=== PATIENT | female | born 1980 | race Caucasian/White ===

== ENCOUNTER 2021-08-03 02:49 | Outpatient (CLI) | payer OTHER, SELFPAY ==
--- NOTE | 2021-08-03 03:17 | PC.NURSE ---
[id number].[facility] called,informed pt came in stating she has had a migraine since Monday. Pt has taken fioricet and states the migraine dulls for about 2 hours then comes back just as bad. Pt states her pain is 2 when sitting and 7 when up moving. Orders received for IVF's, benadryl, and reglan.
[2021-08-03 03:35] VITALS: BP 109/56; PULSE 70
[2021-08-03] MEDS: diphenhydrAMINE HCl INJ 50 MG/ML VIAL 25 MG IV PUSH (03:39)
[2021-08-03] MEDS: METOCLOPRAMIDE HCL INJ 10 MG/2 ML VIAL IV PUSH (03:40)
[2021-08-03] MEDS: LACTATED RINGERS 1,000 ML 999 ML IV CONT (03:44)
--- NOTE | 2021-08-03 03:50 | OBADM ---
This patient, Kathie Danielson, admitted to the OB room OB Post 116 for observation. Patient/family oriented to hospital policies and general routines including ID bracelet, bed and alarms, visiting hours, pain management, procedures, bathroom and other care routines, personal items, smoking policy, room service/diet, and visiting hours. Patient/Family are encouraged to report perceived risks to care and to ask questions if they do not understand what they are told or what they should do.
--- NOTE | 2021-08-03 05:08 | PC.NURSE ---
Tigre CNM called,informed pt is stating she is feeling much better and would like to go home and sleep in her own bed. Discharge orders received.
== END 2021-08-03 05:23 ==
LOC: ANHOBOP 02:55 → ANHOBPP 08-09 06:24
PROVIDERS: PCP Nurse Practitioner Family; Visit Provider Obstetrics & Gynecology
DX: R51.9 Headache, unspecified (principal); O13.9 Gestational [pregnancy-induced] hypertension without significant proteinuria, unspecified trimester; Z3A.00 Weeks of gestation of pregnancy not specified
CPT/HCPCS: 99199; J1200; J2765; J7120

== ENCOUNTER 2021-09-29 12:32 | Observation (INO) | payer OTHER, SELFPAY ==
[2021-09-29] VITALS (9 sets, daily range): BP systolic 87–120; BP diastolic 40–67; PULSE 69–84; RESP 16; TEMP 36.2–36.6; BMI 36.8
--- NOTE | 2021-09-29 13:04 | OBADM ---
This patient, Kathie Danielson, admitted to the OB room 113 for observation. Patient/family oriented to hospital policies and general routines including ID bracelet, bed and alarms, visiting hours, pain management, procedures, bathroom and other care routines, personal items, smoking policy, room service/diet, and visiting hours. Patient/Family are encouraged to report perceived risks to care and to ask questions if they do not understand what they are told or what they should do.
[2021-09-29 14:08] LABS: Appearance Urine Clear (Clear); Bilirubin Urine Negative (Negative); Blood Urine Negative (Negative); Color Urine Yellow (Yellow); Glucose Urine UA Negative (Negative); Ketones Urine Negative (Negative); Leukocyte Esterase Ur 1+ LEU/UL (Negative); Nitrate Urine Negative (Negative); Protein Urine Negative (Negative); Urobilinogen Urine 0.2 mg/dL (<2.0); pH Urine 6.5 (5.0-9.0)
[2021-09-29 14:13] LABS: Bacteria Urine Trace /hpf; Mucus Urine Rare /lpf; RBC Urine 0-2 /hpf (0-2); Squamous Epithelial Cell Urine Few /hpf (Few); WBC Urine 0-3 /hpf
[2021-09-29 14:14] LABS: Add Urine Microscopic? YES
[2021-09-29] MEDS: NIFEdipine 30 MG TAB.ER.24 PO (14:50)
--- NOTE | 2021-10-01 07:27 | PM.OBTRLD ---
OB - Triage/Final Diagnosis Visit Information Date of evaluation: 09/29/21 Reason for evaluation: threatened labor Comments/Additional reasons for admission: I have assessed the risk for this patient, Kathie Danielson, and determined that she would benefit from observation care. Evaluation Laboratory results: Laboratory Tests 09/29/21 13:50 Urine Color Yellow Urine Appearance Clear Urine pH 6.5 Ur Specific [place] 1.010 Urine Protein Negative Urine Glucose (UA) Negative Urine Ketones Negative Ur Blood (Man) Negative Urine Nitrate Negative Urine Bilirubin Negative Urine Urobilinogen 0.2 Leukocyte Esterase Rfl 1+ H Urine RBC 0-2 Urine WBC 0-3 Ur Squamous Epith Cells Few Urine Bacteria Trace Urine Mucus Rare
== END 2021-09-29 16:45 | disposition home or self-care (01) ==
PROVIDERS: Advanced Practice Midwife; Admitting Provider Obstetrics & Gynecology; PCP Nurse Practitioner Family; Visit Provider Obstetrics & Gynecology
DX: O47.03 False labor before 37 completed weeks of gestation, third trimester (principal); Z3A.29 29 weeks gestation of pregnancy
CPT/HCPCS: 81001; A9270; G0378; G0379

== ENCOUNTER 2021-10-27 13:52 | Observation (INO) | payer OTHER, SELFPAY ==
[2021-10-27 14:12] VITALS: TEMP 36.3
[2021-10-27 14:17] VITALS: BP 116/61; PULSE 79
[2021-10-27 14:29] VITALS: BMI 36.5
[2021-10-27 15:30] LABS: Appearance Urine Clear (Clear); Bilirubin Urine Negative (Negative); Blood Urine Negative (Negative); Color Urine Yellow (Yellow); Glucose Urine UA Negative (Negative); Ketones Urine Negative (Negative); Leukocyte Esterase Ur 1+ LEU/UL (Negative); Nitrate Urine Negative (Negative); Protein Urine Negative (Negative); Specific Grav Ur 1.015 (1.001-1.035); Urobilinogen Urine 0.2 mg/dL (<2.0); pH Urine 6.5 (5.0-9.0)
[2021-10-27 15:45] LABS: Bacteria Urine Trace /hpf; Squamous Epithelial Cell Urine Few /hpf (Few)
[2021-10-27 15:49] LABS: Add Urine Microscopic? YES
--- NOTE | 2021-10-31 18:34 | P.PNOB_ITS ---
OB - Triage/Final Diagnosis Visit Information Date of evaluation: 10/27/21 Reason for evaluation: threatened labor Comments/Additional reasons for admission: I have assessed the risk for this patient, Kathie Danielson, and determined that she would benefit from observation care. Evaluation Laboratory results: Laboratory Tests 10/27/21 14:17 Urine Color Yellow Urine Appearance Clear Urine pH 6.5 Ur Specific [place] 1.015 Urine Protein Negative Urine Glucose (UA) Negative Urine Ketones Negative Ur Blood (Man) Negative Urine Nitrate Negative Urine Bilirubin Negative Urine Urobilinogen 0.2 Leukocyte Esterase Rfl 1+ H Urine WBC 4-6 H Ur Squamous Epith Cells Few Urine Bacteria Trace
== END 2021-10-27 15:45 | disposition home or self-care (01) ==
PROVIDERS: Advanced Practice Midwife; Admitting Provider Obstetrics & Gynecology; PCP Nurse Practitioner Family; Visit Provider Obstetrics & Gynecology
DX: O47.9 False labor, unspecified (principal); Z3A.00 Weeks of gestation of pregnancy not specified
CPT/HCPCS: 81001; G0378; G0379

== ENCOUNTER 2021-11-12 21:56 | Observation (INO) | payer OTHER, SELFPAY ==
[2021-11-12 22:30] VITALS: BMI 36.5
--- NOTE | 2021-11-13 00:40 | OBADM ---
This patient, Kathie Danielson, admitted to the OB room Labor/Delivery/Recovery 106 for observation. Patient/family oriented to hospital policies and general routines including ID bracelet, bed and alarms, visiting hours, pain management, procedures, bathroom and other care routines, personal items, smoking policy, room service/diet, and visiting hours. Patient/Family are encouraged to report perceived risks to care and to ask questions if they do not understand what they are told or what they should do.
--- NOTE | 2021-12-07 10:21 | PM.OBTRLD ---
OB - Triage/Final Diagnosis Visit Information Comments/Additional reasons for admission: I have assessed the risk for this patient, Kathie Danielson, and determined that she would benefit from observation care. Final Diagnosis (1) False labor: Code(s): O47.9 - False labor, unspecified Status: Acute
== END 2021-11-13 02:30 | disposition home or self-care (01) ==
PROVIDERS: Admitting Provider Obstetrics & Gynecology; PCP Nurse Practitioner Family; Visit Provider Obstetrics & Gynecology
DX: O47.9 False labor, unspecified (principal); Z3A.00 Weeks of gestation of pregnancy not specified
CPT/HCPCS: G0378; G0379

== ENCOUNTER 2021-11-15 16:44 | Observation (INO) | payer OTHER, SELFPAY ==
--- NOTE | 2021-11-15 16:44 | OBADM ---
This patient, Kathie Danielson, admitted to the OB room Labor/Delivery/Recovery 105 for observation. Patient/family oriented to hospital policies and general routines including ID bracelet, bed and alarms, visiting hours, pain management, procedures, bathroom and other care routines, personal items, smoking policy, room service/diet, and visiting hours. Patient/Family are encouraged to report perceived risks to care and to ask questions if they do not understand what they are told or what they should do.
[2021-11-15 17:49] VITALS: BMI 36.5
[2021-11-15 18:03] LABS: Appearance Urine Clear (Clear); Bilirubin Urine Negative (Negative); Color Urine Yellow (Yellow); Glucose Urine UA Negative (Negative); Ketones Urine Negative (Negative); Leukocyte Esterase Ur Negative LEU/UL (Negative); Nitrate Urine Negative (Negative); Protein Urine Negative (Negative); Urobilinogen Urine 0.2 mg/dL (<2.0)
[2021-11-15 18:11] LABS: Add Urine Microscopic? YES; Blood Urine Trace (Negative)
[2021-11-15] MEDS: ZOLPIDEM TARTRATE (*CRX) 5 MG TABLET PO (20:11)
--- NOTE | 2021-11-17 18:04 | P.PNOB_ITS ---
OB - Triage/Final Diagnosis Visit Information Date of evaluation: 11/15/21 Reason for evaluation: threatened labor Comments/Additional reasons for admission: I have assessed the risk for this patient, Kathie Danielson, and determined that she would benefit from observation care. Evaluation Laboratory results: Laboratory Tests 11/15/21 17:52 Urine Color Yellow Urine Appearance Clear Urine pH 6.0 Ur Specific [place] 1.010 Urine Protein Negative Urine Glucose (UA) Negative Urine Ketones Negative Ur Blood (Man) Trace Urine Nitrate Negative Urine Bilirubin Negative Urine Urobilinogen 0.2 Leukocyte Esterase Rfl Negative
--- NOTE | 2021-11-19 07:23 | P.PNOB_ITS ---
OB - Triage/Final Diagnosis Visit Information Date of evaluation: 11/15/21 Reason for evaluation: threatened labor Comments/Additional reasons for admission: I have assessed the risk for this patient, Kathie Danielson, and determined that she would benefit from observation care. Evaluation Laboratory results: Laboratory Tests 11/15/21 17:52 Urine Color Yellow Urine Appearance Clear Urine pH 6.0 Ur Specific [place] 1.010 Urine Protein Negative Urine Glucose (UA) Negative Urine Ketones Negative Ur Blood (Man) Trace Urine Nitrate Negative Urine Bilirubin Negative Urine Urobilinogen 0.2 Leukocyte Esterase Rfl Negative
== END 2021-11-15 20:20 | disposition home or self-care (01) ==
PROVIDERS: Advanced Practice Midwife; Admitting Provider Obstetrics & Gynecology; PCP Nurse Practitioner Family; Visit Provider Obstetrics & Gynecology
DX: O47.9 False labor, unspecified (principal); Z3A.00 Weeks of gestation of pregnancy not specified
CPT/HCPCS: 81001; A9270; G0378; G0379

== ENCOUNTER 2021-11-18 17:03 | Outpatient (CLI) | payer OTHER, SELFPAY ==
[2021-11-18 17:56] VITALS: PULSE 97
== END 2021-11-18 18:10 | disposition home or self-care (01) ==
PROVIDERS: PCP Nurse Practitioner Family; Visit Provider Advanced Practice Midwife
DX: O42.90 Premature rupture of membranes, unspecified as to length of time between rupture and onset of labor, unspecified weeks of gestation (principal); Z3A.00 Weeks of gestation of pregnancy not specified
CPT/HCPCS: 59025; 84112

== ENCOUNTER 2021-11-20 15:08 | Observation (INO) | payer OTHER, SELFPAY ==
[2021-11-20] VITALS (25 sets, daily range): BP systolic 100–128; BP diastolic 60–87; PULSE 64–91; TEMP 36.8; O2SAT 95–100
--- NOTE | ~2021-11-20 | XR_ITS ---
EXAMINATION: XR chest 1V portable Exam Date/Time: 11/20/2021 16:25 CDT HISTORY: shortness of breath/ CHEST TIGHTNESS, DOUBLE SHEILDED Comparison: 06/28/2016. RESULT: Lines, tubes, and devices: None. Lungs and pleura: Clear. Cardiomediastinal silhouette: Stable cardiomediastinal silhouette. Other: No acute osseous or upper abdominal finding. IMPRESSION: No acute cardiopulmonary process. Reviewed, dictated and finalized at location K.
--- NOTE | 2021-11-20 15:08 | OBADM ---
This patient, Kathie Danielson, admitted to the OB room OB Post 115 for observation. Patient/family oriented to hospital policies and general routines including ID bracelet, bed and alarms, visiting hours, pain management, procedures, bathroom and other care routines, personal items, smoking policy, room service/diet, and visiting hours. Patient/Family are encouraged to report perceived risks to care and to ask questions if they do not understand what they are told or what they should do.
--- NOTE | 2021-11-20 15:15 | PC.NURSE ---
pt presents with chest tightness, numbness in both hands and a migraine that started around 1100 this morning. Pt reports taking a nap with no relief after.
--- NOTE | 2021-11-20 15:30 | PC.NURSE ---
Ok Jurado notifed of this pt and pt complaints. Orders received for pt to have EKG, CBC, CMP, UA and report them back.
--- NOTE | 2021-11-20 15:35 | ECG_ITS ---
Measurements Intervals [place] Rate: 70 P: 40 WY: 160 QRS: 70 QRSD: 102 T: 38 QT: 379 QTc: 411 Interpretive Statements SINUS RHYTHM NORMAL ECG NO PREVIOUS ECG AVAILABLE FOR COMPARISON Electronically Signed On 11-21-2021 11:01:07 CDT by Kwasi Castillo M.D.
[2021-11-20 15:52] LABS: Basophils Percent Auto 0.4 % (0.2-1.2); Eosinophils Absolute Auto 0.1 K/mm3 (0-0.3); Eosinophils Percent Auto 0.8 % (0-4.4); Hematocrit 29.5 % (37.0-47.0); Hemoglobin 9.3 g/dL (12.0-15.0); Lymphocytes Absolute Auto 1.72 K/mm3 (0.9-3.2); Lymphocytes Percent Auto 17.5 % (18.3-44.2); Mean Corpuscular HGB Conc 31.5 g/dl (32-36); Mean Corpuscular Hemoglobin 26.4 pg (26-34); Mean Corpuscular Volume 83.8 fl (80-100); Mean Platelet Volume 10.7 fl (7.4-10.4); Monocytes Absolute Auto 0.7 K/mm3 (0.1-0.6); Neutrophils Absolute Auto 7.1 K/mm3 (1.3-6.7); Neutrophils Percent Auto 72.3 % (45.5-73.1); Platelet Count Result 167 k/mm3 (150-375); Red Blood Count 3.52 M/mm3 (4.2-5.4); Red Cell Distribution Width 14.4 % (11.5-14.5); White Blood Count 9.9 K/mm3 (4.5-10.0)
[2021-11-20 16:02] LABS: Alanine Aminotransferase 9 U/L (6-35); Albumin Level 3.5 g/dL (3.5-5.1); Alkaline Phosphatase 100 U/L (38-126); Anion Gap 4 mmol/L (8-16); Aspartate Amino Transferase 12 U/L (14-36); Bilirubin,Total 0.3 mg/dL (0.2-1.3); Blood Urea Nitrogen 6 mg/dL (7-17); Calcium 8.5 mg/dL (8.4-10.2); Carbon Dioxide 19 mmol/L (22-30); Chloride 108 mmol/L (98-107); Estimated Glomerular Filt Rate > 60; Glucose 97 mg/dL (65-110); Potassium 3.6 mmol/L (3.4-5.0); Sodium 131 mmol/L (137-145)
[2021-11-20 16:03] LABS: Appearance Urine Clear (Clear); Bilirubin Urine Negative (Negative); Blood Urine Negative (Negative); Color Urine Yellow (Yellow); Glucose Urine UA Negative (Negative); Ketones Urine Negative (Negative); Leukocyte Esterase Ur Trace LEU/UL (NEGATIVE); Nitrate Urine Negative (Negative); Protein Urine Negative (Negative); Specific Grav Ur 1.025 (1.001-1.035); Urobilinogen Urine 0.2 mg/dL (<2.0)
[2021-11-20 16:13] LABS: Mucus Urine Rare /lpf; RBC Urine 0-2 /hpf (0-2); Squamous Epithelial Cell Urine Many /hpf (Few); WBC Urine 0-3 /hpf (0-3)
--- NOTE | 2021-11-20 16:16 | PC.NURSE ---
Ok Jurado updated with labs and ekg results. Orders received for pt to have a chest xray and neb tx.
[2021-11-20 16:24] LABS: Add Urine Microscopic? YES
[2021-11-20] MEDS: ALBUTEROL SULFATE NEB 2.5 MG/3 ML INH 1.25 MG INHALATION (16:25)
--- NOTE | 2021-11-20 16:50 | PC.NURSE ---
ANNALISA Jurado updated on pt. Pt reports feeling better and wanting to go home. Discharge order received from ANNALISA.
--- NOTE | 2021-11-24 07:31 | P.PNOB_ITS ---
OB - Triage/Final Diagnosis Visit Information Date of evaluation: 11/20/21 Reason for evaluation: other (SOB) Comments/Additional reasons for admission: I have assessed the risk for this patient, Kathie Danielson, and determined that she would benefit from observation care. Evaluation Laboratory results: Laboratory Tests 11/20/21 11/20/21 11/20/21 15:42 15:42 15:43 WBC 9.9 RBC 3.52 L Hgb 9.3 L Hct 29.5 L MCV 83.8 MCH 26.4 MCHC 31.5 L RDW 14.4 Plt Count 167 MPV 10.7 H Immature Gran % (Auto) 2.0 H Neut % (Auto) 72.3 Lymph % (Auto) 17.5 L [place] % (Auto) 7.0 Eos % (Auto) 0.8 Baso % (Auto) 0.4 Lymph # (Auto) 1.72 [place] # (Auto) 0.7 H Eos # (Auto) 0.1 Baso # (Auto) 0.0 Abs Immat Gran (auto) 0.20 H Absolute Neuts (auto) 7.1 H Absolute Nucleated RBC 0.0 Nucleated RBC % 0.0 Sodium 131 L Potassium 3.6 Chloride 108 H Carbon Dioxide 19 L Anion Gap 4 L BUN 6 L Creatinine 0.50 L Estim Creat Clear Calc Not Reportable Estimated GFR > 60 Glucose 97 Calcium 8.5 Total Bilirubin 0.3 AST 12 L ALT 9 Alkaline Phosphatase 100 Total Protein 7.0 Albumin 3.5 Urine Color Yellow Urine Appearance Clear Urine pH 6.0 Ur Specific [place] 1.025 Urine Protein Negative Urine Glucose (UA) Negative Urine Ketones Negative Ur Blood (Man) Negative Urine Nitrate Negative Urine Bilirubin Negative Urine Urobilinogen 0.2 Ur Leukocyte Esterase Trace H Urine RBC 0-2 Urine WBC 0-3 Ur Squamous Epith Cells Many H Urine Mucus Rare
== END 2021-11-20 17:00 | disposition home or self-care (01) ==
PROVIDERS: Advanced Practice Midwife; Admitting Provider Obstetrics & Gynecology; PCP Nurse Practitioner Family; Visit Provider Obstetrics & Gynecology
DX: O26.893 Other specified pregnancy related conditions, third trimester (principal); R06.02 Shortness of breath; Z3A.37 37 weeks gestation of pregnancy
CPT/HCPCS: 36415; 71045; 80053; 81001; 85025; 93005; G0378; G0379

== ENCOUNTER 2021-12-06 06:55 | Inpatient (IN) | payer OTHER, SELFPAY ==
[2021-12-06] VITALS (87 sets, daily range): BP systolic 77–154; BP diastolic 41–91; PULSE 58–108; RESP 16; TEMP 36.2–36.7; O2SAT 92–100; BMI 36.5
--- OUTSIDE RECORDS SUMMARY | 2021-12-06 07:02 | XMS_ITS | Encounter Summary ---
:1980 Author Reason for Visit OB visit OB [id number] EDC 12/10/2021 lmp 03/13/2021 Assessment and Plan Assessment Note Patient is _34__weeks . Discuss ed plan. Discussion Note: None recorded.Patient educational handouts: No information available. Plan of Care Reminders Provider Appointments None recorded. ? ? Lab None recorded. ? ? Referral None recorded. ? ? Procedures None recorded. ? ? Surgeries None recorded. ? ? Imaging None recorded. ? ? Medications Name Start Date ? ? tjdbwaepdg-luakutfxevqsp-uzrnswgv 50 mg-325 mg-40 mg t ablet ? TAKE ONE TABLET EVERY FOUR TO SIX HOURS NEEDED. MA X 6 TABLETS IN 24 HOURS nifedipine ER 30 mg tablet,extended release 24 hr ? TAKE 1 TABLET BY MOUTH EVERY DAY ondansetron HCl 4 mg tablet ? TAKE 1 TABLET BY MOUTH EVERY 4 TO 6 HOURS NEEDED F OR NAUSEA ? zolpidem 5 mg tablet ? TAKE 1 TABLET BY MOUTH EVERY DAY AT BEDTIME Medications Administered None recorded. Vitals Height Weight BMI Blood Pressure 5 ft 8 in 236.99 lbs 36 kg/m2 110/68 mm[Hg] Results Lab Results None recorded. Allergies Code Code System Name Reaction Severity Onset 6922 RxNorm Metronidazole Rash ? ? Problems Name Status Onset Date Source ? Active 06/14/2021 ? Maternal Obesity Complicating , Childbirth and the Acti ve ? ? 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 ? History of Loop Electrosurgical Excision Procedure Active ? ? History of Gestational
--- OUTSIDE RECORDS SUMMARY | 2021-12-06 07:02 | XMS_ITS | Encounter Summary ---
:1980 Author Reason for Visit OB visit OB [id number] EDC 12/10/2021 LMP 03/13/2021 Assessment and Plan Assessment Note Patient is _30__weeks . Discuss ed plan. 1. Routine care 2. Threatened premature labor - not del ivered ? Procardia XL 30 mg tablet,extended re lease Discussion Note: None recorded.Patient educational handouts: No information available. Plan of Care Reminders Provider Appointments None recorded. ? ? Lab None recorded. ? ? Referral None recorded. ? ? Procedures None recorded. ? ? Surgeries None recorded. ? ? Imaging None recorded. ? ? Medications Name Start Date ? ? lmzftsnapn-qxdqasnfsgbjh-elhgiagv 50 mg-325 mg-40 mg t ablet ? [...] BMI Blood Pressure 5 ft 8 in 242 lbs 36.8 kg/m2 114/74 mm[Hg] Results Lab Results None recorded. Allergies Code Code System Name Reaction Severity Onset 6922 RxNorm Metronidazole Rash ? ? Problems Name Status Onset Date Source ? Active 06/14/2021 ? Maternal Obesity Complicating , Childbirth and the Acti ve ? ? Puerperium, Antepart
--- OUTSIDE RECORDS SUMMARY | 2021-12-06 07:02 | XMS_ITS | Encounter Summary ---
:1980 Author Reason for Visit None recorded. Assessment and Plan 1. Advanced maternal age ? US, obstetric, follow-up Discussion Note: None recorded.Patient educational handouts: No information available. Plan of Care Reminders Provider Appointments None recorded. ? ? Lab None recorded. ? ? Referral None recorded. ? ? Procedures None recorded. ? ? Surgeries None recorded. ? ? Imaging US, Obstetric, Follow-up 11/10/2021 Christiane mccarthy Medications Name Start Date ? ? ujhaxfprok-ybejlfvkfbqaf-eqzbydlv 50 mg-325 mg-40 mg t ablet ? [...] AT BEDTIME Medications Administered None recorded. Vitals None recorded. Results Lab Results None recorded. Allergies Code Code System Name Reaction Severity Onset 6922 RxNorm Metronidazole Rash ? ? Problems Name Status Onset Date Source ? Active 06/14/2021 ? Maternal Obesity Complicating , Childbirth and the Acti ve ? ? 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 ? History of Loop Electrosurgical Excision Procedure Active ? ? History of Gestational Hypertension Active ? ? Procedures Date Name Performed by ? 06/12/2016 Colposcopy Info
--- OUTSIDE RECORDS SUMMARY | 2021-12-06 07:02 | XMS_ITS | Encounter Summary ---
:1980 Author Reason for Visit OB visit Assessment and Plan 1. Routine care Discussion Note: None recorded.Patient educational handouts: No information available. Plan of Care Reminders Provider Appointments None recorded. ? ? Lab None recorded. ? ? Referral None recorded. ? ? Procedures None recorded. ? ? Surgeries None recorded. ? ? Imaging None recorded. ? ? Medications Name Start Date ? ? kzffnhbfau-hsvhdkfpnlkbn-ysgxkxme 50 mg-325 mg-40 mg t ablet ? [...] BMI Blood Pressure 5 ft 8 in 240 lbs 36.5 kg/m2 130/77 mm[Hg] Results Lab Results None recorded. Allergies [...]
--- OUTSIDE RECORDS SUMMARY | 2021-12-06 07:02 | XMS_ITS ---
:1980 Author Care Team Providers Name Role Phone Rain Jurado Primary Care Provider Unavailable Allergies Code Code System Name Reaction Severity Status Onset 6921 RxNorm Metronidazole Rash ? Active ? Medications Name Status Start Date Stop Date ? ? albuterol sulfate HFA 90 mcg/actuation aerosol inhaler Completed ? 07/13/2021 INHALE 2 PUFFS BY MOUTH EVERY 6 HOURS NEEDED FOR SHORTNESS O F BREATH Alprazolam Intensol 1 mg/mL oral concentrate Completed ? 04/12/2018 take 0.25 milliliter by oral route 3 ti mes every day mixed with water, juice, soda, soda-like beverage, applesauce or pudding amoxicillin 875 mg tablet Completed ? 2020 TAKE 1 TABLET BY MOUTH EVERY 12 HOURS UNTIL ALL TAKEN azithromycin 250 mg tablet Completed ? 07/13 mrchsedjsf-zmkgibjaxvwpa-mzaekehz 50 mg-325 Active ? Not available mg-40 mg tablet Cleocin 100 mg vaginal suppository Completed 09/13/2018 09/14/2018 insert 1 suppository by vaginal route every night for 3 days at bedtime clindamycin 2 % vaginal cream Completed 09/14/2018 insert 1 applicatorful by vaginal route every day for 7 days at bedtime clindamycin HCl 300 mg capsule Completed ? 1 07/10/2020 TAKE 1 CAPSULE BY MOUTH EVERY 6 HOURS TILL GONE. Clindesse 2 % vaginal cream,extended release Completed 12/201604/12/2018 insert 1 applicatorful by vaginal route once Cyclessa (28) 0.1 mg/0.125 mg/0.15 mg-25 mcg tablet Completed 07/14/2014 07/17/2017 take 1 tablet by oral route every day for 28 days Depo-Provera 150 mg/mL intramuscular syringe Completed 07/201407/17/2017 inject 1 milliliter by intramuscular route every 3 months Iveth 0.35 mg tablet Completed 11/15/2018 05/10/2021 take 1 tablet by oral rout
--- OUTSIDE RECORDS SUMMARY | 2021-12-06 07:02 | XMS_ITS | Encounter Summary ---
:1980 Author Reason for Visit OB visit OB [id number] EDC 12/10/2021 LMP 03/13/2021 Assessment and Plan Assessment Note Patient is _36__weeks . Discuss ed plan. 1. Routine care Discussion Note: None recorded.Patient educational handouts: No information available. Plan of Care Reminders Provider Appointments None recorded. ? ? Lab None recorded. ? ? Referral None recorded. ? ? Procedures None recorded. ? ? Surgeries None recorded. ? ? Imaging None recorded. ? ? Medications Name Start Date ? ? pwfoanpjdq-cbmrbjgarojen-jwlkosym 50 mg-325 mg-40 mg t ablet ? [...] BMI Blood Pressure 5 ft 8 in 239 lbs 36.3 kg/m2 112/70 mm[Hg] Results Lab Results None recorded. Allergies Code Code System Name Reaction Severity Onset 6922 RxNorm Metronidazole Rash ? ? Problems Name Status Onset Date Source ? Active 06/14/2021 ? Maternal Obesity Complicating , Childbirth and the Acti ve ? ? 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 ? History of Loop Electrosurgical Excision Procedure
--- OUTSIDE RECORDS SUMMARY | 2021-12-06 07:02 | XMS_ITS | Encounter Summary ---
:1980 Author Reason for Visit OB visit OB [id number] EDC 12/10/2021 LMP 03/13/2021 Assessment and Plan Assessment Note Patient is __35_weeks . Discuss ed plan. 1. Routine care Discussion Note: None recorded.Patient educational handouts: No information available. Plan of Care Reminders Provider Appointments None recorded. ? ? Lab None recorded. ? ? Referral None recorded. ? ? Procedures None recorded. ? ? Surgeries None recorded. ? ? Imaging None recorded. ? ? Medications Name Start Date ? ? cugspdujeq-hnyvgkvkuomnh-rfseyjql 50 mg-325 mg-40 mg t ablet ? [...] BEDTIME Medications Administered None recorded. Vitals Height BMI 5 ft 8 in 36.8 kg/m2 Results Lab Results None recorded. Allergies Code Code System Name Reaction Severity Onset 5678 RxNorm Metronidazole Rash ? ? Problems Name Status Onset Date Source ? Active 06/14/2021 ? Maternal Obesity Complicating , Childbirth and the Acti ve ? ? 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 ? History of Loop Electrosurgical Excision Procedure Active ? ?
--- OUTSIDE RECORDS SUMMARY | 2021-12-06 07:02 | XMS_ITS | Encounter Summary ---
:1980 Author Reason for Visit OB visit OB [id number] EDC 12/10/2021 LMP 03/13/2021 Assessment and Plan Assessment Note Patient is __37_weeks . Discuss ed plan. 1. Routine care Discussion Note: None recorded.Patient educational handouts: No information available. Plan of Care Reminders Provider Appointments None recorded. ? ? Lab None recorded. ? ? Referral None recorded. ? ? Procedures None recorded. ? ? Surgeries None recorded. ? ? Imaging None recorded. ? ? Medications Name Start Date ? ? ybtwecshax-pkqovewmnnhml-dtnxiuqd 50 mg-325 mg-40 mg t ablet ? [...] ft 8 in 239 lbs 36.3 kg/m2 126/72 mm[Hg] Results Lab Results None recorded. Allergies Code Code System Name Reaction Severity Onset 6922 RxNorm Metronidazole Rash ? ? Problems Name Status Onset Date Source ? Active 06/14/2021 ? Maternal Obesity Complicating , Childbirth and the Acti ve ? ? 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 ? History of Loop Electrosurgical Excision Procedure
--- OUTSIDE RECORDS SUMMARY | 2021-12-06 07:02 | XMS_ITS | Encounter Summary ---
:1980 Author Reason for Visit OB visit OB [id number] EDC 12/10/2021 LMP 03/13/2021 Assessment and Plan Assessment Note Patient is _32__weeks . Discuss ed plan. 1. Routine care Discussion Note: None recorded.Patient educational handouts: No information available. Plan of Care Reminders Provider Appointments None recorded. ? ? Lab None recorded. ? ? Referral None recorded. ? ? Procedures None recorded. ? ? Surgeries None recorded. ? ? Imaging None recorded. ? ? Medications Name Start Date ? ? dxrzkofcli-sktbkqussofkt-mtnjnbfo 50 mg-325 mg-40 mg t ablet ? [...] ft 8 in 240 lbs 36.5 kg/m2 116/71 mm[Hg] Results Lab Results None recorded. Allergies Code Code System Name Reaction Severity Onset 6922 RxNorm Metronidazole Rash ? ? Problems Name Status Onset Date Source ? Active 06/14/2021 ? Maternal Obesity Complicating , Childbirth and the Acti ve ? ? 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 ? History of Loop Electrosurgical Excision Procedure
--- OUTSIDE RECORDS SUMMARY | 2021-12-06 07:03 | XMS_ITS ---
:1980 Author Care Team Providers Name Role Phone YOVANI BEDOLLA MD OTHER [phone] DURGA RODRÍGUEZ NP Primary Care Provider Unavailable Allergies Code Code System Name Reaction Severity Status Onset 20271119 RxNorm Metrogel ? ? Active ? Notes: Some allergies listed in Docume nts: #[id number], #[id number], #[id number] could not be added to this patient's chart. Please review these documents and add these allergies to the patient's chart manuall y as needed. Medications Name Status Start Date Stop Date ? ? alprazolam 0.25 mg tablet Active ? Not av ailable TK 1 T PO QD PRN amoxicillin 500 mg capsule Completed ? 11/21 TK 1 C PO Q 12 H FOR 10 DAYS amoxicillin 500 mg tablet Completed ? 2016 Take 1 tablet every 12 hours by oral route for 10 days. amoxicillin 875 mg tablet Active ? Not av ailable TK 1 T PO Q 12 H azithromycin 500 mg tablet Completed ? 06/30 TK 2 TS PO 1 TIME sulfamethoxazole 800 mg-trimethoprim 160 mg tablet Active ? Not available benzonatate 200 mg capsule Completed ? 11/21 TK ONE C PO TID Caziant (28) 0.1 mg/0.125 mg/0.15 mg-25 mcg tablet Unknown ? Not available clindamycin 2 % vaginal cream Active ? No t available IVB FOR 7 DAYS cyclobenzaprine 10 mg tablet Completed ? 10/2016 hydrocodone 5 mg-acetaminophen 325 mg tablet Active ? Not available TK 1 T PO Q 4 H PRF PAIN Lidocaine Viscous 2 % mucosal solution Completed ? 12/04/2013 Take 5 mL every 4-6 hours by oral route as needed for 15 days. methocarbamol 750 mg tablet Completed ? 10/2016
--- OUTSIDE RECORDS SUMMARY | 2021-12-06 07:03 | XMS_ITS | Encounter Summary ---
:1980 Author Reason for Visit OB visit OB [id number] EDC 12/10/2021 LMP 03/13/2021 Assessment and Plan Assessment Note Patient is _28__weeks . Discuss ed plan. 1. Routine care Discussion Note: None recorded.Patient educational handouts: No information available. Plan of Care Reminders Provider Appointments None recorded. ? ? Lab None recorded. ? ? Referral None recorded. ? ? Procedures None recorded. ? ? Surgeries None recorded. ? ? Imaging None recorded. ? ? Medications Name Start Date ? ? vtljndoghx-zuqdksuoczfcv-eldgdafe 50 mg-325 mg-40 mg t ablet ? [...] ft 8 in 242 lbs 36.8 kg/m2 127/77 mm[Hg] Results Lab Results None recorded. Allergies Code Code System Name Reaction Severity Onset 6922 RxNorm Metronidazole Rash ? ? Problems Name Status Onset Date Source ? Active 06/14/2021 ? Maternal Obesity Complicating , Childbirth and the Acti ve ? ? 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 ? History of Loop Electrosurgical Excision Procedur
--- OUTSIDE RECORDS SUMMARY | 2021-12-06 07:03 | XMS_ITS | Encounter Summary ---
:1980 Author Reason for Visit None recorded. Assessment and Plan 1. Maternal obesity complicating pregna ncy, childbirth and the puerperium, antepartum ? US, obstetric, follow-up Discussion Note: None recorded.Patient educational handouts: No information available. Plan of Care Reminders Provider Appointments None recorded. ? ? Lab None recorded. ? ? Referral None recorded. ? ? Procedures None recorded. ? ? Surgeries None recorded. ? ? Imaging US, Obstetric, Follow-up 09/22/2021 Christiane mccarthy Medications Name Start Date ? ? prkjkhsrwy-jkbtfkgnunnag-qowtnwgt 50 mg-325 mg-40 mg t ablet ? [...] Code Code System Name Reaction Severity Onset 9225 RxNorm Metronidazole Rash ? ? Problems Name Status Onset Date Source ? Active 06/14/2021 ? Maternal Obesity Complicating , Childbirth and the Acti ve ? ? 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 ? History of Loop Electrosurgical Excision Procedure Active ? ? History of Gestational Hypertension Active ? ? Procedures Date Name
--- NOTE | 2021-12-06 07:28 | LDADM ---
This patient, Kathie Danielson, was admitted to Labor/Delivery/Recovery 104 on 12/06/21 at 06:55. Plans for labor, pain management and were discussed with patient. Patient/family oriented to hospital policies and general routines including ID bracelet, bed and alarms, visiting hours, pain management, procedures, bathroom and other care routines, personal items, smoking policy, room service/diet and guest tray routines, security routines, and visiting hours. Patient/Family are encouraged to report perceived risks to care and to ask questions if they do not understand what they are told or what they should do. See [facility] for further documentation.
[2021-12-06 07:43] LABS: Basophils Absolute Auto 0.1 K/mm3 (0.0-0.1); Basophils Percent Auto 0.7 % (0.2-1.2); Eosinophils Absolute Auto 0.1 K/mm3 (0-0.3); Eosinophils Percent Auto 0.5 % (0-4.4); Hematocrit 32.7 % (37.0-47.0); Hemoglobin 10.5 g/dL (12.0-15.0); Immature Granulocyte Absolute 0.14 K/mm3 (0.00-0.031); Immature Granulocyte Percent A 1.4 % (0-0.5); Lymphocytes Absolute Auto 1.81 K/mm3 (0.9-3.2); Lymphocytes Percent Auto 18.2 % (18.3-44.2); Mean Corpuscular HGB Conc 32.1 g/dl (32-36); Mean Corpuscular Hemoglobin 26.1 pg (26-34); Mean Corpuscular Volume 81.3 fl (80-100); Mean Platelet Volume 11.1 fl (7.4-10.4); Monocytes Absolute Auto 0.6 K/mm3 (0.1-0.6); Monocytes Percent Auto 5.8 % (2.6-8.5); Neutrophils Absolute Auto 7.3 K/mm3 (1.3-6.7); Neutrophils Percent Auto 73.4 % (45.5-73.1); Platelet Count Result 183 k/mm3 (150-375); Red Blood Count 4.02 M/mm3 (4.2-5.4); Red Cell Distribution Width 15.2 % (11.5-14.5)
[2021-12-06] MEDS: LACTATED RINGERS 1,000 ML 125 ML IV CONT ×2 (07:47→10:46)
[2021-12-06] MEDS: OXYTOCIN 30 UNITS/NS 500 ML 30 UNITS/500 ML BAG IV CONT (07:47)
--- NOTE | 2021-12-06 08:57 | WPDANESEPP ---
Anes - Eval Pre Procedure Procedure: labor pain management Date/Time: 12/06/21 08:57 Surgeon: Chata Preop Diagnosis: Pain during labor Pre Op Diagnosis: Induction of Labor Patient Data Age: 41 Gender: F Height: 68 Weight: 240lbs Last Vital Signs Pulse 80 12/06/21 08:50 BP 125/66 12/06/21 08:50 O2 Del Method Room Air 12/06/21 07:27 Allergies Allergy/AdvReac Type Severity Reaction Status Date / Time metronidazole Allergy Mild RASH Verified 12/06/21 07:34 Home Medications Medication Instructions Recorded Confirmed Type albuterol sulfate 90 mcg/actuation 2 puff inhalation Q4H PRN 09/29/21 12/06/21 History aerosol inhaler Shortness Of Breath famotidine 20 mg tablet (Pepcid) 20 mg PO BID PRN Indigestion 09/29/21 12/06/21 History ferrous sulfate 142 mg (45 mg 142 mg PO BID 09/29/21 12/06/21 History iron) tablet,extended release (Slow Fe) ondansetron HCl 4 mg tablet 4 mg PO Q6H PRN Nausea 09/29/21 12/06/21 History vit no.95-ferrous 1 tablet PO DAILY 09/29/21 12/06/21 History fumarate 28 mg-folic acid 800 mcg tablet () aspirin 81 mg tablet,delayed 81 mg PO DAILY 11/10/21 12/06/21 History release (Ran Low Dose Aspirin) zolpidem 5 mg tablet 1 tablet PO PRN PRN Sleep 12/06/21 12/06/21 History Laboratory Tests 12/06/21 12/06/21 12/06/21 07:24 07:24 07:25 WBC 10.0 K/mm3 K/mm3 (4.5-10.0) RBC 4.02 M/mm3 L M/mm3 (4.2-5.4) Hgb 10.5 g/dL L g/dL (12.0-15.0) Hct 32.7 % L % (37.0-47.0) MCV 81.3 fl fl (80-100) MCH 26.1 pg pg (26-34) MCHC 32.1 g/dl g/dl (32-36) RDW 15.2 % H % (11.5-14.5) Plt Count 183 k/mm3 k/mm3 (150-375) MPV 11.1 fl H fl (7.4-10.4) Immature Gran % (Auto) 1.4 % H % (0-0.5) Neut % (Auto) 73.4 % H % (45.5-73.1) Lymph % (Auto) 18.2 % L % (18.3-44.2) [place] % (Auto) 5.8 % % (2.6-8.5) Eos % (Auto) 0.5 % % (0-4.4) Baso % (Auto) 0.7 % % (0.2-1.2) Lymph # (Auto) 1.81 K/mm3 K/mm3 (0.9-3.2) [place] # (Auto) 0.6 K/mm3 K/mm3 (0.1-0.6) Eos # (Auto) 0.1 K/mm3 K/mm3 (0-0.3) Baso # (Auto) 0.1 K/mm3 K/mm3 (0.0-0.1) Abs Immat Gran (auto) 0.14 K/mm3 H K/mm3 (0.00-0.031) Absolute Neuts (auto) 7.3 K/mm3 H K/mm3 (1.3-6.7) Absolute Nucleated RBC 0.0 K/mm3 K/mm3 (0.0-0.012) Nucleated RBC % 0.0 % % (0.0-0.2) RPR Pending Blood Type AB Positive Antibody Screen Pending EC11/20/21 SR Patient hx anesthesia problems: none Family hx anesthesia problems: none Prior surgeries: leep Results Review: All pre-operative results and documents have been reviewed as part of the pre-operative evaluation. [facility] Surgical History Surgical History H/O LEEP Family History Family History Father Hypertension Unknown Thyroid disease Social History Social History Smoking status: Never smoker Substance use: never Spiritual care concerns: No Exam Day of Procedure 12/06/21 08:57
--- NOTE | 2021-12-06 14:15 | PM.OBPRVD ---
OB - Delivery Note Procedure Delivery date: 12/06/21 Procedure: vaginal delivery Induction method: AROM and Per Pitocin Protocol Delivery monitor: External FHT and External Uterine Route of delivery: Episiotomy description: None Laceration Description: Perineal - 1st Degree Delivery repair: vicryl Specimen: Yes Quantitative Blood Loss (ml): 225 Anesthesia type: Epidural Disposition: Floor [place] Baby Date of : 12/06/21 Time of : 13:51 Weeks of gestation at delivery: 39 Infant gender: Female Weight (pounds): 8 Weight (ounces): 11 presentation: vertex position: Left Occiput Anterior Placenta delivery description: Spontaneous and Abnormal Configuration (small area starting to detach will send for pathology) Cord Vessel Description: 3 Vessels, Nuchal Cord and Delayed Cord Clamping score one minute: 8 score five minutes: 9 Narrative: mother and baby skin to skin in stable condition
[2021-12-06] MEDS: OXYTOCIN 30 UNITS/NS 500 ML 30 UNITS/500 ML BAG 125 UNITS IV CONT (14:20)
[2021-12-06] MEDS: BENZOCAINE 20% AER SPR (*SP) 56 GM CAN 1 SPRAY TOPICAL (15:38)
[2021-12-06] MEDS: WITCH HAZEL 40 PADS 1 PAD TOPICAL (15:38)
[2021-12-06 16:29] LABS: Rapid Plasma Reagin Non-Reactive (NonReactive)
--- NOTE | 2021-12-06 18:44 | OBPPTRN ---
1600 Patient transferred to post room #283 via W/C. Support person present. Ilia Bae RN Oriented to unit, room, information board, rooming in, admission packet and security measures. Patient verbalizes understanding.
[2021-12-06] MEDS: IBUPROFEN 600 MG TABLET PO (19:28)
[2021-12-07 00:05] VITALS: BP 117/63; PULSE 79; RESP 16; TEMP 36.6; O2SAT 99
[2021-12-07] MEDS: IBUPROFEN 600 MG TABLET PO ×4 (04:11→22:31)
[2021-12-07 04:15] VITALS: BP 110/63; PULSE 76; RESP 16; TEMP 36.1; O2SAT 97
[2021-12-07 04:34] LABS: Hematocrit 28.6 % (37.0-47.0); Hemoglobin 9.2 g/dL (12.0-15.0)
--- NOTE | 2021-12-07 07:08 | P.PNOB_ITS ---
OB - PN: Subj Subjective Date/time seen: 12/07/21 07:08 Patient comments: no complaints and pain well controlled baby status: doing well and nursing well [place] feeding status: exclusively breast feeding OB - PN: Obj Data Labs CBC & Chem 7: 12/07/21 04:17 Labs: Laboratory Results - last 24 hr 12/06/21 12/06/21 12/06/21 07:24 07:24 07:25 WBC 10.0 RBC 4.02 L Hgb 10.5 L Hct 32.7 L MCV 81.3 MCH 26.1 MCHC 32.1 RDW 15.2 H Plt Count 183 MPV 11.1 H Immature Gran % (Auto) 1.4 H Neut % (Auto) 73.4 H Lymph % (Auto) 18.2 L [place] % (Auto) 5.8 Eos % (Auto) 0.5 Baso % (Auto) 0.7 Lymph # (Auto) 1.81 [place] # (Auto) 0.6 Eos # (Auto) 0.1 Baso # (Auto) 0.1 Abs Immat Gran (auto) 0.14 H Absolute Neuts (auto) 7.3 H Absolute Nucleated RBC 0.0 Nucleated RBC % 0.0 RPR Non-reactive Blood Type AB Positive Antibody Screen Negative 12/07/21 04:17 WBC RBC Hgb 9.2 L Hct 28.6 L MCV MCH MCHC RDW Plt Count MPV Immature Gran % (Auto) Neut % (Auto) Lymph % (Auto) [place] % (Auto) Eos % (Auto) Baso % (Auto) Lymph # (Auto) [place] # (Auto) Eos # (Auto) Baso # (Auto) Abs Immat Gran (auto) Absolute Neuts (auto) Absolute Nucleated RBC Nucleated RBC % RPR Blood Type Antibody Screen OB - PN A/P Plan day: 1 Plan: routine care Time Spent With Patient Time: Total time spent is greater than 50% in coordination of care (as documented) at patient's floor/unit and/or counseling patient: Time with patient: less than 15 minutes Exam Narrative: NAD abdomen soft, nontender, fundus firm below the umbilicus Extremities nontender, 1+ edema
[2021-12-07 07:30] VITALS: BP 104/63; PULSE 75; RESP 18; TEMP 37; O2SAT 97
[2021-12-07] MEDS: POLYSACCHARIDE IRON COMPLEX 150 MG CAPSULE PO ×2 (08:19→16:37)
[2021-12-07] MEDS: MULTIVIT/MIN/PREN/FOL AC/IRON TABLET 1 TAB PO (08:19)
[2021-12-07] MEDS: DOCUSATE SODIUM 100 MG CAPSULE PO (08:20)
--- NOTE | 2021-12-07 11:35 | PC.NURSE ---
[id number] Introductions were made, then consulted with patient to assess needs related to . Mother led the conversation with her experience feeding her so far. Mother voiced understanding of responsive feedings, stimulating with skin to skin, hand expressed colostrum, talking to infant to encourage if it has been 2 -3 hours since the start of the last , to call if infant does not latch or there is discomfort with . Mother voiced calling for a latch assessment. 09 - Mother had called out for a latch assessment. RN entered room and mother was already burping , then did burp. Mother verbalizes she is able to independently latch with appropriate positioning/alignment. She denies any nipple discomfort and is responsively . Infant is currently meeting outcomes for weight, output, jaundice and feeding frequencies of 8-12 times in 24 hours. Mother declines any additional assistance/education at this time. Mother is encouraged to call for assistance if her infant doesn?t latch or there is discomfort with latching. Mother voiced understanding of information shared and mom and baby guide reviewed for additional resource information . Reported to the primary RN.
[2021-12-07 12:30] VITALS: BP 107/48; PULSE 74; RESP 16; TEMP 37.6; O2SAT 97
--- NOTE | 2021-12-07 13:19 | PC.NURSE ---
[id number] Consulted with patient to assess needs related to . Mother led conversation with her experience with feeding baby so far. Mother works well with her with encouragement. Reviewed working with , breast, nipples and how to protect the nipples with an optimal deep latch, good positioning, and good hand washing. Encouraged understanding the benefits of skin to skin, responding to feeding cues, frequencies of feeding 8-12 times in 24 hours (approximately 2-3 hours), duration of feedings, milk production, intake/output feeding sheet and signs of adequate intake encouraging swallowing at the breast. Reviewed positioning and alignment, supporting breast, off-centered (asymmetrical latch) and leading with the chin with big open wide gape. latched optimally to the right breast in football position after a few attempts. Mother encouraged to latch infant deeper waiting for the big, open, wide gape. Education given to mother of how to visualize suck/swallow ratios and drinking at the breast. Infant was able to maintain latch without discomfort to mother. Nipple care reviewed with optimal latch and good positioning. Resources used to facilitate learning were used from the mom and baby guide. Mother voiced understanding of the education shared, calling for assistance if the infant does not latch or if there is discomfort with .
[2021-12-07 20:00] VITALS: BP 115/58; PULSE 75; RESP 18; TEMP 36.3; O2SAT 99
[2021-12-08] MEDS: IBUPROFEN 600 MG TABLET PO (06:33)
--- NOTE | 2021-12-08 07:19 | PM.OBPNVD ---
OB - PN: Subj Subjective Date/time seen: 12/08/21 07:19 day 2 s/p vaginal delivery doing well OB - PN: Obj Data Labs CBC & Chem 7: 12/07/21 04:17 OB - PN A/P Plan day: 2 Plan: routine care and discharge home Time Spent With Patient Time: Total time spent is greater than 50% in coordination of care (as documented) at patient's floor/unit and/or counseling patient: Review of Systems Review of Systems: All systems reviewed & are unremarkable except as noted in HPI and below Exam Const: General: cooperative, healthy appearing, comfortable and no acute distress
--- NOTE | 2021-12-08 07:21 | PM.OBDSVD ---
DS: Admitting Diagnosis Discharge Date 12/08/2021 Admitting Diagnosis IOL OB - DS: Summary OB Procedures : None OB Procedures Intrapartum: Spontaneous Vag Delivery OB Procedures: : None Time Spent with Patient Time attestation: Total time spent providing and/or coordinating discharge services: DS: Data Data Completed and Pending Pending studies at discharge: Pending at discharge 12/07/21 14:00 Surgical [PTH] Routine Discharge Plan Discharge Attending physician on discharge: Alex Brizuela Discharging Clinician: Rain Jurado Patient Disposition: Home, Self-Care Activity: pelvic rest Diet: regular Patient Instructions: Antibiotic Form Stand Alone Forms: General Discharge Information Follow-up/Referrals: Rain Jurado, CNM [Certified Nurse Ambulance Paramedic] - 4 Weeks Discharge Medications: Continued famotidine [Pepcid] 20 mg Tablet 20 mg PO BID PRN (Reason: Indigestion) albuterol sulfate 90 mcg/actuation HFA aerosol inhaler 2 puff INHALATION Q4H PRN (Reason: Shortness Of Breath) Slow Fe 142 mg (45 mg iron) Tablet Extended Release 142 mg PO BID PNV cmb#95-ferrous fumarate-FA [] 28 mg iron- 800 mcg Tablet 1 tablet PO DAILY aspirin [Ran Low Dose Aspirin] 81 mg Tablet,Delayed Release (Dr/Ec) 81 mg PO DAILY Discontinued ondansetron HCl 4 mg Tablet 4 mg PO Q6H PRN (Reason: Nausea) zolpidem 5 mg tablet 1 tablet PO PRN PRN (Reason: Sleep) Date of admission: 12/06/21 06:55 Primary Care Provider: LuisLori Admitting Provider: Alex Brizuela Attending physician on admission: Alex Brizuela Condition: Stable
[2021-12-08 08:40] VITALS: BP 130/68; PULSE 86; RESP 16; TEMP 36.4; O2SAT 100
[2021-12-08] MEDS: POLYSACCHARIDE IRON COMPLEX 150 MG CAPSULE PO (08:45)
[2021-12-08] MEDS: MULTIVIT/MIN/PREN/FOL AC/IRON TABLET 1 TAB PO (08:45)
[2021-12-08] MEDS: DOCUSATE SODIUM 100 MG CAPSULE PO (08:45)
[2021-12-08] MEDS: TETANUS,DIPHTHERIA,AC PERTUSSIS ADULT (0.5 ML) BOOSTRIX IM (10:55)
[2021-12-09 07:54] VITALS: BP 118/69; PULSE 71; RESP 20; TEMP 36.8; O2SAT 99
== END 2021-12-08 11:29 | disposition home or self-care (01) | DRG 560 ==
LOC: ANHLDR 07:00 → ANHOB2 16:09
PROVIDERS: Admitting Provider Obstetrics & Gynecology; PCP Nurse Practitioner Family; Referring Provider Advanced Practice Midwife; Visit Provider Obstetrics & Gynecology
DX: O69.81X0 Labor and delivery complicated by cord around neck, without compression, not applicable or unspecified (principal); O70.0 First degree perineal laceration during delivery; Z3A.39 39 weeks gestation of pregnancy; Z37.0 Single live birth
CPT/HCPCS: 36415; 85014; 85018; 85025; 86592; 86850; 86900; 86901; 88307; 90715; A9270; J2590; J2795; J7120

== ENCOUNTER 2022-01-06 02:27 | Observation (INO) | payer OTHER, SELFPAY ==
[2022-01-06] VITALS (7 sets, daily range): BP systolic 113–135; BP diastolic 65–85; PULSE 66–101; RESP 16–19; TEMP 35.9–36.4; O2SAT 97–99
--- NOTE | ~2022-01-06 | US_ITS ---
EXAMINATION: US right upper quadrant DATE: 01/06/2022 07:56 INDICATION: Right upper quadrant pain TECHNIQUE: Multiple grayscale and Doppler ultrasound images of the abdomen were obtained. COMPARISON: CT from today FINDINGS: The head and body of the pancreas are normal. The pancreatic tail is obscured by bowel gas. The liver is normal with normal echogenicity and echotexture. No surface nodularity. Normal hepatope steven flow in the main portal vein. Stones are present in the nondistended gallbladder. There is no gal lbladder wall thickening or pericholecystic fluid. The normal common bile duct measures 6 mm. There w as no sonographic Mock sign. IMPRESSION: 1. Cholelithiasis without evidence of cholecystitis. Reviewed, dictated and finalized at location B.
--- NOTE | ~2022-01-06 | CT_ITS ---
EXAMINATION: CT abdomen pelvis w con INDICATION: Epigastric abdominal pain TECHNIQUE: Computed tomographic images of the abdomen and pelvis were obtained after the administrati on of 100 cc of Omnipaque 300 intravenous contrast. The dose-length product (DLP) was 1081.60 mGy-cm. Automated exposure control and iterative reconstruction technique were employed. COMPARISON: 01/19/2009 FINDINGS: The lung bases are clear. The heart size is normal. The gallbladder is contracted. There is mild apparent wall thickening of the gallbladder which could be due to incomplete distention. The li nav, spleen, pancreas, and adrenal glands are normal. The kidneys are unremarkable. No pathologically enlarged abdominal or pelvic lymph nodes are identified. There is no free intraperitoneal gas or johnathan dence of bowel obstruction. There is chronic mild distention of the appendix which measures up to 8 m m. Appendicoliths are noted in the appendix. No periappendiceal inflammatory change is identified. Th ere is a fat-containing umbilical hernia. IMPRESSION: 1. Contracted gallbladder with gallbladder wall thickening which could reflect early cholecystitis or be due to incomplete distention. 2. Chronic mild dilatation of the appendix without periappendiceal inflammatory change. Reviewed, dictated and finalized at location B.
[2022-01-06] MEDS: ONDANSETRON INJ 4 MG/2 ML VIAL IV PUSH (02:56)
[2022-01-06] MEDS: FAMOTIDINE 20 MG/2 ML VIAL IV PUSH (02:56)
[2022-01-06 03:06] LABS: Basophils Absolute Auto 0.1 K/mm3 (0.0-0.1); Basophils Percent Auto 0.9 % (0.2-1.2); Eosinophils Absolute Auto 0.2 K/mm3 (0-0.3); Eosinophils Percent Auto 2.4 % (0-4.4); Hematocrit 38.4 % (37.0-47.0); Hemoglobin 12.3 g/dL (12.0-15.0); Immature Granulocyte Absolute 0.03 K/mm3 (0.00-0.031); Immature Granulocyte Percent A 0.4 % (0-0.5); Lymphocytes Absolute Auto 2.28 K/mm3 (0.9-3.2); Mean Corpuscular Hemoglobin 25.9 pg (26-34); Mean Platelet Volume 10.9 fl (7.4-10.4); Monocytes Absolute Auto 0.5 K/mm3 (0.1-0.6); Monocytes Percent Auto 6.2 % (2.6-8.5); Neutrophils Absolute Auto 4.6 K/mm3 (1.3-6.7); Neutrophils Percent Auto 60.1 % (45.5-73.1); Platelet Count Result 252 k/mm3 (150-375); Red Blood Count 4.74 M/mm3 (4.2-5.4); Red Cell Distribution Width 15.4 % (11.5-14.5); White Blood Count 7.6 K/mm3 (4.5-10.0)
[2022-01-06 03:18] LABS: Alanine Aminotransferase 47 U/L (6-35); Albumin Level 4.7 g/dL (3.5-5.1); Alkaline Phosphatase 158 U/L (38-126); Anion Gap 13 mmol/L (8-16); Aspartate Amino Transferase 100 U/L (14-36); Bilirubin,Total 0.8 mg/dL (0.2-1.3); Blood Urea Nitrogen 12 mg/dL (7-17); Calcium 9.1 mg/dL (8.4-10.2); Carbon Dioxide 22 mmol/L (22-30); Chloride 104 mmol/L (98-107); Estimated CRCL calculation 83 ml/min; Estimated Glomerular Filt Rate > 60; Glucose 102 mg/dL (65-110); Sodium 139 mmol/L (137-145)
--- NOTE | 2022-01-06 03:31 | ED.ABDPAIN ---
HPI - Abdominal Pain General Chief Complaint: Abdominal Pain Stated Complaint: abd pain Time Seen by Provider: 01/06/22 02:43 History of Present Illness HPI narrative: 41-year-old female presenting with epigastric pain that has been intermittent since , similar to when she had gastritis, and she has been taking Pepcid once or twice a day, however she is no longer on Pepcid, and states that she is having intermittent episodes especially after she eats hamburgers, pain is dull and sharp and stabbing, accompanied with nausea and vomiting, worse when she lays flat, no fevers or chills Related Data Home Medications Medication Instructions Recorded Confirmed albuterol sulfate 90 mcg/actuation 2 puff inhalation Q4H PRN 09/29/21 12/06/21 aerosol inhaler Shortness Of Breath famotidine 20 mg tablet (Pepcid) 20 mg PO BID PRN Indigestion 09/29/21 12/06/21 ferrous sulfate 142 mg (45 mg 142 mg PO BID 09/29/21 12/06/21 iron) tablet,extended release (Slow Fe) vit no.95-ferrous 1 tablet PO DAILY 09/29/21 12/06/21 fumarate 28 mg-folic acid 800 mcg tablet () aspirin 81 mg tablet,delayed 81 mg PO DAILY 11/10/21 12/06/21 release (Ran Low Dose Aspirin) Allergies Allergy/AdvReac Type Severity Reaction Status Date / Time metronidazole Allergy Mild RASH Verified 12/06/21 07:34 Review of Systems Review of Systems: CONST: No fever. HEENT: No sore throat C/V: No chest pain RESP: No cough GI: Reports abdominal pain, nausea, vomiting : No dysuria. M/S: No joint pain. SKIN: No rash. NEURO: [No headache or focal numbness or weakness] PSYCH: [No depression] [facility] Past Medical History Medical History (Updated 01/06/22 @ 06:57 by June Pastrana MD) Gastritis Surgical History Surgical History H/O LEEP Family History Family History Father Hypertension Unknown Thyroid disease Social History Social History Smoking status: Never smoker Substance use: never Spiritual care concerns: No Exam Narrative: EXAMINATION OF ORGAN SYSTEMS/BODY AREAS: Constitutional: Vital signs per nursing GENERAL:Appears uncomfortable in bed, better after being sat up HEAD: Normal with no signs of head trauma. EYES: EOMI, conjunctiva normal ENT: Hearing grossly intact LUNGS: Nonlabored breathing. HEART: [Regular rate and rhythm] ABD: [Soft], [tender to palpation] epigastric, no RUQ Pain EXT: Normal range of motion SKIN: [No rashes or lesions.] NEURO: [Alert and oriented x 3. No gross focal sensory or strength deficits.] PSYCH: Normal affect Course Vital Signs Vital signs: Vital Signs Pulse Rate 101 H 01/06/22 02:27 Respiratory Rate 18 01/06/22 02:27 Blood Pressure 122/76 01/06/22 02:27 Pulse Oximetry 99 01/06/22 02:27 Oxygen Delivery Room Air 01/06/22 02:27 Pulse Rate 91 01/06/22 07:10 Respiratory Rate 19 01/06/22 07:10 Blood Pressure 129/82 01/06/22 07:10 Pulse Oximetry 97 01/06/22 07:10 Oxygen Delivery Room Air 01/06/22 02:34 MDM - Abdominal Pain MDM Narrative Medical decision making narrative: Electronic medical record was reviewed. Patient presented to the ED with complaint of [abdominal pain and vomiting]. Vitals [were within acceptable limits]. Physical exam revealed [tenderness to palpation in epigastric abdomen]. Based on the patient's history and physical exam, my differential includes but is not limited to [gastritis, gastroenteritis, cholecystitis, pancreatitis]. [IV access was established by nursing staff. Patient was given zofran, famotidine]. CBC, BMP, lipase, LFTs, bilirubin and alk phos were obtained. Labs were pertinent for extremely elevated lipase. [Decision was made to obtain a CT-abdomen to evaluate for acute abdominal process. CT-abdomen shows possible contracted gallbladder with recom
[2022-01-06 03:40] LABS: Appearance Urine Clear (Clear); Bilirubin Urine Negative (Negative); Color Urine Yellow (Yellow); Glucose Urine UA Negative (Negative); Ketones Urine Negative (Negative); Leukocyte Esterase Ur 1+ LEU/UL (Negative); Nitrate Urine Negative (Negative); Protein Urine Negative (Negative); Urobilinogen Urine 0.2 mg/dL (<2.0); pH Urine 5.5 (5.0-9.0)
[2022-01-06 04:03] LABS: Mucus Urine Rare /lpf; RBC Urine 0-2 /hpf (0-2); Squamous Epithelial Cell Urine Many /hpf (Few)
[2022-01-06 04:05] LABS: Add Urine Microscopic? YES; Blood Urine Trace (Negative)
[2022-01-06 04:30] LABS: Lipase 29658 U/L (23-300)
[2022-01-06] MEDS: LACTATED RINGERS 1,000 ML 999 ML IV CONT (06:37)
[2022-01-06 08:16] LABS: SARS-CoV-2 RNA PCR Negative
--- NOTE | 2022-01-06 09:05 | ADMGEN ---
This patient, Kathie Danielson, was admitted to [facility] Surg Room 303-01. Patient/family oriented to hospital policies and general routines including ID bracelet, bed and alarms, visiting hours, pain management, procedures, bathroom and other care routines, personal items, smoking policy, room service/diet, and visiting hours. Information on how to activate the Rapid Response Team has been discussed. Patient/Family are encouraged to report perceived risks to care and to ask questions if they do not understand what they are told or what they should do.
[2022-01-06] MEDS: LACTATED RINGERS 1,000 ML 125 ML IV CONT ×2 (10:13→18:13)
--- NOTE | 2022-01-06 10:53 | PM.CNGS ---
Assessment and Plan Assessment and plan (1) Acute pancreatitis: Code(s): K85.90 - Acute pancreatitis without necrosis or infection, unspecified Status: Acute Assessment and Plan: Patient presented with epigastric abdominal pain and findings of a contracted gallbladder with wall thickening on CT. Lipase found to be 29,000 suggestive of acute pancreatitis. US showed cholelithiasis but no other findings to suggest cholecystitis. The patient's abdominal pain has completely resolved, which you would not expect with her lipase being this elevated with pancreatitis. Will get a repeat lipase this morning to rule out lab error. If her lipase remains elevated, then we would recommend to continue to treat her acute pancreatitis with IV fluids, bowel rest, and analgesics. This appears most likely to be biliary pancreatitis given the gallstones on US. No history of alcohol abuse or any medications that could cause medication-induced pancreatitis. Will add triglycerides to morning labs to also rule out hypertriglyceridemia as a cause, although very unlikely. I discussed with the patient that we would recommend a laparoscopic cholecystectomy, possible open, under general anesthesia by Dr. Camarena if further workup still suggests biliary pancreatitis. Description of the procedure, risks, benefits, expected outcomes, and expected recovery were discussed with the patient in detail. All questions were answered. We would wait to plan surgery until her lipase comes down closer to normal and her pancreatitis improves. Thank you for allowing us to see the patient in consultation and we will continue to follow along with you. (2) Cholelithiasis: Code(s): K80.20 - Calculus of gallbladder without cholecystitis without obstruction Status: Acute Assessment and Plan: US showed cholelithiasis with no cholecystitis. See plan above. (3) Elevated LFTs: Code(s): R79.89 - Other specified abnormal findings of blood chemistry Status: Acute (4) Obesity (BMI 30-39.9): Code(s): E66.9 - Obesity, unspecified Status: Acute (5) Mother currently breast-feeding: Code(s): Z39.1 - Encounter for care and examination of lactating mother Status: Acute Assessment and Plan: Planning to continue to pump while hospitalized. She will speak with anesthesia regarding recommendations of pumping and dumping with medications given during surgery. (6) Umbilical hernia without obstruction and without gangrene: Code(s): K42.9 - Umbilical hernia without obstruction or gangrene Status: Acute Assessment and Plan: Incidentally noted on CT, which suggests this is a fat containing umbilical hernia. This is nontender on exam and she is asymptomatic. This is not contributing to her acute symptoms. Discussed the findings with the patient and what to look for in the future for symptoms or incarceration. Recommended to discuss options for surgical repair with Dr. Camarena in the future. Plan I have discussed the patient's case and plan of care with Dr. Camarena. History of Present Illness Consult details Consult date: 01/06/22 Reason for consult: gallstones ( Cholelithiasis, acute pancreatitis) Requesting physician: Jesus Driscoll MD Narrative: This is a 41-year-old female who is 4 weeks from a vaginal delivery, who presented to the ER early this morning with complaints of epigastric abdominal pain. She reports having about 3 episodes of similar type pain during her that resolved at home prior to seeking medical attention. She would reportedly force herself to vomit and felt the pain improved. About 2 weeks ago, she had a hamburger and developed epigastric abdominal pain a few hours after eating. Again she forced herself to vomit and her pain resolved. Then, 6 days ago she had eaten [employer] and developed the same epigastric abdominal pain a few hours after eating. She
--- NOTE | 2022-01-06 12:45 | PM.IMHP ---
H&P: HPI History of Present Illness Date/Time: 01/06/22 12:45 Chief Complaint: Abdominal pain. Narrative: This is a pleasant 41-year-old female who presented to the emergency department in the band director hours via private vehicle from home for evaluation abdominal pain. She was wakened from sleep at about 01:00 with a cramping pain in the epigastric region for which she took Tylenol almost immediately as she has had several similar episodes over the last couple of weeks and she wanted to get on top of the pain. Unfortunately the Tylenol did not help and instead her pain became more intense to the point where she had constant sharp and stabbing pain which did not radiate. She also had nausea and multiple episodes of vomiting which led her to come in for evaluation. She was given acetaminophen and famotidine on arrival to the ER and within a couple of hours her pain resolved and has not returned. Her workup included a CT of the abdomen and pelvis which showed a contracted gallbladder with gallbladder wall thickening but no visible stones, elevated LFTs, and a lipase of nearly 29,000. This morning a right upper quadrant ultrasound revealed cholelithiasis but no evidence of cholecystitis and her repeat lipase this morning was down to nearly 5000. As mentioned she had several similar symptoms over the past couple of weeks which seemed to be related to food intake. She gave to her 4th child about a month ago and she reports having several episodes of similar pain while as well. At the time my evaluation she is resting comfortably in again she has not had any recurrent pain. She denies fever, chills, sweats, chest pain, shortness of breath, hematemesis, and diarrhea. She has no history of pancreatitis. She has not noticed any dark urine, light-colored stools, or yellowing of the skin. No rash or pruritus. Review of Systems Review of Systems: Twelve systems were reviewed and are negative except for as per HPI. [facility] Past Medical History Medical History (Updated 01/06/22 @ 20:51 by Yina Oakley PA-C) Anemia Anxiety Asthma Gastritis induced hypertension Surgical History Surgical History (Updated 01/06/22 @ 13:27 by Yian Oakley PA-C) History of loop electrical excision procedure (LEEP) (2006) Family History Family History Father Hypertension Unknown Thyroid disease Grandparent Gallbladder disease Mother Gallbladder disease Social History Social History (Updated 01/06/22 @ 20:52 by Yina Oakley PA-C) Social History: Surrogate medical decision maker: James Chacko, spouse. Code status: Full code. Smoking packs per day: 1 Smoking cigarettes per day: 20.0 Years smoked: 30 Smoking pack-years: 30.00 Smoking status: Former smoker Additional smoking assessment comments: Quit in 2018. Alcohol intake: former Substance use: never Living arrangements: with family Additional living arrangements comments: Lives with her and 4 children. 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 Spiritual care concerns: No (Pentecostal) Meds Home Medications and Allergies Home Medications Medication Instructions Recorded Confirmed Type albuterol sulfate 90 mcg/actuation 2 puff inhalation Q4H PRN 09/29/21 01/06/22 History aerosol inhaler Shortness Of Breath famotidine 20 mg tablet (Pepcid) 20 mg PO BID PRN Indigestion 09/29/21 01/06/22 History ferrous sulfate 142 mg (45 mg 142 mg PO BID 09/29/21 01/06/22 History iron) tablet,extended release (Slow Fe) vit no.95-ferrous 1 tablet PO DAILY 09/29/21 01/06/22 History fumarate 28 mg-folic acid 800 mcg tablet () Allergies Allergy/AdvReac Type Severity Reaction Status Date / Time metronidazole Allergy Mild RASH Verified 01/06/22 09:45 Vital Signs Vital Signs - 24 hr /
[2022-01-06 13:41] LABS: Lipase 5199 U/L (23-300)
--- NOTE | 2022-01-06 16:45 | WPDGICN ---
Assessment and Plan Assessment and plan (1) Acute gallstone pancreatitis: Code(s): K85.10 - Biliary acute pancreatitis without necrosis or infection Status: Acute Assessment and Plan: denies alcohol or previous episode of pancreatitis other than discomfort during timing of lap francia per surgery (2) Transaminitis: Code(s): R74.01 - Elevation of levels of liver transaminase levels Status: Acute Assessment and Plan: from pancreatitis normal bilirubin and also normal bile duct size will need lap francia, unlikely she has stone in bile duct as she is asymptomatic now monitor (3) Mother currently breast-feeding: Code(s): Z39.1 - Encounter for care and examination of lactating mother Status: Acute (4) Nausea & vomiting: Code(s): R11.2 - Nausea with vomiting, unspecified Status: Acute Assessment and Plan: resolved (5) Cholelithiasis: Code(s): K80.20 - Calculus of gallbladder without cholecystitis without obstruction Status: Acute GI Consult Note Consult date/time: 01/06/22 16:45 Reason for consult: GS pancreatitis HPI: Kathie Danielson is a 41 year old female who is 4 weeks from a normal vaginal delivery. She came here with worsening pain in epigastric area.?She had similar discomfort during but did not require medical intervention, during previous episode also had emesis after eating fatty meals. Pain subsided after she came to ER, also was nauseous and now feeling better. Labs showed a lipase of 29,000 and elevated LFTs with normal total bilirubin.? White blood cell count normal.? CT scan of the abdomen and pelvis reviewed and showed a contracted gallbladder with gallbladder wall thickening, a fat containing umbilical hernia, Ultrasound showed GS. Review of Systems Constitutional: Constitutional: Denies headache(s) and Denies weakness Eyes: Eyes: Denies blurry vision ENT: Reports Normal hearing present, Denies headache(s) and Denies neck pain Cardiovascular: Cardiovascular: Denies chest pain and Denies dyspnea Respiratory: Respiratory: Denies dyspnea Gastrointestinal: Gastrointestinal: Reports no additional gastrointestinal complaints Genitourinary: Genitourinary: Denies dysuria Musculoskeletal: Musculoskeletal: Denies neck pain Integumentary/Breasts: Skin/Breast: Denies dry skin Neurologic: Reports Normal hearing present, Denies headache(s) and Denies weakness Psychiatric: Psychiatric: Denies anxiety Endocrine: Endocrine: Denies change in body appearance Hematologic/Lymphatic: Hematologic/Lymphatic: Denies easy bleeding Allergic/Immunologic: Allergic/Immunologic: Denies urticaria PMFSH Past Medical History Medical History (Updated 01/06/22 @ 16:49 by Jesus Driscoll MD) Acute gallstone pancreatitis Anemia Anxiety Asthma Gastritis induced hypertension Surgical History Surgical History (Updated 01/06/22 @ 13:27 by Yina Oakley PA-C) History of loop electrical excision procedure (LEEP) (2006) Family History Family History Father Hypertension Unknown Thyroid disease Grandparent Gallbladder disease Mother Gallbladder disease Social History Social History (Updated 01/06/22 @ 13:31 by Yina Oakley PA-C) Social History: Surrogate medical decision maker: James Chacko, spouse. Code status: Full code. Smoking packs per day: 1 Smoking cigarettes per day: 20.0 Years smoked: 34 Smoking pack-years: 34.00 Smoking status: Former smoker Additional smoking assessment comments: Quit 2018 Alcohol intake: former Substance use: never Living arrangements: with family Additional living arrangements comments: Lives with her and has 4 children. 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 Spiritual care concerns: No (Nando
[2022-01-07] VITALS (14 sets, daily range): BP systolic 105–120; BP diastolic 54–75; PULSE 60–78; RESP 12–18; TEMP 36.2–36.6; O2SAT 96–99
[2022-01-07] MEDS: LACTATED RINGERS 1,000 ML 125 ML IV CONT (02:38)
[2022-01-07 05:55] LABS: Hematocrit 36.2 % (37.0-47.0); Hemoglobin 11.1 g/dL (12.0-15.0); Mean Corpuscular HGB Conc 30.7 g/dl (32-36); Mean Corpuscular Hemoglobin 25.5 pg (26-34); Mean Platelet Volume 10.7 fl (7.4-10.4); Platelet Count Result 203 k/mm3 (150-375); Red Blood Count 4.36 M/mm3 (4.2-5.4); Red Cell Distribution Width 15.5 % (11.5-14.5); White Blood Count 4.6 K/mm3 (4.5-10.0)
[2022-01-07 06:07] LABS: Alanine Aminotransferase 37 U/L (6-35); Albumin Level 3.8 g/dL (3.5-5.1); Alkaline Phosphatase 126 U/L (38-126); Anion Gap 6 mmol/L (8-16); Aspartate Amino Transferase 30 U/L (14-36); Bilirubin,Total 0.7 mg/dL (0.2-1.3); Blood Urea Nitrogen 8 mg/dL (7-17); Calcium 8.6 mg/dL (8.4-10.2); Carbon Dioxide 28 mmol/L (22-30); Chloride 105 mmol/L (98-107); Estimated CRCL calculation 85 ml/min; Estimated Glomerular Filt Rate > 60; Glucose 94 mg/dL (65-110); Lipase 243 U/L (23-300); Magnesium 2.1 mg/dL (1.6-2.3); Sodium 139 mmol/L (137-145); Triglycerides 52 mg/dL (<150)
--- NOTE | 2022-01-07 07:40 | PM.IMPN ---
Subjective Date/time seen: 01/07/22 07:40 Objective Data Vital Signs Vital Signs: Vital Signs - 24 hr 01/06/22 09:29 01/06/22 08:27 01/06/22 14:00 Temperature 97.5 F L 97.0 F L Pulse Rate 66 66 70 Respiratory Rate 18 18 16 Blood Pressure 113/65 119/67 Pulse Oximetry 99 99 98 Oxygen Delivery Room Air 01/06/22 21:50 01/07/22 05:43 Temperature 96.7 F L 97.1 F L Pulse Rate 70 65 Respiratory Rate 18 17 Blood Pressure 135/74 105/60 Pulse Oximetry 98 96 Oxygen Delivery Intake/Output Intake/Output: Intake & Output 01/04/22 01/05/22 01/06/22 01/07/22 23:59 23:59 23:59 23:59 Intake Total 4097 1000 Balance 4097 1000 Meds/Results Medications: Active Medications Generic Name Dose Route Start Last Admin Trade Name Freq PRN Reason Stop Dose Admin Albuterol 2 puff 01/06/22 20:36 Albuterol Sulfate (*Sp) Aerosol 1 Puff INHALATION Q4H PRN Shortness Of Breath Lactated Ringer's 1,000 mls @ 125 mls/hr 01/06/22 07:55 01/07/22 02:38 Lr - Lactated Ringers Iv IV CONT 125 mls/hr .Q8H MOLINA Administration Ondansetron HCl 4 mg 01/06/22 07:53 Ondansetron Inj 4 Mg/2 Ml Vial IV PUSH Q4H PRN Nausea Radiology Results: ITS Impressions Upper Quadrant Ultrasound 01/06/22 08:17 IMPRESSION: 1. Cholelithiasis without evidence of cholecystitis. Abdomen/Pelvis CT 01/06/22 08:20 IMPRESSION: 1. Contracted gallbladder with gallbladder wall thickening which could reflect early cholecystitis or be due to incomplete distention. 2. Chronic mild dilatation of the appendix without periappendiceal inflammatory change. Labs Labs: Laboratory Results - last 24 hr 01/06/22 01/06/22 01/07/22 02:51 11:17 05:09 WBC 4.6 RBC 4.36 Hgb 11.1 L Hct 36.2 L MCV 83.0 MCH 25.5 L MCHC 30.7 L RDW 15.5 H Plt Count 203 MPV 10.7 H Sodium Potassium Chloride Carbon Dioxide Anion Gap BUN Creatinine Estim Creat Clear Calc Estimated GFR Glucose Calcium Magnesium Total Bilirubin AST ALT Alkaline Phosphatase Total Protein Albumin Triglycerides Lipase 5199 H SARS-CoV-2 RNA (RT-PCR) Negative 01/07/22 05:09 WBC RBC Hgb Hct MCV MCH MCHC RDW Plt Count MPV Sodium 139 Potassium 4.0 Chloride 105 Carbon Dioxide 28 Anion Gap 6 L BUN 8 Creatinine 1.00 Estim Creat Clear Calc 85 Estimated GFR > 60 Glucose 94 Calcium 8.6 Magnesium 2.1 Total Bilirubin 0.7 AST 30 ALT 37 H Alkaline Phosphatase 126 Total Protein 7.0 Albumin 3.8 Triglycerides 52 Lipase 243 SARS-CoV-2 RNA (RT-PCR) Quality VTE Prophylaxis VTE prophylaxis: mechanical ordered
--- NOTE | 2022-01-07 10:28 | WPDHPUPDATE1 ---
History and Physical Update Update Date/Time: 01/07/22 10:28 History and Physical has been reviewed, including an updated exam of the patient. There are NO changes in the patient's condition. Risks, benefits, and alternatives have been discussed and questions answered. Patient agrees to proceed with procedure.
--- NOTE | 2022-01-07 10:30 | PC.NURSE ---
To OR per bed. SBAR on chart.
[2022-01-07] MEDS: ACETAMINOPHEN 500 MG TABLET 1000 MG PO (11:02)
[2022-01-07] MEDS: KETOROLAC 15 MG/ML VIAL (*BKC) IV PUSH (11:06)
[2022-01-07] MEDS: LACTATED RINGERS 1,000 ML 30 ML IV CONT ×2 (11:12→14:31)
--- NOTE | 2022-01-07 11:21 | WPDANESEPPF ---
Anes - Initial Pre Proc Eval Procedure: Operation Date: 01/07/22 12:00 Proposed Procedures p Laparoscopic Cholecystectomy; Possible Intraoperative Cholangiogram; Possible Open; Possible Primary Umbilical Hernia Repair - Shaun Camarena MD Date/Time: 01/07/22 11:21 Surgeon: Mateo Cruz MD Pre Op Diagnosis: Pancreatitis Patient Data Age: 41 Gender: F Height: 1.73 m Weight: 106.5 kg Last Vital Signs Temp 36.6 C 01/07/22 10:50 Pulse 65 01/07/22 10:50 Resp 16 01/07/22 10:50 BP 120/66 01/07/22 10:50 Pulse Ox 99 01/07/22 10:50 O2 Del Method Room Air 01/07/22 10:50 Allergies Allergy/AdvReac Type Severity Reaction Status Date / Time metronidazole Allergy Mild RASH Verified 01/06/22 09:45 Home Medications Medication Instructions Recorded Confirmed Type albuterol sulfate 90 mcg/actuation 2 puff inhalation Q4H PRN 09/29/21 01/06/22 History aerosol inhaler Shortness Of Breath famotidine 20 mg tablet (Pepcid) 20 mg PO BID PRN Indigestion 09/29/21 01/06/22 History ferrous sulfate 142 mg (45 mg 142 mg PO BID 09/29/21 01/06/22 History iron) tablet,extended release (Slow Fe) vit no.95-ferrous 1 tablet PO DAILY 09/29/21 01/06/22 History fumarate 28 mg-folic acid 800 mcg tablet () Laboratory Tests 01/06/22 01/07/22 01/07/22 11:17 05:09 05:09 WBC 4.6 K/mm3 K/mm3 (4.5-10.0) RBC 4.36 M/mm3 M/mm3 (4.2-5.4) Hgb 11.1 g/dL L g/dL (12.0-15.0) Hct 36.2 % L % (37.0-47.0) MCV 83.0 fl fl (80-100) MCH 25.5 pg L pg (26-34) MCHC 30.7 g/dl L g/dl (32-36) RDW 15.5 % H % (11.5-14.5) Plt Count 203 k/mm3 k/mm3 (150-375) MPV 10.7 fl H fl (7.4-10.4) Sodium 139 mmol/L mmol/L (137-145) Potassium 4.0 mmol/L mmol/L (3.4-5.0) Chloride 105 mmol/L mmol/L (98-107) Carbon Dioxide 28 mmol/L mmol/L (22-30) Anion Gap 6 mmol/L L mmol/L (8-16) BUN 8 mg/dL mg/dL (7-17) Creatinine 1.00 mg/dL mg/dL (0.7-1.0) Estim Creat Clear Calc 85 ml/min ml/min Estimated GFR > 60 (59 - ) Glucose 94 mg/dL mg/dL (65-110) Calcium 8.6 mg/dL mg/dL (8.4-10.2) Magnesium 2.1 mg/dL mg/dL (1.6-2.3) Total Bilirubin 0.7 mg/dL mg/dL (0.2-1.3) AST 30 U/L U/L (14-36) ALT 37 U/L H U/L (6-35) Alkaline Phosphatase 126 U/L U/L (38-126) Total Protein 7.0 g/dL g/dL (6.3-8.2) Albumin 3.8 g/dL g/dL (3.5-5.1) Triglycerides 52 mg/dL mg/dL (<150) Lipase 5199 U/L H U/L 243 U/L U/L (23-300) (23-300) Patient hx anesthesia problems: none Family hx anesthesia problems: none Results Review: All pre-operative results and documents have been reviewed as part of the pre-operative evaluation. [facility] Past Medical History Medical History Anemia Anxiety Asthma Gastritis induced hypertension Surgical History Surgical History History of loop electrical excision procedure (LEEP) (2006) Family History Family History Father Hypertension Unknown Thyroid disease Grandparent Gallbladder disease Mother Gallbladder disease Social History Social History Social History: Surrogate medical decision maker: James Chacko, spouse. Code status: Full code. Smoking packs per day: 1 Smoking cigarettes per day: 20.0 Years smoked: 30 Smoking pack-years: 30.00 Smoking status: Former smoker Additional smoking assessment comments: Quit in 2018. Alcohol intake: former Substance use: never Living arrangements: with family Additional living
[2022-01-07] MEDS: ceFAZolin 2 GM/D5W 50 ML 2 GM/50 ML BAG IVPB (12:08)
[2022-01-07] MEDS: BUPIVACAINE/EPINEPHRINE 0.25% 50 ML VIAL 30 ML INFILTRATE (12:46)
--- NOTE | 2022-01-07 14:45 | W.PM.PROC2 ---
Procedure Note - Detailed Date of Procedure 01/07/22 Pre-op Diagnosis 1. Chronic cholecystitis with cholelithiasis 2. Recent Pancreatitis Post-op Diagnosis Same Procedure Performed 1. Laparoscopic Cholecystectomy 2. suture repair of small umbilical hernia Surgeon Shaun Camarena MD Personnel Consultant PATRICIA Harley.OR food and beverage assistant Anesthesia General Indications Patient presented to the hospital with pancreatitis. She was discovered to have gallstones on ultrasound and she did not have other reasons for pancreatitis. The cause this was discovered and her lipase dropped quickly laparoscopic cholecystectomy with intraoperative cholangiogram was offered. Patient wished to proceed and risks and benefits discussed see previous surgery consult. Findings Patient appeared to have a chronically inflamed gallbladder with some fibrosis in the area of the triangle of Calot. There was also small stones in the cystic duct right where we cut the duct. However, I was able to milk the stones back toward the gallbladder after dissecting the triangle of Calot. Therefore, I believe she is unlikely to pass more stones. Her liver function tests were normal this morning as was her lipase. Will only retest if she stays overnight or if she has recurrent symptoms of stone passage. Description of Procedure Patient was seen preoperatively in her hospital room and risks, benefits and alternatives confirmed. Patient was taken to the operating room and general anesthesia was induced. A time out was then preformed with the surgery team confirming patient and site of surgery. The abdomen was prepped and draped in the usual sterile fashion. Incision was made just below the umbilicus with an 15 blade knife. I placed 2 stay sutures of O- Vicryl on either side of the mid-line fascia Just below or at the edges of her 1 cm hernia defect at the umbilicus. We did lift the skin of the umbilicus toward the head some as we did the dissection. I was then able to slide in the Wylie cannula through the fascial defect into the peritoneum. The 20 cc balloon was insufflated pulled up against the underside of the abdominal wall and the all of slit down. This was secured and then the 2 stay sutures secured to the olive. CO2 gas was connected to the Wylie cannula. First under low flow and then under high flow the abdomen was insufflated with carbon dioxide never exceeding a pressure of 14. Three 5 mm trocars were then introduced under direct vision. The following trocars were introduced under direct vision: a 5 mm in the epigastrium and two 5 mm trocars along the right costal margin laterally in the subcostal area. There were significant omental adhesions to the underside of the gallbladder. These were taken down with blunt and sharp dissection using some Bovie cautery for hemostasis. We were able to dissect this completely away from the neck of the gallbladder. I then carefully used the L-shaped cautery and the [place] dissector to dissect out the triangle of Calot. I then was able to dissect out both the cystic duct and cystic artery and identify a window of safety. The gall bladder was grasped and the cystic duct and artery were dissected free and clipped with an 5 mm endo-clip silk spreader. The cystic duct and artery were clipped with use of 2 clips on the patient's side 1 on the gallbladder side utilizing a 5 mm endoclip-silk spreader. The cystic duct was then transected. The cystic artery was also transected at this point. The gall bladder was removed using electrocautery and then removed from the abdomen using a large 10 mm grasper via the umbilical incision. Gallbladder was fairly small and pliable and came right up through the fascial defect. Upon removal in turning the gallbladder upside down we carefully palpated it and very small tiny stones were able to be palpated within the gallbladder itself. The trocars were removed visualizing hemostasis and the remaining gas evacuated. The large trocar
[2022-01-07] MEDS: ONDANSETRON INJ 4 MG/2 ML VIAL IV PUSH (15:01)
--- NOTE | 2022-01-07 17:54 | PM.DS ---
DS: Admitting Diagnosis Discharge Date 01/07/22 Admitting Diagnosis Pancreatitis DS: Discharge Diagnosis Discharge Diagnosis (1) Acute gallstone pancreatitis: Code(s): K85.10 - Biliary acute pancreatitis without necrosis or infection Status: Acute Assessment and Plan: Right upper quadrant ultrasound showed cholelithiasis with no evidence of cholecystitis or bile duct dilatation. Initial lipase 48009-->5199-->243 this morning. Patient likely had gallstone pancreatitis and passed the stone. This morning patient denied having any symptoms and said she felt great. Patient underwent laparoscopic cholecystectomy today. (2) Transaminitis: Code(s): R74.01 - Elevation of levels of liver transaminase levels Status: Acute Assessment and Plan: Due to gallstone pancreatitis. Patient passed the stone. Liver enzymes have largely normalized. Patient will need to follow up outpatient with PCP. (3) Cholelithiasis: Code(s): K80.20 - Calculus of gallbladder without cholecystitis without obstruction Status: Acute Assessment and Plan: Had laparoscopic cholecystectomy today. (4) Umbilical hernia without obstruction and without gangrene: Code(s): K42.9 - Umbilical hernia without obstruction or gangrene Status: Acute Assessment and Plan: Asymptomatic. No signs of strangulation or incarceration. (5) Mother currently breast-feeding: Code(s): Z39.1 - Encounter for care and examination of lactating mother Status: Acute Assessment and Plan: Patient is 4 weeks . (6) Acute pancreatitis: Code(s): K85.90 - Acute pancreatitis without necrosis or infection, unspecified Status: Acute Assessment and Plan: This has resolved. DS: Summary Hospital Course Reason for hospitalization: pancreatitis Hospital Course: 41F with a past medical history of anemia, anxiety, asthma and induced hypertension who is 4 weeks who presented to the emergency department for abdominal pain and was found to have pancreatitis. [place] [address]. CT abdomen pelvis showed a contacted gallbladder with gallbladder wall thickening. Symptoms were resolved by the time she was seen by the hospitalist in the emergency department. Lipase trended down quickly and was normalized by the next morning. Patient was taken to the operating room for a laparoscopic cholecystectomy that morning. Patient was discharged to home. Patient was anxious to go home as she was her new infant. Time Spent with Patient Time attestation: Total time spent providing and/or coordinating discharge services: Exam Narrative: GENERAL: NAD, cooperative HEENT: Normocephalic, atraumatic, anicteric NECK: Supple CV: Normal S1, S2, RRR, No MRG RESP: CTAB, Normal work of breathing. Abdomen: Soft, non-tender, non-distended, +BS EXTREMITIES: Warm and well perfused, no clubbing, cyanosis, or edema. SKIN: warm, dry and intact. NEURO: CN 2-12 grossly intact. DS: Data Data Completed and Pending Pending studies at discharge: Pending at discharge 01/07/22 12:47 Surgical [PTH] Routine Surgical [PTH] Routine Labs on day of discharge: Labs from last 24 hours 01/07/22 01/07/22 05:09 05:09 WBC 4.6 RBC 4.36 Hgb 11.1 L Hct 36.2 L MCV 83.0 MCH 25.5 L MCHC 30.7 L RDW 15.5 H Plt Count 203 MPV 10.7 H Sodium 139 Potassium 4.0 Chloride 105 Carbon Dioxide 28 Anion Gap 6 L BUN 8 Creatinine 1.00 Estim Creat Clear Calc 85 Estimated GFR > 60 Glucose 94 Calcium 8.6 Magnesium 2.1 Total Bilirubin 0.7 AST 30 ALT 37 H Alkaline Phosphatase 126 Total Protein 7.0 Albumin 3.8 Triglycerides 52 Lipase 243 Laboratory Tests 01/06/22 01/06/22 01/06/22 02:40 02:40 02:51 WBC 7.6 RBC 4.74 Hgb 12.3 D Hct 38.4 MCV 81.0 MCH 25.9 L MCHC 32.0
--- NOTE | 2022-01-08 10:58 | WPDANESPN ---
Anes - Prog Note Post-Op Date/Time: 01/08/22 10:58 Cardiovascular status: normal Respiratory status: normal Airway patency: baseline Mental status: baseline Post-Op hydration status: normal Vital Signs: Last Vital Signs Temp 36.4 C L 01/07/22 17:47 Pulse 70 01/07/22 17:47 Resp 16 01/07/22 17:47 BP 112/62 01/07/22 17:47 Pulse Ox 98 01/07/22 17:47 O2 Del Method Room Air 01/07/22 15:45 O2 Flow Rate 10 01/07/22 14:45 Pain Score (VAS): 210 I/O: Intake & Output 01/07/22 01/08/22 01/08/22 23:59 07:59 15:59 Intake Total 1909 Balance 0 Laboratory Tests 01/07/22 05:09 01/07/22 05:09 Microbiology 01/06/22 03:24 Urine-Clean Catch Urine Culture - Final Post-procedural complaints: none Patient Feedback: Patient satisfied with anesthetic care.
== END 2022-01-07 18:40 | disposition home or self-care (01) ==
LOC: ANHED 07:50 → ANH3MEDSUR 08:59
PROVIDERS: Nurse Practitioner Family; Surgery; Admitting Provider Chiropractor; Emergency Provider Emergency Medicine; PCP Nurse Practitioner Family; Visit Provider Family Medicine
PROC: 0FT44ZZ Resection of Gallbladder, Percutaneous Endoscopic Approach (ICD-10-PCS; CPT 47562; principal; 2022-01-07 12:00)
DX: K85.10 Biliary acute pancreatitis without necrosis or infection (principal); R74.01 Elevation of levels of liver transaminase levels; K80.10 Calculus of gallbladder with chronic cholecystitis without obstruction; K82.8 Other specified diseases of gallbladder; K80.20 Calculus of gallbladder without cholecystitis without obstruction; K42.9 Umbilical hernia without obstruction or gangrene; D64.9 Anemia, unspecified; F41.9 Anxiety disorder, unspecified; J45.909 Unspecified asthma, uncomplicated; Z20.822 Contact with and (suspected) exposure to COVID-19; Z87.891 Personal history of nicotine dependence; Z84.89 Family history of other specified conditions; Z82.49 Family history of ischemic heart disease and other diseases of the circulatory system; Z79.82 Long term (current) use of aspirin; Z79.51 Long term (current) use of inhaled steroids; Z79.899 Other long term (current) drug therapy
CPT/HCPCS: 47563; 36415; 74177; 76705; 80053; 81001; 81025; 83690; 83735; 84478; 85025; 85027; 87086; 87088; 88302; 88304; 96361; 96365; 96374; 96375; 99285; A9270; C9803; G0378; G0379; J0690; J1100; J1170; J1885; J2250; J2405; J2704; J2710; J3010; J7030; J7120; Q9966; Q9967; U0003; U0005

== ENCOUNTER 2024-03-09 18:13 | Emergency (ER) | payer OTHER, SELFPAY ==
[2024-03-09 18:31] VITALS: PULSE 92; RESP 22; O2SAT 100
--- NOTE | 2024-03-09 18:32 | ED.ALLEREA ---
HPI - Allergic Reaction General Chief complaint: Allergic Reaction Stated complaint: allergic reaction History of Present Illness HPI narrative: 43-year-old female presenting emergency department for evaluation for an anaphylactic reaction. Patient denies any new medications foods perfumes or detergents. Patient states that she began having tingling of her mouth and noticed itching of her hands. Patient states that she then began having hives and started developing some lightheaded dizziness and abdominal cramping. Patient called 911. Patient was treated with dexamethasone and IM epi and route. Upon arrival emergency department patient states she did feel improved. Related Data Home Medications Medication Instructions Recorded Confirmed albuterol sulfate 90 mcg/actuation 2 puff inhalation Q4H PRN 09/29/21 01/31/22 aerosol inhaler Shortness Of Breath famotidine 20 mg tablet (Pepcid) 20 mg PO BID PRN Indigestion 09/29/21 01/31/22 ferrous sulfate 142 mg (45 mg 142 mg PO BID 09/29/21 01/31/22 iron) tablet,extended release (Slow Fe) vit no.95-ferrous 1 tablet PO DAILY 09/29/21 01/31/22 fumarate 28 mg-folic acid 800 mcg tablet () Allergies Allergy/AdvReac Type Severity Reaction Status Date / Time metronidazole Allergy Mild RASH Verified 01/26/22 09:14 Review of Systems Review of Systems: All systems reviewed & are unremarkable except as noted in HPI and below PMFSH Past Medical History Medical History Anemia Anxiety Asthma Gastritis induced hypertension Surgical History Surgical History History of loop electrical excision procedure (LEEP) (2006) Hx laparoscopic cholecystectomy 01/07/22 Family History Family History Father Hypertension Unknown Thyroid disease Grandparent Gallbladder disease Mother Gallbladder disease Social History Social History Social History: Surrogate medical decision maker: James Chacko, spouse. Code status: Full code. Smoking packs per day: 1 Smoking cigarettes per day: 20.0 Years smoked: 30 Smoking pack-years: 30.00 Smoking status: Former smoker Additional smoking assessment comments: Quit in 2018. Alcohol intake: former Substance use: never Living arrangements: with family Additional living arrangements comments: Lives with her and 4 children. 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 Spiritual care concerns: No (Congregational) Exam Narrative: APPEARANCE: Well appearing, no pain, no distress, well-nourished. HEAD: normocephalic, atraumatic. EYES: PERRLA/EOMI, conjunctivae clear. NOSE: Normal no drainage EARS:TMS clear with good light reflex. THROAT: Pharynx clear, no exudate. NECK: Supple. No adenopathy, no masses. RESPIRATORY: Airway patent, respirations nonlabored. Clear to auscultation bilaterally, no rales, rhonchi, wheezing. CARDIOVASCULAR: Regular rate and rhythm without murmurs rubs or gallops. ABDOMINAL: Soft, nontender, nondistended, normal bowel sounds MUSCULOSKELETAL: Moves all extremities. Strength/ROM intact, No edema, No calf tenderness. NEURO: Alert. Cranial nerves II through XII intact. Good gait. Good coordination SKIN: Warm, dry. Normal Color Course Vital Signs Vital signs: Vital Signs Pulse Rate 92 03/09/24 18:31 Respiratory Rate 22 H 03/09/24 18:31 Pulse Oximetry 100 03/09/24 18:31 Oxygen Delivery Room Air 03/09/24 18:31 Temperature 97.7 F 03/09/24 19:02 Pulse Rate 100 03/09/24 19:56 Respiratory Rate 19 03/09/24 19:56 Blood Pressure 110/65 03/09/24 19:56 Pulse Oximetry 100 03/09/24 19:56 Oxygen Delivery Room Air 03/09/24 19:01 MDM - Allergic Reaction
[2024-03-09] MEDS: FAMOTIDINE 20 MG/2 ML VIAL IV PUSH (18:44)
[2024-03-09] MEDS: SODIUM CHLORIDE 0.9% IV 1,000 ML 999 ML IV CONT (18:44)
[2024-03-09 19:01] VITALS: O2SAT 100
[2024-03-09 19:02] VITALS: BP 97/70; PULSE 101; RESP 16; TEMP 36.5; O2SAT 100
[2024-03-09 19:18] LABS: Basophils Percent Auto 0.3 % (0.2-1.2); Eosinophils Absolute Auto 0.1 K/mm3 (0-0.3); Eosinophils Percent Auto 0.8 % (0-4.4); Hematocrit 40.1 % (37.0-47.0); Hemoglobin 13.2 g/dL (12.0-15.0); Immature Granulocyte Percent A 0.6 % (0-0.5); Lymphocytes Absolute Auto 2.95 K/mm3 (0.9-3.2); Lymphocytes Percent Auto 18.8 % (18.3-44.2); Mean Corpuscular HGB Conc 32.9 g/dl (32-36); Mean Corpuscular Hemoglobin 29.1 pg (26-34); Mean Corpuscular Volume 88.5 fl (80-100); Monocytes Absolute Auto 0.3 K/mm3 (0.1-0.6); Monocytes Percent Auto 2.1 % (2.6-8.5); Neutrophils Absolute Auto 12.1 K/mm3 (1.3-6.7); Neutrophils Percent Auto 77.4 % (45.5-73.1); Platelet Count Result 306 k/mm3 (150-375); Red Blood Count 4.53 M/mm3 (4.2-5.4); White Blood Count 15.7 K/mm3 (4.5-10.0)
[2024-03-09 19:32] LABS: Alanine Aminotransferase 21 U/L (6-35); Albumin Level 3.9 g/dL (3.5-5.1); Alkaline Phosphatase 69 U/L (38-126); Anion Gap 10 mmol/L (4-12); Aspartate Amino Transferase 28 U/L (14-36); Bilirubin,Total 0.7 mg/dL (0.2-1.3); Blood Urea Nitrogen 11 mg/dL (7-17); Calcium 8.5 mg/dL (8.4-10.2); Carbon Dioxide 20 mmol/L (22-30); Chloride 104 mmol/L (98-107); Estimated CRCL calculation 81 ml/min; Estimated Glomerular Filt Rate > 60; Glucose 272 mg/dL (65-110); Potassium 2.8 mmol/L (3.4-5.0); Sodium 134 mmol/L (137-145)
[2024-03-09] MEDS: POTASSIUM CHLORIDE 20 MEQ PACKET (FOR LIQUID) 40 MEQ PO (19:54)
[2024-03-09 19:56] VITALS: BP 110/65; PULSE 100; RESP 19; O2SAT 100
== END 2024-03-09 21:43 | disposition home or self-care (01) ==
PROVIDERS: Emergency Provider Emergency Medicine; PCP Nurse Practitioner Family
DX: T78.40XA Allergy, unspecified, initial encounter (principal); J45.909 Unspecified asthma, uncomplicated; Z86.2 Personal history of diseases of the blood and blood-forming organs and certain disorders involving the immune mechanism; Z87.891 Personal history of nicotine dependence; X58.XXXA Exposure to other specified factors, initial encounter
CPT/HCPCS: 36415; 80053; 85025; 96361; 96374; 99284; A9270; J7030

== ENCOUNTER 2024-03-16 14:50 | Emergency (ER) | payer OTHER, SELFPAY ==
[2024-03-16] VITALS (39 sets, daily range): BP systolic 99–156; BP diastolic 59–111; PULSE 78–97; RESP 12–22; TEMP 36.8; O2SAT 97–100
[2024-03-16] MEDS: FAMOTIDINE 20 MG/2 ML VIAL 40 MG IV PUSH (15:11)
--- NOTE | 2024-03-16 16:13 | ED.ALLEREA ---
HPI - Allergic Reaction General Chief complaint: Allergic Reaction Stated complaint: allergic reaction Source: patient and EMS Mode of arrival: EMS Limitations: no limitations History of Present Illness HPI narrative: This is a 43-year-old female, with history of anaphylactic reaction approximately 2 weeks ago who is brought in by EMS from a football field, with difficulty breathing, lip swelling, tightness in the throat and urticaria. The patient states she was at the same field which she had similar symptoms 2 weeks ago. She states she touched a bathroom door but had no other known contact point, when she developed her symptoms described above. She states she gave herself 20.3 mg epinephrine autoinjector injections approximately 30 minutes prior to arrival. On arrival to the scene by EMS, she was given albuterol nebs, 10 mg of Decadron, 50 mg of Benadryl IV and IV fluids. EMS reports the patient demonstrated wheezing and had lip swelling on initial assessment that has since improved. EMS reports the patient's vital signs were within normal limits. The patient has no other complaints at this time. Related Data Home Medications Medication Instructions Recorded Confirmed albuterol sulfate 90 mcg/actuation 2 puff inhalation Q4H PRN 09/29/21 01/31/22 aerosol inhaler Shortness Of Breath ferrous sulfate 142 mg (45 mg 142 mg PO BID 09/29/21 01/31/22 iron) tablet,extended release (Slow Fe) vit no.95-ferrous 1 tablet PO DAILY 09/29/21 01/31/22 fumarate 28 mg-folic acid 800 mcg tablet () Allergies Allergy/AdvReac Type Severity Reaction Status Date / Time metronidazole Allergy Mild RASH Verified 03/16/24 15:05 Review of Systems Review of Systems: Measure period ongoing now All systems reviewed & are unremarkable except as noted in HPI and below PMFSH Past Medical History Medical History Anemia Anxiety Asthma Gastritis induced hypertension Surgical History Surgical History History of loop electrical excision procedure (LEEP) (2006) Hx laparoscopic cholecystectomy 01/07/22 Family History Family History Father Hypertension Unknown Thyroid disease Grandparent Gallbladder disease Mother Gallbladder disease Social History Social History Social History: Surrogate medical decision maker: James Chacko, spouse. Code status: Full code. Smoking packs per day: 1 Smoking cigarettes per day: 20.0 Years smoked: 30 Smoking pack-years: 30.00 Smoking status: Former smoker Additional smoking assessment comments: Quit in 2018. Alcohol intake: former Substance use: never Living arrangements: with family Additional living arrangements comments: Lives with her and 4 children. 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 Spiritual care concerns: No (Buddhism) Exam Narrative: GENERAL: Well-developed, well-nourished, and in no acute distress. HEAD: Normocephalic, atraumatic. EYES: PERRLA and EOMI. ENT: Nares clear, no rhinorrhea or epistaxis. Mucous membranes moist. Oropharynx without tonsillar hypertrophy exudate or other lesions. NECK: Supple. No stridor CHEST: Clear to auscultation. No respiratory distress. No wheezes rales or rhonchi HEART: Regular rate and rhythm. No murmur heard. Normal peripheral pulses. ABDOMEN: Soft, nontender, nondistended, normal active bowel sounds. EXTREMITIES: Normal range of motion. No edema. SKIN: Urticarial rash noted to the bilateral medial thighs. Skin otherwise warm, dry, no rash. NEURO: Alert and oriented x3. No focal deficit. Moving all 4 limbs spontaneously PSYCH: Normal mood and affect. Course Course Emergency Course: 16:13
== END 2024-03-16 19:06 | disposition home or self-care (01) ==
PROVIDERS: Emergency Provider Preventive Medicine Aerospace Medicine; PCP Nurse Practitioner Family
DX: T78.2XXA Anaphylactic shock, unspecified, initial encounter (principal); L50.9 Urticaria, unspecified; J45.909 Unspecified asthma, uncomplicated; Z79.51 Long term (current) use of inhaled steroids; Z87.891 Personal history of nicotine dependence
CPT/HCPCS: 96374; 99284

== ENCOUNTER 2024-04-13 23:04 | Emergency (ER) | payer OTHER, SELFPAY ==
[2024-04-13 23:07] VITALS: BP 129/66; PULSE 92; RESP 18; TEMP 36.7; O2SAT 98
== END 2024-04-14 00:33 | disposition left against medical advice (07) ==
LOC: ANHED 04-14 00:31
PROVIDERS: PCP Nurse Practitioner Family
DX: R51.9 Headache, unspecified (principal)
CPT/HCPCS: 99199

== ENCOUNTER 2024-05-10 23:02 | Emergency (ER) | payer OTHER, SELFPAY ==
[2024-05-10] VITALS (7 sets, daily range): BP systolic 102–113; BP diastolic 68–81; PULSE 83–100; RESP 12–23; TEMP 36.6; O2SAT 97–100
--- NOTE | 2024-05-10 23:05 | ECG_ITS ---
Test Date: 2024-05-10 23:09:52 Measurements Intervals [place] Rate: 86 P: 60 OH: 124 QRS: 79 QRSD: 106 T: 63 QT: 352 QTc: 422 Interpretive Statements SINUS RHYTHM INCOMPLETE RIGHT BUNDLE BRANCH BLOCK BASELINE ARTIFACT- I, III, AVR, AVL, AVF BORDERLINE ECG No previous ECG available for comparison Electronically Signed On 05-11-2024 06:26:55 REPORT SPECIALIST by Obdulio Bateman D.O.
[2024-05-10] MEDS: methylPREDNISolone SOD SUCC 125 MG VIAL IV PUSH (23:27)
[2024-05-10] MEDS: FAMOTIDINE 20 MG/2 ML VIAL IV PUSH (23:27)
--- NOTE | 2024-05-10 23:31 | ED.GENADULT ---
HPI - General Adult General Chief complaint: Allergic Reaction Stated complaint: allergic reaction Time Seen by Provider: 05/10/24 23:15 History of Present Illness HPI narrative: patient 43-year-old female who presents emergency department chief complaint of allergic reaction. Patient reports she has had prior anaphylactic reactions given a prescription for epinephrine. The patient reports that today she started itching and felt like his over throat was throat closing up the patient states that she used her EpiPen twice reports that she is feeling a lot better and was given Benadryl by EMS prior to arrival. Related Data Home Medications Medication Instructions Recorded Confirmed diphenhydramine HCl 25 mg capsule 25 mg PO QHS PRN 03/21/24 04/24/24 (Benadryl) Allergies Allergy/AdvReac Type Severity Reaction Status Date / Time metronidazole Allergy Mild RASH Verified 04/24/24 10:35 Review of Systems Review of Systems: A 10 system review of systems was completed on the patient and is negative except for what is stated in the HPI. Nursing and ancillary documentation was reviewed. [facility] Past Medical History Medical History Allergies Anemia Anxiety Asthma Heart murmur born with heart murmur per patient Migraines Surgical History Surgical History History of loop electrical excision procedure (LEEP) (2006) Hx laparoscopic cholecystectomy 01/07/22 Family History Family History Father Hypertension Unknown Thyroid disease Grandparent Gallbladder disease Hypertension Mother Gallbladder disease Social History Social History Social History: Surrogate medical decision maker: James Chacko, spouse. Code status: Full code. 04/23/24 very confident with medical forms Smoking packs per day: 1 Smoking cigarettes per day: 20.0 Years smoked: 30 Smoking pack-years: 30.00 Smoking status: Former smoker Additional smoking assessment comments: Quit in 2018. Alcohol intake: former Substance use: never Do You Feel Safe in your Home?: Yes Lack of Transportation: No Lack of Food: Never True Current Housing: I Have Housing Concerned About Future Housing: No Difficulty Paying Gas/Electric Bills: No Difficulty Paying for Meds: No Currently Unemployed: No Education: Bachelor's Degree Difficulty w/ Childcare or Family Care: No Living arrangements: with family Additional living arrangements comments: Lives with her and 4 children. 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 Gender identity (if verbalized by the patient): Female Spiritual care concerns: No (Rastafarian) Agree to blood products: Yes Exam Narrative: GENERAL: Well-appearing, well-nourished, and in no acute distress. HEAD: Normocephalic, atraumatic. EYES: PERRLA and EOMI. ENT: Nares clear, no rhinorrhea or epistaxis. Mucous membranes moist. NECK: Supple. CHEST: Clear to auscultation. No respiratory distress. HEART: Regular rate and rhythm. No murmur heard. Normal peripheral pulses. ABDOMEN: Soft, nontender, nondistended, normal active bowel sounds. EXTREMITIES: Normal range of motion. No edema. SKIN: Warm, dry, no rash. NEURO: No focal deficits. Alert and oriented x3. PSYCH: Normal mood and affect. Course Vital Signs Vital signs: Vital Signs Pulse Oximetry 100 05/10/24 23:04 Temperature 36.6 C 05/10/24 23:07 Pulse Rate 97 05/10/24 23:07 Respiratory Rate 19 05/10/24 23:07 Blood Pressure 113/79 05/10/24 23:07 Pulse Oximetry 100 05/10/24 23:07 Oxygen Delivery Room Air 05/10/24 23:07 Medical Decision Making Vital Signs Vital Signs: Vital Signs Pulse Oximetry 100 05/10/24 23:04 Temperature 36.6 C 05/10/24 23:07 Pulse Rate 97 05/10/24 23:07 Respiratory Rate 19 05/10/24 23:07 Blood Pressure 113/79 05/10/24 23:07 Pulse Oximetry 100 05/10/24 23:07 Oxygen Delivery Room Air 05/10/24 23:07 Discharge Plan Discharge Clinical Impression: Allergic reaction Patient Disposition: Home, Self-Care Condition: Stable Instructions: General Allergic Reaction (ED), Antibiotic Form Prescriptions: New epinephrine [EpiPen 2-Abelardo] 0.3 mg/0.3 mL auto-injector 0.3 mg IM Q5-15M PRN (Reason: anaphylaxis) Qty: 2 0RF Rx Instructions: do not exceed 3 doses per episode prednisone 20 mg tablet 40 mg PO DAILY 5 Days Qty: 10 0RF No Action diphenhydramine HCl [Benadryl] 25 mg capsule 25 mg PO QHS PRN famotidine [Zantac-360 (famotidine)] 20 mg tablet 20 mg PO DAILY Qty: 90 1RF epinephrine [EpiPen 2-Abelardo] 0.3 mg/0.3 mL auto-injector 0.3 mg IM ONCE Qty: 2 0RF Rx Instructions: as a single dose; may repeat once Follow-up/Referrals: Lori Smith APRN [Primary Care Provider] -
[2024-05-11] VITALS (24 sets, daily range): BP systolic 102–113; BP diastolic 68–90; PULSE 83–104; RESP 14–29; O2SAT 97–100
== END 2024-05-11 03:22 | disposition home or self-care (01) ==
PROVIDERS: Emergency Provider Emergency Medicine; PCP Nurse Practitioner Family
DX: T78.40XA Allergy, unspecified, initial encounter (principal); J45.909 Unspecified asthma, uncomplicated; Z86.2 Personal history of diseases of the blood and blood-forming organs and certain disorders involving the immune mechanism; Z87.891 Personal history of nicotine dependence; Z90.49 Acquired absence of other specified parts of digestive tract; X58.XXXA Exposure to other specified factors, initial encounter; I45.10 Unspecified right bundle-branch block
CPT/HCPCS: 93005; 96374; 96375; 99284; J2919

== ENCOUNTER 2024-07-11 18:34 | Emergency (ER) | payer OTHER, SELFPAY ==
[2024-07-11 18:49] VITALS: BP 111/86; PULSE 85; RESP 16; TEMP 37.3; O2SAT 100
--- NOTE | 2024-07-11 19:07 | ED_ITS ---
HPI - Abdominal Pain General Chief Complaint: Abdominal Pain Stated Complaint: Nausea/Stomach Pain Time Seen by Provider: 07/11/24 19:07 Source: patient, RN notes reviewed and old records reviewed Mode of arrival: ambulatory Limitations: no limitations History of Present Illness HPI narrative: 44-year-old female presents to the [facility] with complaints of nausea and stomach discomfort. Denies vomiting. Reports the discomfort more of as a cramping and not a significant pain. Patient reports that it started almost a week ago. Is on semaglutide. Has a history of pancreatitis. Patient denies that much pain as when she had pancreatitis. Patient is reporting that she is belching and is concerned because it smells like sulfur. Unable to reproduce pain on palpation Reports that she does have a appointment with her doctor that prescribes semaglutide. Will discuss it with them tomorrow night. Onset (ago): day(s) (4) Related Data Home Medications ?Medication ?Instructions ?Recorded ?Confirmed ?Last Taken ?Type diphenhydramine HCl 25 mg capsule 25 mg PO QHS PRN 03/21/24 04/24/24 Unknown History (Benadryl) cetirizine 10 mg tablet mg 07/11/24 Unknown History montelukast 10 mg tablet mg 07/11/24 Unknown History semaglutide (weight loss) 07/11/24 Unknown History Allergies Allergy/AdvReac Type Severity Reaction Status Date / Time metronidazole Allergy Mild RASH Verified 04/24/24 10:35 Review of Systems Review of Systems: All systems reviewed & are unremarkable except as noted in HPI and below Constitutional: Constitutional: Reports no additional constitutional complaints ENT: Reports system reviewed and no additional complaints, except as documented Cardiovascular: Cardiovascular: Reports no additional cardiovascular complaints, Denies chest pain and Denies dyspnea Respiratory: Respiratory: Reports no additional respiratory complaints, Denies chest congestion, Denies cough and Denies dyspnea Gastrointestinal: Gastrointestinal: Reports as per HPI, Reports abdominal pain and Reports belching Musculoskeletal: Musculoskeletal: Reports no additional musculoskeletal complaints Integumentary/Breasts: Skin/Breast: Reports system reviewed and no additional complaints, except as docu PMFSH Past Medical History Medical History Allergies Anemia Anxiety Asthma Heart murmur born with heart murmur per patient Migraines Surgical History Surgical History History of loop electrical excision procedure (LEEP) (2007) Hx laparoscopic cholecystectomy 01/07/22 Family History Family History Father Hypertension Unknown Thyroid disease Grandparent Gallbladder disease Hypertension Mother Gallbladder disease Social History Social History Social History: Surrogate medical decision maker: James Chacko, spouse. Code status: Full code. 04/23/24 very confident with medical forms Smoking packs per day: 1 Smoking cigarettes per day: 20.0 Years smoked: 30 Smoking pack-years: 30.00 Smoking status: Former smoker Additional smoking assessment comments: Quit in 2018. Alcohol intake: former Substance use: never Do You Feel Safe in your Home?: Yes Lack of Transportation: No Lack of Food: Never True Current Housing: I Have Housing Concerned About Future Housing: No Difficulty Paying Gas/Electric Bills: No Difficulty Paying for Meds: No Currently Unemployed: No Education: Bachelor's Degree Difficulty w/ Childcare or Family Care: No Living arrangements: with family Additional living arrangements comments: Lives with her and 4 children. 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 Gender identity (if verbalized by the patient): Female Spiritual care concerns: No (Voodoo) Agree to blood products: Yes Comments At the time of my signature, I reviewed and agree with the nursing past medical, surgical, social, and family history. There is no relevant family history pertinent to the patient complaint. Exam Const: General: cooperative, healthy appearing, comfortable, no acute distress , well developed, alert and well nourished Nutritional Appearance: well nourished Orientation/consciousness: patient oriented x3 Limitations: no limitations HENMT: Head: normal to inspection Eyes: General: appearance normal, both eyes and all related structures Alignment and Position: alignment normal Neck: Neck: normal visual inspection, full ROM, no lymphadenopathy and no meningeal signs Chest: Chest palpation & inspection: normal inspection of the chest Resp: Effort & Inspection: normal respiratory effort and able to speak in complete sentences Auscultation: clear to auscultation bilaterally, no crackles, no rales, no rhonchi and no wheezes Cardio: Rate: regular rate GI: GI Palp: No abdominal tenderness, Yes Soft to palpation and No Guarding due to palpation present (GI) Auscultation: normal bowel sounds Skin: General skin exam: normal color and no rashes or lesions noted Neuro: General: patient oriented x3, gait normal, moves all extremities and no meningeal signs Cognition (Neuro): normal cognition Speech: normal speech Gait exam (Neuro): Normal gait present Extrem: General: normal to inspection, full ROM, capillary refill normal and normal gait Psych: Appearance: grossly normal and well kempt Mental Status: mental status grossly normal Speech and movement: Normal speech and movement present and Clear speech present Affect: normal affect Attitude: cooperative Course Course Level of Care: Express Care Visit Vital Signs Vital signs: Vital Signs Temperature 99.2 F 07/11/24 18:49 Pulse Rate 85 07/11/24 18:49 Respiratory Rate 16 07/11/24 18:49 Blood Pressure 111/86 07/11/24 18:49 Pulse Oximetry 100 07/11/24 18:49 Temperature 99.2 F 07/11/24 18:49 Pulse Rate 85 07/11/24 18:49 Respiratory Rate 16 07/11/24 18:49 Blood Pressure 111/86 07/11/24 18:49 Pulse Oximetry 100 07/11/24 18:49 Reviewed MDM - Abdominal Pain MDM Narrative Medical decision making narrative: Patient sitting in exam room. Nontoxic, vitals stable. Patient is in no acute distress. Patient presents with epigastric discomfort and belching for 3-4 days. No acute findings noted on exam. Discussed in great detail concerns for acid reflux, side effect of semaglutide, pancreatitis. Patient reports that she has an appointment tomorrow night with the doctor that prescribes semaglutide will, will have further discussions with them and see if they can order labs. Patient is appropriate for outpatient treatment with close follow-up, discussed simple diet. Patient currently takes Pepcid twice daily Also discussed in great detail signs and symptoms to proceed to the emergency room which patient verbalized understand Discharge instructions reviewed with patient, as well as provided in writing per nursing staff. The instructions also include specific and strict return/GO TO THE ER as well as f/u information. All questions have been answered, and the patient deny any further questions with discharge and discharge plan. Some parts of this dictation were generated by voice recognition software and may contain typographical and/or grammatical inaccuracies. Differential Diagnosis Differential diagnosis: Likely abdominal pain, gastroenteritis, pancreatitis and small bowel obstruction Critical Care Time Critical Care Time Critical Care Time: No Discharge Plan Discharge Clinical Impression: Stomach cramps, generalized, Nausea without vomiting Patient Disposition: Home, Self-Care Condition: Stable Instructions: Antibiotic Form, Abdominal Pain (ED) Additional Instructions: Keep your diet very simple. Nothing fried, greasy, spicy or highly processed. Continue taking your Pepcid Be sure to mention this to your provider tomorrow at your appointment For new or worsening symptoms go directly to the emergency room Patient Language: Estonian Prescriptions: No Action cetirizine 10 mg tablet montelukast 10 mg tablet semaglutide (weight loss) diphenhydramine HCl [Benadryl] 25 mg capsule 25 mg PO QHS PRN famotidine [Zantac-360 (famotidine)] 20 mg tablet 20 mg PO DAILY Qty: 90 1RF epinephrine [EpiPen 2-Abelardo] 0.3 mg/0.3 mL auto-injector 0.3 mg IM ONCE Qty: 2 0RF Rx Instructions: as a single dose; may repeat once epinephrine [EpiPen 2-Abelardo] 0.3 mg/0.3 mL auto-injector 0.3 mg IM Q5-15M PRN (Reason: anaphylaxis) Qty: 2 0RF Rx Instructions: do not exceed 3 doses per episode omeprazole 20 mg tablet,delayed release (DR/EC) 20 mg PO DAILY Qty: 30 0RF Follow-up/Referrals: Lori Smith APRN [Primary Care Provider] - 2 Weeks ([facility] follow up ) Stand Alone Forms: Work/School Release IP Time of Disposition: 19:25
== END 2024-07-11 19:29 | disposition home or self-care (01) ==
PROVIDERS: Emergency Provider Nurse Practitioner; PCP Nurse Practitioner Family
DX: R10.9 Unspecified abdominal pain (principal); R11.0 Nausea; Z87.891 Personal history of nicotine dependence; J45.909 Unspecified asthma, uncomplicated; R01.1 Cardiac murmur, unspecified
CPT/HCPCS: 99211; G0463

== ENCOUNTER 2024-07-11 22:56 | Emergency (ER) | payer OTHER, SELFPAY ==
--- OUTSIDE RECORDS SUMMARY | 2024-07-11 22:58 | XMS_ITS | Clinical Summary ---
Author Organization [facility] Address [address] [place] [address] Care Team Providers Care Microsystems Engineer Name Role Phone Lori Smith APRN-CLINICAL NURSE REVIEWER Primary Care Provider Source Comments [facility],non-owned Affiliates and Associated Physician Practices is amultiple site organization consisting of ambulatory clinics and hospital sitesin [place], [place], [place] and [place]. This disclosure is being madepursuant to the Care Everywhere program and may not contain all information available regarding this patient. Last updated 18.[facility] Allergies No known active allergies Medications * Be aware that medications may not be up to date on this document. Alwaysverify current medications with the patient. Medication Sig Dispensed Refills Start Date End Date Status EPINEPHrine (Epipen) 0.3 MG/0.3ML auto-injector pen 03/17/2024 Active predniSONE (Deltasone) 20 MG tablet Take 2 (two) tablets by mouth once daily 05/11/2024 Active montelukast (Singulair) 10 MG tabletIndications:Ch ronic Urticaria Take 1 (one) tablet by mouth once daily Reasons: Chronic Hives 90 tablet 4 05/15/2024 Active famotidine (Pepcid) 20 MG tabletIndications:Ur ticaria Take 1 (one) tablet by mouth 2 times daily Reasons: Hives 180 tablet 4 05/15/2024 Active cetirizine (ZyrTEC) 10 MG tabletIndications:Ch ronic Urticaria Take 1 (one) tablet by mouth 2 times daily Reasons: Chronic Hives 90 tablet 4 05/15/2024 Active Active Problems Problem Noted Date Diagnosed Date 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 Mild intermittent asthma without complication Encounters Date Type Department Care Team Description 05/15/2024 11:00 AM CLEAN ROOM TECHNICIAN Office Visit [facility] - Allergy [address] [place] [phone] Artur Mckinley MD Idiopathic anaphylaxis, subsequent encounter (Primary Dx); Urticaria; Mild intermittent asthma without complication (HCC); Allergic rhinitis due to animal hair and dander 05/15/2024 Travel 05/14/2024 Travel 04/12/2024 9:55 AM CDT - 04/12/2024 11:59 PM CDT Hospital Encounter [facility] LAB OP DRAW STATION [address] [place] [address] Discharge Disposition: Home or Self Care 04/12/2024 9:00 AM CDT Office Visit [facility] - Allergy [address] [place] [phone] Artur Mckinley MD Anaphylaxis, subsequent encounter (Primary Dx); Urticaria; Mild intermittent asthma without complication (HCC); Allergic rhinitis due to animal hair and dander 04/12/2024 Travel from Last 3 Months Social History Tobacco Use Types Packs/Day Years Used Date Smoking Tobacco: Never Smokeless Tobacco: Never Alcohol Use Standard Drinks/Week Comments Never 0 (1 standard drink = 0.6 oz pur e alcohol) PHQ-2 Answer Date Recorded Patient Health Questionnaire-2 Score 0 04/12/2024 Sex and Gender Information Value Date Recorded Sex Assigned at Female 04/12/2024 6:00 PM CDT Gender Identity Female 04/12/2024 6:00 PM CDT Sexual Orientation Not on file Last Filed Vital Signs Vital Sign Reading Time Taken Comments Blood Pressure 107/72 05/15/2024 11:01 AM CLEAN ROOM TECHNICIAN Pulse 70 05/15/2024 11:01 AM CLEAN ROOM TECHNICIAN Temperature 36.4 ??C (97.5 ??F) 05/15/2024 1 1:01 AM CLEAN ROOM TECHNICIAN Respiratory Rate 18 05/15/2024 11:0 1 AM CLEAN ROOM TECHNICIAN Oxygen Saturation 98% 05/15/2024 11: 01 AM CLEAN ROOM TECHNICIAN Inhaled Oxygen Concentration - - Weight 93.8 kg (206 lb 12.8 oz) 024 11:01 AM CLEAN ROOM TECHNICIAN Height 172.7 cm (5' 8 ) 05/15/2024 11:0 1 AM CLEAN ROOM TECHNICIAN Body Mass Index 31.44 05/15/2024 11:01 AM CLEAN ROOM TECHNICIAN Plan of Treatment Upcoming Encounters Date Type Department Care Team (Late st Contact Info) Description 08/13/2024 11:00 AM CLEAN ROOM TECHNICIAN Office Visit [facility] - Allergy [address] [facility] [place] [phone] Artur Mckinley MD [address] [place] [phone] Health Maintenance Due Date Last Done Comments LIPID TESTING 1982 MAMMOGRAM 1982 HIV SCREENING 1997 HEPATITIS C SCREENING 05/08/2000 DTAP/TDAP/TD VACCINES (1 - Tdap) 2001 HEPATITIS B VACCINE (1 of 3 - 19+ 3-dose series) 2001 PNEUMOCOCCAL VACCINE (1 of 2 - PCV) 2001 COVID-19 VACCINE (1 - 2023-2 5 season) 2024 INFLUENZA VACCINE (#1) 2024 SCREENING FOR DIABETES 05/15/2024 DEPRESSION SCREENING 06/12/2024 04/12/2024 PAP SMEAR 03/10/2026 03/10/2023 ZOSTER VACCINE (1 of 2) 2032 HIB VACCINE Aged Out No longer eligi ble based on patient's age to complete this topic HPV VACCINE Aged Out No longer eligi ble based on patient's age to complete this topic MENINGOCOCCAL (Group B) VACCINE Aged Out No longer eligible based on patient's age to complete this topic MENINGOCOCCAL VACCINE Aged Out No robin servando eligible based on patient's age to complete this topic Procedures Procedure Name Priority Date/Time Associated Diagnosis Comments IMMUNOSCORE IGE INTERP Routine 04/12/2024 10:12 AM CDT Anaphylaxis, subsequent encounter LAB MISC TEST Routine 04/12/2024 10:12 AM CDT Anaphylaxis, subsequent encounter TRYPTASE Routine 04/12/2024 10:12 AM CDT Anaphylaxis, subsequent encounter IGE BLOOD Routine 04/12/2024 10:12 AM CDT Anaphylaxis, subsequent encounter ALLERGEN ALPHA GAL IGE Routine 04/12/2024 10:12 AM CDT Anaphylaxis, subsequent encounter from Last 3 Months Results * IMMUNOSCORE IGE INTERP (04/12/2024 10:12 AM CDT) [facility] Signature Immunocap Score See Note 4 3:30 PM CLEAN ROOM TECHNICIAN [facility] ([facility]) Comment: REFERENCE INTERVAL: Allergen, Interpretation Less than 0.10 kU/L......Class 0.....No significant level detected 0.10-0.34 kU/L...........Class 0/1...Clinical relevance undetermined 0.35-0.70 kU/L...........Class 1.....Low 0.71-3.50 kU/L...........Class 2.....Moderate 3.51-17.50 kU/L..........Class 3.....High 17.51-50.00 kU/L.........Class 4.....Very High 50.01-100.00 kU/L........Class 5.....Very High Greater than 100.00kU/L..Class 6.....Very High Allergen results of 0.10-0.34 kU/L are intended for specialist use as the clinical relevance is undetermined. Even though increasing ranges are reflective of increasing concentrations of allergen-specific IgE, these concentrations may not correlate with the degree of clinical response or skin testing results when challenged with a specific allergen. The correlation of allergy laboratory results with clinical history and in vivo reactivity to specific allergens is essential. A negative test may not rule out clinical allergy or even anaphylaxis. Performed By: [facility] [employer] [address] [place] [address] Adult Day Care Worker: Ed Rowell MD, PhD CLIA Number: [id number] Blood BLOOD SPECIMEN / Unknown Lab Venipuncture / Unknown 04/12/2024 10:12 AM CDT 04/12/2024 10:34 AM CDT Artur Mckinley MD LAB - SEROLOGY ORDER GAYLE Performing Organization Address City/[facility] Co de Phone Number [facility] ([facility]) [address] * ALLERGEN ALPHA GAL IGE (04/12/2024 10:12 AM CDT) Allergen Alpha Gal IgE <0.10 <=0.09 kU/L 04/14/2024 3:26 PM CLEAN ROOM TECHNICIAN [facility] ([facility]) Comment: INTERPRETIVE INFORMATION: Allergen, Food, Alpha-Gal, IgE Allergen results of 0.10-0.34 kU/L are intended for specialist use as the clinical relevance is undetermined. Even though increasing ranges are reflective of increasing concentrations of allergen-specific IgE, these concentrations may not correlate with the degree of clinical response or skin testing results when challenged with a specific allergen. The correlation of allergy laboratory results with clinical history and in vivo reactivity to specific allergens is essential. A negative test may not rule out clinical allergy or even anaphylaxis. Performed By: [employer] [address] [place] [address] Adult Day Care Worker: Ed Rowell MD, PhD CLIA Number: [id number] Blood BLOOD SPECIMEN / Unknown Lab Venipuncture / Unknown 04/12/2024 10:12 AM CDT 04/12/2024 10:34 AM CDT Artur Mckinley MD LAB - SEROLOGY ORDER GAYLE Performing Organization Address City/[facility]/ZIP Co de Phone Number [facility] ([facility]) [address] * LAB MISC TEST (04/12/2024 10:12 AM CDT) Test Name ALLERGEN WHEAT IGE W COMPONENT RFLXS 04/19/2024 6:36 AM CLEAN ROOM TECHNICIAN [facility] Test Result See Scanned Report 04/19/2024 6:36 AM CLEAN ROOM TECHNICIAN [facility] Comment Ref Lab [facility] 04/19/2024 6:36 AM CLEAN ROOM TECHNICIAN [facility] Blood BLOOD SPECIMEN / Unknown Lab Venipuncture / Unknown 04/12/2024 10:12 AM CDT 04/12/2024 10:34 AM CDT Artur Mckinley MD LAB SEND OUT Performing Organization Address [facility] [place] [address] * TRYPTASE (04/12/2024 10:12 AM CDT) Tryptase 4.6 <=10.9 ug/L 04/14/2024 4:16 PM CLEAN ROOM TECHNICIAN [facility] [employer] ([facility]) Blood BLOOD SPECIMEN / Unknown Lab Venipuncture / Unknown 04/12/2024 10:12 AM CDT 04/12/2024 10:34 AM CDT Artur Mckinley MD LAB - CHEMISTRY LINH EASON Performing Organization Address [facility] de Phone Number [facility] [employer] [facility]) [address] [place] [address] * IGE BLOOD (04/12/2024 10:12 AM CDT) Pathologist [facility] IgE Total 62 <=214 kU/L 04/14/2024 8:16 PM CLEAN ROOM TECHNICIAN [facility] [employer] ([facility]) Comment: REFERENCE INTERVAL: Immunoglobulin E, Serum Access complete set of age- and/or gender-specific reference intervals for this test in the [facility] Test Directory ([employer]). Performed By: [employer] [address] [place] [address] Adult Day Care Worker: Ed Rowell MD, PhD CLIA Number: [id number] Blood BLOOD SPECIMEN / Unknown Lab Venipuncture / Unknown 04/12/2024 10:12 AM CDT 04/12/2024 10:34 AM CDT Artur Mckinley MD LAB - CHEMISTRY LINH EASON Performing Organization Address [facility] de Phone Number [facility] [employer] ([facility]) [address] [place] [address] [facility] from Last 3 Months Care Teams Microsystems Engineer Relationship Specialty Start Date End Date Lori Smith, DRYWALL TAPER HELPER-CLINICAL NURSE REVIEWER [address] [place] [phone] PCP - General 12/15/21
--- OUTSIDE RECORDS SUMMARY | 2024-07-11 22:58 | XMS_ITS | Referral Summary ---
Author Organization [email or web address] Address [address] [place] [address] Care Team Providers Care Cotton Tier Name Role Phone Lori Smith Winston CARLIN-ELECTRICAL ENGINEERING TEACHER Primary Care Provider Source Comments [facility],non-owned Affiliates and Associated Physician Practices is amultiple site organization consisting of ambulatory clinics and hospital sitesin [place], [place], [place] and [place]. This disclosure is being madepursuant to the Care Everywhere program and may not contain all information available regarding this patient. Last updated 18.[facility] Encounters Date Type Department Care Team Description 05/15/2024 Travel 05/15/2024 11:00 AM MEDICAL SCREENER Office Visit [facility] - [facility] [address] [place] [phone] Artur Mckinley MD Idiopathic anaphylaxis, subsequent encounter (Primary Dx); Urticaria; Mild intermittent asthma without complication (HCC); Allergic rhinitis due to animal hair and dander 05/14/2024 Travel 04/12/2024 9:55 AM CDT - 04/12/2024 11:59 PM CDT Hospital Encounter [facility] LAB OP DRAW STATION [address] [place] [address] Discharge Disposition: Home or Self Care 04/12/2024 Travel 04/12/2024 9:00 AM CDT Office Visit [facility] - Allergy [address] [place] [phone] Artur Mckinley MD Anaphylaxis, subsequent encounter (Primary Dx); Urticaria; Mild intermittent asthma without complication (HCC); Allergic rhinitis due to animal hair and dander from Last 3 Months Allergies No known active allergies Medications * [...] anaphylaxis 05/15/2024 Mild intermittent asthma without complication Social History Tobacco Use Types Packs/Day Years [...] Comments Blood Pressure 107/72 05/15/2024 11:01 AM MEDICAL SCREENER Pulse 70 05/15/2024 11:01 AM MEDICAL SCREENER Temperature 36.4 ??C (97.5 ??F) 05/15/2024 1 1:01 AM MEDICAL SCREENER Respiratory Rate 18 05/15/2024 11:0 1 AM MEDICAL SCREENER Oxygen Saturation 98% 05/15/2024 11: 01 AM MEDICAL SCREENER Inhaled Oxygen Concentration - - Weight 93.8 kg (206 lb 12.8 oz) 024 11:01 AM MEDICAL SCREENER Height 172.7 cm (5' 8 ) 05/15/2024 11:0 1 AM MEDICAL SCREENER Body Mass Index 31.44 05/15/2024 11:01 AM MEDICAL SCREENER Plan of Treatment Upcoming Encounters Date Type Department Care Team (Late st Contact Info) Description 08/13/2024 11:00 AM MEDICAL SCREENER Office Visit [facility] - Allergy [address] [facility] [place] [phone] Artur Mckinley MD [address] [place] [phone] Procedures Procedure Name Priority Date/Time Associated Diagnosis [...] IMMUNOSCORE IGE INTERP (04/12/2024 10:12 AM CDT) Immunocap Score See Note 3:30 PM MEDICAL SCREENER [employer] [employer] ([facility]) Comment: REFERENCE INTERVAL: Allergen, Interpretation Less than [...] clinical allergy or even anaphylaxis. Performed By: [facility] [address] [place] [address] Fringe Knotter: Ed Rowell MD, PhD CLIA Number: [id number] Blood BLOOD SPECIMEN / Unknown Lab Venipuncture / Unknown 04/12/2024 10:12 AM CDT 04/12/2024 10:34 AM CDT Artur Mckinley MD LAB - SEROLOGY ORDER GAYLE [place] [facility]) [address] [place] [address], [facility] * ALLERGEN ALPHA GAL IGE (04/12/2024 10:12 AM CDT) Allergen Alpha Gal IgE <0.10 <=0.09 kU/L 04/14/2024 3:26 PM MEDICAL SCREENER [facility] ([facility]) Comment: INTERPRETIVE INFORMATION: Allergen, Food, Alpha-Gal, IgE [...] clinical allergy or even anaphylaxis. Performed By: [facility] [address] [place] [address] Fringe Knotter: Ed Rowell MD, PhD CLIA Number: [id number] Blood BLOOD SPECIMEN / Unknown Lab Venipuncture / Unknown 04/12/2024 10:12 AM CDT 04/12/2024 10:34 AM CDT Artur Mckinley MD LAB - SEROLOGY ORDER GAYLE Performing Organization Address [facility] Co de Phone Number [facility] [place] ([facility]) [address] [place] [address] * LAB MISC TEST (04/12/2024 10:12 AM CDT) Test Name ALLERGEN WHEAT IGE W COMPONENT RFLXS 04/19/2024 6:36 AM MEDICAL SCREENER [place] Test Result See Scanned Report 04/19/2024 6:36 AM MEDICAL SCREENER [facility] Comment Ref Lab [facility] 04/19/2024 6:36 AM MEDICAL SCREENER [place] Blood BLOOD SPECIMEN / Unknown Lab Venipuncture / Unknown 04/12/2024 10:12 AM CDT 04/12/2024 10:34 AM CDT Artur Mckinley MD LAB SEND OUT Performing Organization Address [facility] [place] [address] * TRYPTASE (04/12/2024 10:12 AM CDT) Tryptase 4.6 <=10.9 ug/L 04/14/2024 4:16 PM MEDICAL SCREENER [place] ([facility]) Blood BLOOD SPECIMEN / Unknown Lab Venipuncture / Unknown 04/12/2024 10:12 AM CDT 04/12/2024 10:34 AM CDT Atrur Mckinley MD LAB - CHEMISTRY LINH EASON Performing Organization Address City/[facility]/ZIP Co de Phone Number [place] ([facility]) [address] [place] [address], [facility] * IGE BLOOD (04/12/2024 10:12 AM CDT) IgE Total 62 <=214 kU/L 04/14/2024 8:16 PM MEDICAL SCREENER [place] ([facility]) Comment: REFERENCE INTERVAL: Immunoglobulin E, Serum Access complete set of age- and/or gender-specific reference intervals for this test in the [facility] Test Directory ([employer]). Performed By: [facility] [address] [place] [id number] Fringe Knotter: Ed Rowell MD, PhD CLIA Number: [id number] Blood BLOOD SPECIMEN / Unknown Lab Venipuncture / Unknown 04/12/2024 10:12 AM CDT 04/12/2024 10:34 AM CDT Artur Mckinley MD LAB - CHEMISTRY LINH EASON [place] ([facility]) [address] [place] [id number], [facility] from Last 3 Months Care Teams Cotton Tier Relationship Specialty Start Date End Date Lori Smith, SECRETARY BOOKKEEPER-ELECTRICAL ENGINEERING TEACHER [address] [place] [phone] PCP - General 12/15/21
--- OUTSIDE RECORDS SUMMARY | 2024-07-11 22:58 | XMS_ITS | Patient Health Summary ---
Author Organization [facility] Address [address] [place] [address] Care Team Providers Care Restrike Hammer Operator Name Role Phone Lori Smith APRN-HIGH SCHOOL COMPUTER SCIENCE TEACHER Primary Care Provider Note from [facility],non-owned Affiliates and Associated Physician Practices is amultiple site organization consisting of ambulatory clinics and hospital sitesin [place], [place], [place] and [place]. This disclosure is being madepursuant to the Care Everywhere program and may not contain all information available regarding this patient. Last updated 18.[facility] Allergies No known active allergies Medications * Be aware that medications may not be up to date on this document. Alwaysverify current medications with the patient. * EPINEPHrine (Epipen) 0.3 MG/0.3ML auto-injector pen(Started 03/17/2024) * predniSONE (Deltasone) 20 MG tablet(Started 05/11/2024) Take 2 (two) tablets by mouth once daily * montelukast (Singulair) 10 MG tablet(Started 05/15/2024) Take 1 (one) tablet by mouth once daily Reasons: Chronic Hives 4 refills by 05/15/2025 * famotidine (Pepcid) 20 MG tablet(Started 05/15/2024) Take 1 (one) tablet by mouth 2 times daily Reasons: Hives 4 refills by 05/15/2025 * cetirizine (ZyrTEC) 10 MG tablet(Started 05/15/2024) Take 1 (one) tablet by mouth 2 times daily Reasons: Chronic Hives 4 refills by 05/15/2025 Active Problems Problem Noted Date Diagnosed Date [...] Comments Blood Pressure 107/72 05/15/2024 11:01 AM COMMERCIAL FLOOR COVERING INSTALLER Pulse 70 05/15/2024 11:01 AM COMMERCIAL FLOOR COVERING INSTALLER Temperature 36.4 ??C (97.5 ??F) 05/15/2024 1 1:01 AM COMMERCIAL FLOOR COVERING INSTALLER Respiratory Rate 18 05/15/2024 11:0 1 AM COMMERCIAL FLOOR COVERING INSTALLER Oxygen Saturation 98% 05/15/2024 11: 01 AM COMMERCIAL FLOOR COVERING INSTALLER Inhaled Oxygen Concentration - - Weight 93.8 kg (206 lb 12.8 oz) 024 11:01 AM COMMERCIAL FLOOR COVERING INSTALLER Height 172.7 cm (5' 8 ) 05/15/2024 11:0 1 AM COMMERCIAL FLOOR COVERING INSTALLER Body Mass Index 31.44 05/15/2024 11:01 AM COMMERCIAL FLOOR COVERING INSTALLER Procedures * IMMUNOSCORE IGE INTERP(Performed 04/12/2024) Performed for Anaphylaxis, subsequent encounter * LAB MISC TEST(Performed 04/12/2024) Performed for Anaphylaxis, subsequent encounter * TRYPTASE(Performed 04/12/2024) Performed for Anaphylaxis, subsequent encounter * IGE BLOOD(Performed 04/12/2024) Performed for Anaphylaxis, subsequent encounter * ALLERGEN ALPHA GAL IGE(Performed 04/12/2024) Performed for Anaphylaxis, subsequent encounter Results * IMMUNOSCORE IGE INTERP (04/12/2024 10:12 AM CDT) Immunocap Score See Note 3:30 PM COMMERCIAL FLOOR COVERING INSTALLER [employer] ([facility]) Comment: REFERENCE INTERVAL: Allergen, Interpretation Less than [...] clinical allergy or even anaphylaxis. Performed By: [email or web address] [address] [place] [address] Bindery Leadperson: Ed Rowell MD, PhD CLIA Number: [id number] Blood BLOOD SPECIMEN / Unknown Lab Venipuncture / Unknown 04/12/2024 10:12 AM CDT 04/12/2024 10:34 AM CDT Artur Mckinley MD LAB - SEROLOGY ORDER GAYLE [employer] [facility]) [address] * ALLERGEN ALPHA GAL IGE (04/12/2024 10:12 AM CDT) Allergen Alpha Gal IgE <0.10 <=0.09 kU/L 04/14/2024 3:26 PM COMMERCIAL FLOOR COVERING INSTALLER [employer] ([facility]) Comment: INTERPRETIVE INFORMATION: Allergen, Food, Alpha-Gal, IgE [...] clinical allergy or even anaphylaxis. Performed By: [email or web address] [address] [place] [address] Bindery Leadperson: Ed Rowell MD, PhD CLIA Number: [id number] Blood BLOOD SPECIMEN / Unknown Lab Venipuncture / Unknown 04/12/2024 10:12 AM CDT 04/12/2024 10:34 AM CDT Artur Mckinley MD LAB - SEROLOGY ORDER GAYLE Performing Organization Address [facility]/ZIP Co de Phone Number [employer] [facility]) [address] [place] [address] * LAB MISC TEST (04/12/2024 10:12 AM CDT) Test Name ALLERGEN WHEAT IGE W COMPONENT RFLXS 04/19/2024 6:36 AM COMMERCIAL FLOOR COVERING INSTALLER [employer] Test Result See Scanned Report 04/19/2024 6:36 AM COMMERCIAL FLOOR COVERING INSTALLER [employer] Comment Ref Lab [facility] 04/19/2024 6:36 AM COMMERCIAL FLOOR COVERING INSTALLER [employer] Blood BLOOD SPECIMEN / Unknown Lab Venipuncture / Unknown 04/12/2024 10:12 AM CDT 04/12/2024 10:34 AM CDT Artur Mckinley MD LAB SEND OUT Performing Organization Address City/[facility]/[place] [address] * TRYPTASE (04/12/2024 10:12 AM CDT) Tryptase 4.6 <=10.9 ug/L 04/14/2024 4:16 PM COMMERCIAL FLOOR COVERING INSTALLER [employer] ([facility]) Blood BLOOD SPECIMEN / Unknown Lab Venipuncture / Unknown 04/12/2024 10:12 AM CDT 04/12/2024 10:34 AM CDT Artur Mckinley MD LAB - CHEMISTRY LINH EASON Performing Organization Address City/[facility]/ZIP Co de Phone Number [employer] ([facility]) [address] [place] [address] * IGE BLOOD (04/12/2024 10:12 AM CDT) IgE Total 62 <=214 kU/L 04/14/2024 8:16 PM COMMERCIAL FLOOR COVERING INSTALLER [employer] ([facility]) Comment: REFERENCE INTERVAL: Immunoglobulin E, Serum Access complete set of age- and/or gender-specific reference intervals for this test in the [facility] Test Directory ([employer]). Performed By: [email or web address] [address] [place] [address] Bindery Leadperson: Ed Rowell MD, PhD CLIA Number: [id number] Blood BLOOD SPECIMEN / Unknown Lab Venipuncture / Unknown 04/12/2024 10:12 AM CDT 04/12/2024 10:34 AM CDT Artur Mckinley MD LAB - CHEMISTRY LINH EASON [employer] ([facility]) [address] [place] [address] Care Teams Restrike Hammer Operator Relationship Specialty Start Date End Date Lori Smith, COSMETICS PRESSER-HIGH SCHOOL COMPUTER SCIENCE TEACHER [address] [place] [phone] PCP - General 12/15/21
--- OUTSIDE RECORDS SUMMARY | 2024-07-11 22:58 | XMS_ITS | Data Portability ---
Author Organization [facility] [place] Address [address] [place] [address] Assessment Encounter Date Assessment Date Assessment LastModified by Organization Details LastModified Time 11/24/2021 11/24/2021 Patient is __37_weeks . Discussed plan. Not available 11/24/2021 12:28:39 01/05/2022 01/05/2022 normal pp exam, start slynd, give a few weeks to be effective, breast feeding as some protection, f/u wwe may 2022 Not available 01/05/2022 10:35:21 03/10/2023 03/10/2023 Annual gynecological exam performed. Patient will come back in a year unless there are new symptoms. Suggest Calcium with Vitamin D if not eating in diet. Patient advised to get annual flu shot. Recommend yearly physicals and preform monthly breast exams. Genetic testing is available for patients with family history of cancer. Engage in safe sexual practices, use condoms. Encouraged to have daily exercise. Avoid tobacco and illicit drugs, moderation of alcohol. If BMI greater than 25 dietary consult advised. If you have any questions please call or email. Not available 03/10/2023 15:55:12 Plan of Treatment Reminders Order Date Submit Date Provider Last Modified By Organization Details Last Modified Time Details Appointments None recorded. Lab test, urine 2022 023 [email or web address] 1 [place], [address], [place], [address], 12:18:52 Referral None recorded. Procedures None recorded. Surgeries None recorded. Imaging None recorded. Medication Orders norethindro ne (contracept vianney) 0.35 mg tablet 2022 023 [email or web address] 1 [id number], [address], [place], [id number], 14:06:50 Patient TargetsNo targets recorded. Patient InstructionsNo instructions recorded. Reason for Referral None Reported. Results Created Date Observation Date Name Description Value Unit Range Abnormal Flag Note LastModifiedBy Organization Detail LastModifiedTime 11/11/19 22 11/10/2021 CULTU RE: GROUP B STREP SCREE N result report SEE RESULT S BELOW Test: Cultu re: Group B Strep Scree n - Vagin al/Re ctal Speci men Sourc e: Vagin a/Rec april Speci men Type: Vagin al/Re ctal Speci men Date: 6:11 PM Resul t Date: 2:46 PM Resul t Statu s: Final resul t Abnor mal: No Resul ting Lab: [facility] [address] [facility] [address] Tel: CULTU RE ----- ----- ----- --- No Group B strep isola deena at 2 days (derick ctive broth enhan cemen t) Not Available [facility] (Lab) [address] [facility], [place], [address], 11/13/2021 15:48:23 10/01/19 23 09/30/2022 TSH, REFLE X FREE T4 TSH 1.59 uIU/m L 0.30-5 .33 Not Available [facility] (Lab) [address] [facility] [address], [place], [address], 10/01/2022 05:31:50 10/01/19 23 09/30/2022 pregn umer test, urine HCG negati ve Not Available [place] [address], [place], [address], 09/30/2022 12:18:33 03/10/20 23 03/10/2023 IMAGE GUIDE D PAP AND HPV REGAR DLESS image guided Pap, HPV regardless of Pap result SEE RESULT S BELOW CASE REPOR T: Cytol ogy Gynec ologi lesley Repor t Case: [id number] Autho giovany lerner Provi fadi: Sarah israel Rain RodgersKathy, YAIMA Ordaz cted: 03/10 1519 Order ing Locat ion: [place] [facility] Recei santiago: 03/13 0717 First Scree n: Leora Barron ica Speci men: Nicolas broussard Pap - Image d, Cervi x STATE MENT OF ADEQU ACY: Satis facto ry for evalu ation Trans forma tion zone compo nent prese nt FINAL DIAGN OSIS: Negat vianney for Intra epith elial Leskorin toledo or Cindy seo (NIL) . Elect boone swenson rajwinder d by Leora Barron ica on 2022 at 5:19 PM ----- ----- ----- ----- ----- ----- ----- ----- ----- ----- ----- ----- ----- ----- ----- ----- ----- ---- HPV RESUL TS: HPV mRNA E6/E7 : No HPV mRNA Detec deena NOTE: This high risk HPV mRNA assay detec ts fourt een high- risk HPV types (16, 18, 31, 33, 35, 39, 45, 51, 52, 56, 58, 59, 66, 68) witho ut diffe renti ation . COMME NT: This speci men was revie wed by a Cytot echno logis t and/o r Patho logis t (as indic ated in this repor t) after evalu ation using the Thinp rep Imagi ng Syste m. CLINI LESLEY INFOR MATIO N: Menst rual Statu s: LMP (if appli cable ): Clini lesley Histo ry/Pr eviou s Pap: Type of Neopl daily (if appli cable ): Signi fican t Clini lesley Findi ngs: Other Histo ry: Hormo mary (if appli cable ): PAP EDUCA TOREY L NOTE: The Pap Test is a scree aarti test with an inher ent false negat vianney rate. Liqui d-bas ed sampl ing may decre ase, but will not elimi juan, false negat vianney resul ts. A negat vianney resul t does not precl ude the prese nce and/o r devel opmen t of disea se, since the prese nce of abnor mal cells in the sampl e depen ds on the locat ion of the lesio n and sampl ing techn ique. Shruthi nued regul ar scree aarti is the best metho d of cance r preve ntion . If repor deena cytol ogic findi ng do not corre late with physi lesley and/o r histo rical findi ngs, furth er inves tigat ion is recom darya d, as clini stephanie warra nted. Not Available [facility] (Lab) [address], [place], [address], 03/14/2023 18:22:32 11/11/19 22 11/10/2021 US, obste tric, follo w-up No observ ation record ed. [email or web address] [place] [address], [place], [address], 11/10/2021 17:51:15 11/11/19 22 11/10/2021 US, obste tric, follo w-up No observ ation record ed. [email or web address], [place], [address], 11/10/2021 20:31:00 11/21/19 22 11/20/2021 XR, chest No observ ation record ed. [place] [address], [place], [address], 12/15/2021 17:02:04 11/22/19 22 11/20/2021 XR, chest No observ ation record ed. [facility] [address], [place], [address], 12/15/2021 17:02:28 Result Notes None recorded. Problems Name Problem SNOMED Code Status Onset Date Resolution Date Notes Provider Name and Address Organization Details Recorded Time Pregnanc y detectio n examinat ion Completed 201705/10/2021 Encounte r for pregnanc y test, result positive ;Recorde d Elsewher e: No Locat ion: [facility] S ource: EHR Cloth Bolt Bander michael: N Practi ce ID: 0001 Vasu lable Time: 08:30:00 AM Jennyfer grey [facility] 15:25:58 Normal pregnanc y in multigra jose [id number] 4106 Completed 201705/10/2021 Encounte r for supervis ion of other normal pregnanc y, 1st trimeste r;Record ed Elsewher e: No Locat ion: [facility] S ource: EHR Cloth Bolt Bander michael: N Practi ce ID: 0001 Vasu lable Time: 08:45:00 AM Jennyfer grey [facility] 15:25:35 Removal of intraute rine device Completed 201205/10/2021 REMOVAL OF IUD;Jeronimo rded Elsewher e: No [facility]: E[facility] Cloth Bolt Bander michael: N Practi ce ID: 0001 Vasu lable Time: 04:45:00 PM Jennyfer grey [facility] 15:25:48 Postcoit al bleeding [id number] Completed 201205/10/2021 Postcoit al bleeding ;Recorde d Elsewher e: No Locat ion: [facility] S ource: EHR Cloth Bolt Bander michael: N Practi ce ID: 0001 Vasu lable Time: 05:45:00 PM Jennyfer grey [facility] 15:25:[address] Concept Completed 201505/10/2021 Encntr for general adult medical exam w/o abnormal findings ;Recorde d Elsewher e: No Locat ion: [facility] S ource: EHR Cloth Bolt Bander michael: N Practi ce ID: 0001 Vasu lable Time: 11:30:00 AM Jennyfer Rhodes [facility] 15:25:23 Erosion and ectropio n of the cervix Completed 201205/10/2021 Erosion and ectropio n of cervix;R ecorded Elsewher e: No Locat ion: [facility] S ource: EHR Cloth Bolt Bander michael: N Practi ce ID: 0001 Vasu lable Time: 08:30:00 AM Jennyfersergio Rhodes [facility] 15:24:44 Urinary tract infectio n followin g delivery [id number] Completed 201805/10/2021 UTI postpart um;Recor ded Elsewher e: No Locat ion: [facility] S ource: EHR Cloth Bolt Bander michael: N Practi ce ID: 0001 Vasu lable Time: 03:00:00 PM [facility] 15:24:51 Screenin g for malignan t neoplasm of cervix Completed 201405/10/2021 Screenin g for malignan t neoplasm s of the cervix;R ecorded Elsewher e: No Locat ion: [facility] S ource: EHR Cloth Bolt Bander michael: N Practi ce ID: 0001 Vasu lable Time: 09:00:00 AM Jennyfer Rhodes [facility] 15:24:41 Insertio n of intraute rine contrace ptive device Completed 201105/10/2021 INSERTIO N OF IUD;Jeronimo rded Elsewher e: No Locat ion: [facility] S ource: EHR Cloth Bolt Bander michael: N Practi ce ID: 0001 Vasu lable Time: 10:45:00 AM Jennyfer grey [facility] 15:25:47 Pelvic and perineal pain [id number] Completed 201805/10/2021 Pelvic pain;Rec orded Elsewher e: No Locat ion: Mandy ana maria [facility] S ource: EHR Cloth Bolt Bander michael: N Arielti ce ID: 0001 Vasu lable Time: 01:30:00 PM Jennyfer grey [facility] 15:25:16 Educatio n Completed 201805/10/2021 Encounte r for other general counseli ng and advice on contrace ption;Re corded Elsewher e: No Locat ion: [facility] S ource: EHR Cloth Bolt Bander michael: N Arielti ce ID: 0001 Vasu lable Time: 02:45:00 PM Jennyfer grey [facility] 15:25:26 Abnormal weight gain [id number] Completed 201205/10/2021 Abnormal weight gain;Rec orded Elsewher e: No Locat ion: [facility] Arielti ce ID: 0001 Vasu lable Time: 05:45:00 PM Jennyfer gery [facility] 15:24:38 Lochia finding Completed 201805/10/2021 Encounte r for routine postpart um follow-u p;Record ed Elsewher e: No Locat ion: [facility] S ource: EHR Cloth Bolt Bander michael: N Arielti ce ID: 0001 Vasu lable Time: 02:45:00 PM Jennyfer grey [facility] 15:25:30 Pregnanc y test negative [id number] Completed 201105/10/2021 Pregnanc y examinat ion or test, negative result;R ecorded Elsewher e: No Locat ion: Zahra rodgers [facility] S ource: EHR Cloth Bolt Bander michael: N Practi ce ID: 0001 Vasu lable Time: 10:45:00 AM Jennyfer grey [facility] 15:25:13 Pregnanc y, childbir th and puerperi um finding Completed 201805/10/2021 Encntr for suprvsn of normal first preg, third trimeste r;Record ed Elsewher e: No [facility]: EHR Cloth Bolt Bander michael: N Practi ce ID: 0001 Vasu lable Time: 01:00:00 PM Jennyfer grey [facility] 15:25:28 Human papillom avirus deoxyrib onucleic acid detected , high risk on cervical specimen [id number] Completed 201605/10/2021 Cervical high risk HPV DNA test positive ;Recorde d Elsewher e: No Locat ion: [facility] S ource: EHR Cloth Bolt Bander michael: N Practi ce ID: 0001 Vasu lable Time: 03:45:00 PM Jennyfer grey [facility] 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 15:25:25 Antenata l screenin g Completed 201705/10/2021 Encounte r for antenata l screenin g for nuchal transluc ency;Rec orded Elsewher e: No [facility] ource: EHR Cloth Bolt Bander michael: N Practi ce ID: 0001 Vasu lable Time: 08:15:00 AM Jennyfer grey [facility] 15:25:09 Speciali zed medical examinat ion Completed 201105/10/2021 Gynecolo gical Examinat ion;Jeronimo rded Elsewher e: No Locat ion: [facility] S ource: EHR Cloth Bolt Bander michael: N Arielti ce ID: 0001 Vasu lable Time: 11:00:00 AM Jennyfer grey [facility] 15:25:42 Non-prot einuric hyperten deneen of pregnanc y [id number] Completed 201805/10/2021 Gestatio nal hyperten deneen w/o signific ant proteinu matty, complica ting the postpart um period;R ecorded Elsewher e: No Locat ion: [facility] S ource: EHR Cloth Bolt Bander michael: N Arielti ce ID: 0001 Vasu lable Time: 03:00:00 PM Jennyfer grey [facility] 15:25:19 False labor at or after 37 complete d weeks of gestatio n [id number] Completed 201005/10/2021 Other threaten ed labor, unspecif ied as to episode of care;Pra ctice ID: 0001 [facility] 15:24:50 Finding related to pregnanc y [id number] Completed 201005/10/2021 CERVICAL SHORTENI NG-ANTE; Practice ID: 0001 Jennyfer grey [facility] 15:25:40 Routine antenata l care Completed 201005/10/2021 Supervis ion of other normal pregnanc y;Practi ce ID: 0001 Jennyfer grey [facility] 15:24:33 Female genital organ symptoms [id number] Completed 201005/10/2021 Unspecif ied symptom associat ed with female genital organs;P ractice ID: 0001 Jennyfer grey, [facility] 15:24:46 Complica tion of pregnanc y, childbir th and/or puerperi um [id number] Completed 201005/10/2021 Other current conditio ns classifi able elsewher e of mother, antepart um;Pract ice ID: 0001 [facility] 15:24:48 Prematur e labor [id number] Completed 201005/10/2021 LABOR;Pr actice ID: 0001 [facility] 15:25:44 Obstetri c non-puru lent mastitis - delivere d with postnata l complica tion [id number] Completed 201005/10/2021 Postpart um nonpurul ent mastitis ;Practic e ID: 0001 [facility] 15:24:53 Delivery normal [id number] Completed 201005/10/2021 Normal delivery ;Practic e ID: 0001 Jennyfer grey [facility] 15:25:36 Single live [id number] Completed 201005/10/2021 Mother with single liveborn ;Practic e ID: 0001 Jennyfer grey, [facility] 15:24:39 Urinary tract infectio us disease [id number] Completed 201005/10/2021 Urinary tract infectio n, site not specifie d;Practi ce ID: 0001 Jennyfer grey [facility] 15:25:50 Postpart um care Completed 201005/10/2021 Routine postpart um follow-u p;Arielti ce ID: 0001 Jennyfer grey, [facility] 15:24:31 Family planning surveill ance Completed 201105/10/2021 Contrace ptive surveill ance, unspecif ied;Prac junaid ID: 0001 Jennyfer grey, [facility] 15:25:33 Dysfunct ional uterine bleeding Completed 201205/10/2021 DUB;Prac junaid ID: 0001 Jennyfer grey, [facility] 15:24:43 Cyst of ovary Completed 201805/10/2021 Unspecif ied ovarian cyst, unspecif ied side;Rec orded Elsewher e: No Locat ion: [facility] N Practi ce ID: 0001 Vasu lable Time: 01:30:00 PM Jennyfer grey [facility] 15:24:56 Chlamydi al infectio n [id number] Completed 201505/10/2021 Chlamydi al infectio n, unspecif ied;Jeronimo rded Elsewher e: No Locat ion: [facility]: N Practi ce ID: 0001 Vasu lable Time: 05:08:25 PM Jennyfer grey, [facility] 15:24:29 Irregula r intermen strual bleeding [id number] Completed 201305/10/2021 Metrorrh agia;Rec orded Elsewher e: No Locat ion: [facility]: N Practi ce ID: 0001 Vasu lable Time: 08:30:00 AM Jennyfer grey [facility] 15:25:45 Placenta previa [id number] Completed 201805/10/2021 Placenta previa specifie d as w/o hemor, second trimeste r;Record ed Elsewher e: No Locat ion: [facility]ah[facility] S ource: EHR Cloth Bolt Bander michael: N Arielti ce ID: 0001 Vasu lable Time: 01:00:00 PM Jennyfer Rhodes [facility] 15:25:32 Gestatio n period, 9 weeks [id number] Completed 201705/10/2021 9 weeks gestatio n of pregnanc y;Record ed Elsewher e: No [facility] our[facility]: EHR Cloth Bolt Bander michael: N Arielti ce ID: 0001 Vasu lable Time: 08:30:00 AM Jennyfer Rhodes [facility] 15:26:02 Adult health examinat ion Completed 201405/10/2021 ROUTINE MEDICAL EXAM;Rec orded Elsewher e: No Locat ion: [facility] S ource: EHR Cloth Bolt Bander michael: N Arielti ce ID: 0001 Vasu lable Time: 09:00:00 AM Jennyfer grey [facility] 15:25:14 Antenata l screenin g for malforma tion Completed 201705/10/2021 Encounte r for antenata l screenin g for malforma tions;Re corded Elsewher e: No Locat ion: [facility] S ource: EHR Cloth Bolt Bander michael: N Arielti ce ID: 0001 Vasu lable Time: 01:00:00 PM Jennyfer grey [facility] 15:25:52 Gestatio n period, 24 weeks [id number] Completed 201805/10/2021 24 weeks gestatio n of pregnanc y;Record ed Elsewher e: No Locat ion: [facility] S ource: EHR Cloth Bolt Bander michael: N Practi ce ID: 0001 Vasu lable Time: 01:00:00 PM Jennyfer Rhodes matilda, [facility] 15:25:21 Secondar y amenorrh ea [id number] Completed 201705/10/2021 Secondar y amenorrh ea;Pract ice ID: 0001 Jennyfer Rhodes matilda, [facility] 15:24:36 Pregnanc y, childbir th and puerperi um finding Completed 201805/10/2021 Oth pregnanc y related conditio ns, second trimeste r;Practi ce ID: 0001 Jennyfer Carmelo matilda, [facility] 15:25:04 Abdomina l pain [id number] Completed 201805/10/2021 Unspecif ied abdomina l pain;Pra ctice ID: 0001 Jennyfer Rhodes matilda, [facility] 15:24:55 Gestatio n period, 25 weeks [id number] Completed 201805/10/2021 25 weeks gestatio n of pregnanc y;Practi ce ID: 0001 Jennyfer Rhodes matilda, [facility] 15:25:56 Complica tion occurrin g during pregnanc y Completed 201805/10/2021 Infectio n oth prt genitl trct in pregnanc y, third trimeste r;Practi ce ID: 0001 Jennyfer Rhodes matilda, [facility] 15:25:02 Gestatio n period, 33 weeks [id number] Completed 201805/10/2021 33 weeks gestatio n of pregnanc y;Practi ce ID: 0001 Jennyfer Carmelo grey, [facility] 15:25:59 Spotting per vagina in pregnanc y [id number] Completed 201805/10/2021 Spotting complica ting pregnanc y, third trimeste r;Practi ce ID: 0001 Jennyfer grey, [facility] 15:25:[address] Concept Completed 201805/10/2021 Decrease d movement s, third trimeste r, unsp;Pra ctice ID: 0001 Jennyfer grey, [facility] 15:25:05 Gestatio n period, 35 weeks [id number] Completed 201805/10/2021 35 weeks gestatio n of pregnanc y;Practi ce ID: 0001 Jennyfer grey, [facility] 15:26:01 Pregnanc y-induce d hyperten deneen Completed 201805/10/2021 Gestatio nal htn w/o signific ant proteinu matty, unsp trimeste r;Practi ce ID: 0001 Jennyfer grey, [facility] 15:25:00 Finding of contents of cervix 610688904 Completed 201805/10/2021 Weeks of gestatio n of pregnanc y not specifie d;Practi ce ID: 0001 Jennyfer grey, [facility] 15:25:11 Lacerati on of female perineum Completed 201805/10/2021 First degree perineal lacerati on during delivery ;Practic e ID: 0001 Jennyfer grey, [facility] 15:25:07 Pregnanc y-induce d hyperten deneen Completed 201805/10/2021 Gestatio nal htn w/o signific ant proteinu matty, third trimeste r;Practi ce ID: 0001 Jennyfer grey, [facility] 15:24:58 Gestatio n period, 38 weeks [id number] Completed 201805/10/2021 38 weeks gestatio n of pregnanc y;Practi ce ID: 0001 Jennyfer Rhodes null, [facility] 1 15:24:34 Pregnanc y 84272171 Completed 202101/17/2022 Cynthia Beenstie hl null, [facility] 2 16:09:13 History of loop electros urgical excision procedur e [id number] 102 [address] CL at 16 and 20w Cynthia Beenstie hl null, [facility] 2 16:09:05 Maternal obesity complica ting pregnanc y, childbir th and the puerperi um, antepart um [id number] 7 Completed BMI 34- no ante testing needed Cynthia Bains hl null, [facility] 2 16:09:05 Advanced maternal age 554606810 Completed NIPT Cynthia Bains hl null, [facility] 2 16:09:05 Past pregnanc y history of gestatio nal hyperten deneen 822444270 Completed with G3- on ASA,, baseline labs Cynthia Bains hl null, [facility] 2 16:09:05 History of loop electros urgical excision procedur e [id number] 102 Active CL at 16 and 20w Cynthia Johnsontie hl null, [facility] 2 16:09:05 Asthma in pregnanc y 50423209141 103 Completed albutero l 1x/week Cynthiablanco Beenstie hl null, [facility] 2 16:09:05 Problem Notes None recorded. Procedures Surgical History Date Name Laterality Status Provider Name and Address Organization Details Recorded Time 12/11/19 22 cholecystectomy completed Melyssa Noel [facility] 03/10/2023 14:07:37 05/11/20 21 Date of Last Pap Smear completed Melyssa Noel [facility] 10/06/2021 08:56:40 06/16/19 17 Colposcopy completed Jennyfer Rhodes [facility] 05/10/2021 15:37:03 06/12/19 17 Colposcopy completed Melyssa Noel [facility] 11/02/2021 17:31:23 06/12/19 07 LEEP completed Juanis Willis [facility] 06/14/2021 12:06:36 Imaging Results Imaging Date Name Status LastModified by Organiz ation Details LastModified Time 11/10/2021 US, obstetric, follow-up completed [email or web address] [place] [address], [place], [address], 11/10/2021 17:51:15 11/10/2021 US, obstetric, follow-up completed [email or web address], [place], [address], 11/10/2021 20:31:00 11/20/2021 [email or web address] [address] [facility] [address] [place] [address], [address], 12/15/2021 17:02:04 11/20/2021 XR, chest [email or web address] [address] [facility] [address], [place], [address], 12/15/2021 17:02:28 Procedure Notes None recorded. Medical Equipment None Reported. Allergies Allergen ID Allergen Name Allergen Category Reaction Reaction Severity Criticality Documentation Date Start Date Code Code System Note Provider Name and Address Organization Details Recorded Time 17570 metronida zole medicatio n rash Not available Not available 05/29/2020 6922 RxNorm Jennyfer grey [facility] 15:24:00 Medications Name Sig Start Date Stop Date Status Note LastModified by Organization Details LastModified Time nifedipin e ER 30 mg tablet,ex tended release 24 hr TAKE 1 TABLET BY MOUTH EVERY DAY 01/05 completed Not Available Not Available Not Available clindamyc in HCl 300 mg capsule TAKE 1 CAPSULE BY MOUTH EVERY 6 HOURS TILL GONE. 05/10 completed Not Available Not Available Not Available trazodone 50 mg tablet TAKE 1 TABLET BY MOUTH EVERY DAY 03/10 completed Not Available Not Available Not Available azithromy otf 250 mg tablet 09/30 completed Not Available Not Available Not Available ibuprofen 800 mg tablet TAKE 1 TABLET BY MOUTH EVERY 6 HOURS NEEDED FOR PAIN 05/10 completed Not Available Not Available Not Available fluconazo le 150 mg tablet TAKE 1 TABLET BY MOUTH IMMEDIAT DANTE AND TAKE 1 TABLET IN 48 HOURS 11/17 completed Not Available Not Available Not Available hydrocodo ne 5 mg-acetam inophen 325 mg tablet TAKE 1 TABLET BY MOUTH EVERY 6 HOURS NEEDED FOR PAIN 09/30 completed Not Available Not Available Not Available ondansetr on HCl 4 mg tablet TAKE 1 TABLET BY MOUTH EVERY 4 TO 6 HOURS NEEDED FOR NAUSEA 09/30 completed Not Available Not Available Not Available prednison e 20 mg tablet TAKE ONE TABLET BY MOUTH TWO TIMES A DAY FOR 5 DAYS 10/20 completed Not Available Not Available Not Available Cleocin 100 mg vaginal supposito ry insert 1 supposit ory by vaginal route every night for 3 days at bedtime 09/14 completed Prescrib tejas Colby e: No Locat ion: [facility] odify By: keegan conteh DateTime : 09/14/19 02:57:18 PM Not Available Not Available Not Available nifedipin e ER 30 mg tablet,ex tended release TAKE 1 TABLET BY MOUTH EVERY MORNING 10/20 completed Not Available Not Available Not Available tramadol 50 mg tablet TAKE 1 TO 2 TABLETS BY MOUTH EVERY 6 HOURS NEEDED FOR PAIN 05/10 completed Not Available Not Available Not Available butalbita l-acetami nophen-ca ffeine 50 mg-325 mg-40 mg tablet TAKE ONE TABLET EVERY FOUR TO SIX HOURS NEEDED. MAX 6 TABLETS IN 24 HOURS 01/05 completed Not Available Not Available Not Available Macrobid 100 mg capsule take 1 capsule by oral route every 12 hours with food 05/10 completed Prescrib ed Elsewher e: No Locat ion: [facility] odify By: [email or web address] Encounte r DateTime : 10/23/19 19 03:00:00 PM Not Available Not Available Not Available terconazo le 80 mg vaginal supposito ry insert 1 supposit ory by vaginal route every day at bedtime x 3 nights 05/10 completed Prescrib ed Elsewher e: No Locat ion: [facility] odify By: burak conteh DateTime : 09/12/19 19 01:15:00 PM Not Available Not Available Not Available alprazola m 0.5 mg tablet TAKE 1 TABLET BY MOUTH EVERY DAY NEEDED active Not Available Not Available No t Available Microgest in FE 07/01 (28) 1 mg-20 mcg (21)/75 mg (7) tablet TAKE 1 TABLET BY ORAL ROUTE EVERY DAY 07/17 completed Prescrib ed Elsewher e: No Locat ion: [facility] odify By: italo Wright nter DateTime : 05/16/20 17 04:31:32 PM Not Available Not Available Not Available amoxicill in 875 mg tablet TAKE 1 TABLET BY MOUTH EVERY 12 HOURS UNTIL ALL TAKEN 05/10 completed Not Available Not Available Not Available Cyclessa (28) 0.1 mg/0.125 mg/0.15 mg-25 mcg tablet take 1 tablet by oral route every day for 28 days 07/17 completed Prescrib ed Elsewher e: No Locat ion: [facility] odify By: italo Wright nter DateTime : 07/14/19 15 01:50:11 PM Not Available Not Available Not Available prednison e 50 mg tablet TAKE 1 TABLET BY MOUTH DAILY FOR 5 DAYS 07/13 completed Not Available Not Available Not Available clindamyc in 2 % vaginal cream insert 1 applicat orful by vaginal route every day for 7 days at bedtime 09/20 completed Prescrib ed Elsewher e: No Locat ion: [facility] odify By: [email or web address] Winter ter DateTime : 09/15/19 12:44:30 PM Not Available Not Available Not Available zolpidem 5 mg tablet TAKE 1 TABLET BY MOUTH EVERY DAY AT BEDTIME 01/05 completed Not Available Not Available Not Available Alprazola m Intensol 1 mg/mL oral concentra te take 0.25 millilit er by oral route 3 times every day mixed with water, juice, soda, soda-lik e beverage , applesau ce or pudding 04/12 completed Prescrib ed Elsewher e: Yes Loca tion: [facility] odify By: [email or web address] Winter ter DateTime : 12/12/19 02:15:00 PM Not Available Not Available Not Available methylpre dnisolone 4 mg tablets in a dose pack FOLLOW PACKAGE DIRECTIO NS 09/30 completed Not Available Not Available Not Available albuterol sulfate HFA 90 mcg/actua tion aerosol inhaler INHALE 2 PUFFS BY MOUTH EVERY 6 HOURS NEEDED FOR SHORTNES S OF BREATH 07/13 completed Not Available Not Available Not Available norethind mallory (contrace ptive) 0.35 mg tablet take 1 tablet by oral route every day 03/10 completed Not Available Not Available Not Available Ortho Tri-Cycle n (28) 0.18 mg(7)/0.2 15 mg(7)/0.2 5 mg(7)-35 mcg tablet take 1 tablet by oral route every day 05/15 completed Prescrib ed Elsewher e: No Locat ion: [facility] odify By: cmedical Encount er DateTime : 08/14/19 14 10:38:43 AM Not Available Not Available Not Available amoxicill in 500 mg-potass ium clavulana te 125 mg tablet TAKE 1 TABLET BY MOUTH EVERY 12 HOURS FOR 7 DAYS 09/30 completed Not Available Not Available Not Available Depo-Prov era 150 mg/mL intramusc ular syringe inject 1 millilit er by intramus cular route every 3 months 07/17 completed Prescrib ed Elsewher e: No Locat ion: [facility] odify By: italo tz Encou nter DateTime : 12/12/19 15 02:15:00 PM Not Available Not Available Not Available Zithromax 500 mg tablet take 2 tablet by oral route once 04/12 completed Prescrib ed Elsewher e: No Locat ion: [facility] odify By: sabrina conteh DateTime : 04/26/20 16 05:08:25 PM Not Available Not Available Not Available escitalop jennifer 10 mg tablet TAKE 1 TABLET BY MOUTH EVERY DAY 03/10 completed Not Available Not Available Not Available escitalop jennifer 5 mg tablet TAKE 1 TABLET BY MOUTH EVERY DAY 03/10 completed Not Available Not Available Not Available Ortho-Cyc aidan (28) 0.25 mg-35 mcg tablet take 1 tablet by oral route every day 04/12 completed Prescrib ed Elsewher e: No Locat ion: [facility] odify By: sabrina pickett Encoun yady DateTime : 07/17/19 18 08:15:00 AM Not Available Not Available Not Available Clindesse 2 % vaginal cream,ext ended release insert 1 applicat orful by vaginal route once 04/12 completed Prescrib ed Elsewher e: No Locat ion: [facility] odify By: sabrina pickett Encoun yady DateTime : 01/17/20 17 02:18:01 PM Not Available Not Available Not Available 01/05 completed Not Available Not Available Not Available Loestrin 24 Fe 1 mg-20 mcg (24)/75 mg (4) tablet take 1 tablet by oral route every day 07/26 completed Prescrib ed Elsewher e: No Locat ion: [facility] odify By: jjoana Corral r DateTime : 06/15/19 12 11:00:00 AM Not Available Not Available Not Available MICHAEL (28) 3 mg-0.02 mg tablet take 1 tablet by oral route every day 05/15 completed Prescrib ed Elsewher e: No Locat ion: [facility] odify By: cmedical Encount er DateTime : 08/30/19 14 08:30:00 AM Not Available Not Available Not Available Symbicort 160 mcg-4.5 mcg/actua tion HFA aerosol inhaler INHALE 1 PUFF BY MOUTH TWICE DAILY active Not Available Not Available No t Available Fioricet 50 mg-300 mg-40 mg capsule Take 1 capsule every 4 hours by oral route. 10/20 completed Not Available Not Available Not Available Slynd 4 mg (28) tablet TAKE 1 TABLET BY MOUTH EVERY DAY 03/10 completed Not Available Not Available Not Available ID NOW COVID-19 Test Kit TEST DIRECTED 05/10 completed Not Available Not Available Not Available Vitals Date Recorded Body height Body mass index (BMI) Body weight Systolic blood pressure Diastolic blood pressure Provider Name and Address Organization Details Last Updated DateTime 11/24/2021 172.72 cm 36.3 kg/m2 197975.5 7643 g 126 mm[Hg] 72 mm[Hg] Melyssa Noel [facility] 2 12:04:04 Date Recorded Body height Body mass index (BMI) Body weight Systolic blood pressure Diastolic blood pressure Provider Name and Address Organization Details Last Updated DateTime 12/02/2021 172.72 cm 36.5 kg/m2 757148.1 688 g 130 mm[Hg] 77 mm[Hg] Juanis Willis [facility] 2 09:31:39 Date Recorded Body height Body mass index (BMI) Systolic blood pressure Diastolic blood pressure Provider Name and Address Organization Details Last Updated DateTime 01/05/2022 172.72 cm 33.5 kg/m2 117 mm[Hg] 74 mm[Hg] Melyssa Noel [facility] 01/05/2022 10:00:57 Date Recorded Body weight Provider Name an d Address Organization Details Last Updated DateTime 01/05/2022 88821.3214 g Cynthia Palacios [facility] 01/17/2022 16:09:08 Date Recorded Body height Body mass index (BMI) Body weight Systolic blood pressure Diastolic blood pressure Provider Name and Address Organization Details Last Updated DateTime 09/30/2022 172.72 cm 34.1 kg/m2 492111.6 9 g 130 mm[Hg] 70 mm[Hg] Melyssa Noel [facility] 3 12:11:51 Date Recorded Body height Body mass index (BMI) Body weight Systolic blood pressure Diastolic blood pressure Provider Name and Address Organization Details Last Updated DateTime 03/10/2023 172.72 cm 33.9 kg/m2 146266.1 g 136 mm[Hg] 88 mm[Hg] Melyssa Noel [facility] 3 14:06:39 Social History Question Answer Notes LastModified by Organizat ion Details LastModified Time Tobacco Smoking Status Current Some Day Smoker Melyssa Noel [facility] 08/25/2021 14:19:36 Do You Have An Advance Directive? No [email or web address] Information not available 08/25/2021 What Is Your Level Of Alcohol Consumption? None Information not available 11/03/2021 If You Are , What Was Your Level Of Alcohol Consumption Prior To ? Occasional [email or web address] Information not available 11/03/2021 Are You Blind Or Do You Have Difficulty Seeing? No [email or web address] Information not available 08/25/2021 What Is Your Level Of Caffeine Consumption? Occasional [email or web address] Information not available 08/25/2021 In The 14 Days Before Symptom Onset, Have You Had Close Contact With A Laboratory-confir med COVID-19 While That Case Was Ill? No [email or web address] Information not available 08/25/2021 In The 14 Days Before Symptom Onset, Have You Had Close Contact With A Person Who Is Under Investigation For COVID-19 While That Person Was Ill? No Information not available 08/25/2021 Have You Been To An Area Known To Be High Risk For COVID-19? No [email or web address] Information not available 08/25/2021 Are You Deaf Or Do You Have Serious Difficulty Hearing? No [email or web address] Information not available 08/25/2021 What Type Of Diet Are You Following? REGULAR [email or web address] Information not available 08/25/2021 Are There Any Guns Present In Your Home? Yes [email or web address] Information not available 08/25/2021 Have You Ever Been Counseled For Unhealthy Alcohol Use? No [email or web address] Information not available 08/25/2021 Do You Use Your Seat Belt Or Car Seat Routinely? Yes [email or web address] Information not available 08/25/2021 Do You Have Smoke And Carbon Monoxide Detectors In Your Home? Yes [email or web address] Information not available 08/25/2021 How Much Tobacco Do You Smoke? No [email or web address] Information not available 08/25/2021 Do You Use Any Illicit Or Recreational Drugs? No Information not available 08/25/2021 Do You Use Sunscreen Routinely? No [email or web address] Information not available 08/25/2021 Has Tobacco Cessation Counseling Been Provided? No [email or web address] Information not available 08/25/2021 Do You Or Have You Ever Used Any Other Forms Of Tobacco Or Nicotine? No [email or web address] Information not available 08/25/2021 Sex: Unknown Functional Status Question Answer Note LastModified by Organizat ion Details LastModified Time Do you have difficulty walking or climbing stairs? No [email or web address] Information not available 08/25/2021 Are you able to walk? YESWOREST [email or web address] Information not available 08/25/2021 Are you able to care for yourself? Yes [email or web address] Information not available 08/25/2021 Do you have difficulty dressing or bathing? No [email or web address] Information not available 08/25/2021 What is your exercise level? Occasional [email or web address] Information not available 08/25/2021 Mental Status None recorded. Family History Relationship Description Onset Age of this Age Resolved Age Notes LastModified by Organization Details LastModified Time Brother Asthma [email or web address] Not available 05/10/2021 16:07:01 Maternal Aunt Disorder of thyroid gland [email or web address] Not available 2020 16:07:07 Maternal Grandmother Hypertensive disorder Not available 2020 16:07:20 Medical History Condition Response Allergies (Food, seasonal, environmental ) N Other N Drug/Latex Allergies/Reactions Y Blood Transfusion N Breast Cancer N Dermatologic Disorders N Lung Disease N Defects or Inherited Disease N Breast Problem N Gestational Diabetes N Hematologic disorders N Anesthesia Complications N History of STI Y Deep Vein Thrombosis N Polycystic ovary syndrome N Anxiety Disorder N Autoimmune disease N Arthritis N Polyps N Infertility N Acid Reflux (GERD) Y History of abnormal pap Y Cancer N Varicosities N Stroke N Neurologic/Epilepsy N Endometriosis N High Cholesterol N Fibromyalgia N Headaches N Kidney Disease N Heart Problems N Thyroid Problems N Kidney or Bladder Problems N GI Problems N Eating Disorder N Anemia N Art (IVF or FET) N Psychiatric Illness N Ovarian Cancer N Diabetes N Pulmonary (TB, Asthma) N Hepatitis/Liver Disease N No Past Medical History N Eczema N Urinary Tract Infection N Abuse/Domestic Violence N Asthma N Trauma/Violence N Depression/ depression N Heart Disease N Pre-Eclampsia N Hypertension Y Osteoporosis N Thrombophilias N Gynecological History Statement/Question Response Abnormal Pap Yes Date of Last Mammogram Date of LMP 02/18/2023 On BCP's at Conception? N Was last menstrual period normal Y STIs/STDs Yes HPV Vaccine N Colposcopy 06/16/2016 Current Control Method Partner Vas ectomy Age at First Child 21 Are cycles usually normal Y Sexually Active? Y Menses Monthly Y Date of DEXA bone scan Date of Last Pap Smear 05/11/2021 Sexual Problems? N Desired Control Method None LMP Approximate Obstetrics History GPAL:G 4 P 4 0 0 4 Type Value Full Term 4 Living 4 Total 4 Past Encounters Encounter ID Performer Location Encounter Start Date Encounter Closed Date Diagnosis/Indication Diagnosis SNOMED-CT Code Diagnosis ICD10 Code Diagnosis Note [id number] Mimi Butcher [facility] [address] [address] 05/11/2021 11:31:00 05/11/2021 17:11:54 test positive 848026812 Z32.01 Risk factors addressed: Tobacco Cessation, Safe Sexual Practices, environmen steven, work hazards, travel restrictio ns, seat belt use.Eat a health well balanced diet, avoid alcohol, tobacco, and street drugs.Enga ge in daily low impact exercise, avoid temperatur e extremes, and cat, rodent, and bird feces.Avoi d travel to areas where zika virus is a concern.Of fered cf/sma/nip t. Desires NIPT. Handouts given and discussed with patient. ildbirth classes recommende d.New OB sheet given.Will start baby aspirin daily.If previous , counseling .Pt verbalizes that she understand s the importance of above instructio ns.All questions were answered.P atient reminded to have annual well woman examinatio n and address [facility] . [id number] Selam Hanson [place] [address],[place] [address] 05/11/2021 11:32:36 05/11/2021 12:33:26 Uncertain viability of 724958196 O36.80X9 Z3A.09 Gestation period, 9 weeks 008544 Z3A.09 [id number] Navya Alegria [place] [address],[place] [address] 06/14/2021 10:44:59 06/14/2021 11:47:05 screening 143441649 Z36.82 [id number] Melany Mello MD [place] [address],[place] [address] 06/14/2021 10:57:09 06/14/2021 14:43:07 Routine care 797185341 Z34.91 Advanced m aternal age 157789739 O09.522 Past pregn umer history of gestational hypertension 009058972 Z87.59 History of loop electrosurgical excision procedure 2572943887 9102 Z98.890 Maternal o besity complicating , childbirth and the puerperium, antepartum 6629537141 07 O99.212 [id number] Mimi Garciamarina [place] [address],[place] [address] 07/13/2021 14:47:25 07/14/2021 11:28:41 Routine care 478948703 Z34.92 - induced hypertension 14251806 O13.9 [id number] Selam Hanson [place] [address],[place] [address] 07/13/2021 14:41:14 07/13/2021 15:36:18 History of loop electrosurgical excision procedure 7364672956 9102 Z98.890 Z3A.18 [id number] Mimi Butcher [place] [address],[place] [address] 07/28/2021 09:13:21 07/28/2021 11:20:00 Routine care 696412816 Z34.92 [id number] Navya Alegria [place] [address],[place] [address] 07/28/2021 09:13:07 07/28/2021 10:04:35 [id number] Selam Hanson [facility] [address],[place] [address] 07/28/2021 10:22:22 07/28/2021 10:35:28 screening 052588855 Z36.3 [id number] [address],[place] [address] 08/25/2021 14:02:40 08/25/2021 14:50:24 Routine care 818797797 Z34.92 [id number] Rain Jurado CNM [place] [address],[place] [address] 09/22/2021 09:06:11 09/22/2021 10:01:38 Routine care 068624590 Z34.92 [id number] Selam Hanson [place] [address],[place] [address] 09/22/2021 10:04:53 09/22/2021 11:39:41 Maternal obesity complicating , childbirth and the puerperium, antepartum 1817690228 07 O99.213 O09.523 O16.9 Z3A.28 [id number] Rain Jurado CNM [place] [address],[place] [address] 10/06/2021 09:38:53 10/06/2021 10:42:16 Routine care 620644921 Z34.92 Threatened premature labor - not delivered 875650770 O47.9 [id number] Rain Jurado CNM [place] [address],[place] [address] 10/20/2021 09:22:54 10/20/2021 10:31:59 Routine care 815528313 Z34.92 [id number] Rain Jurado [facility] [address],[place] [address] 11/03/2021 09:50:37 11/03/2021 11:00:33 [id number] [facility] [address],[place] [address] 11/10/2021 16:21:21 11/10/2021 17:39:33 Routine care 917934758 Z34.92 [id number] Selam Hanson [place] [address],[place] [address] 11/10/2021 16:21:45 11/10/2021 17:11:57 Advanced maternal age 566787693 O09.522 O99.213 Z3A.35 [id number] Rain Jurado [facility] [address],[place] [address] 11/17/2021 10:53:00 11/17/2021 11:21:21 Routine care 883306821 Z34.92 [id number] Rain Jurado [facility] [address],[place] [address] 11/24/2021 11:22:35 11/24/2021 14:48:19 Routine care 538400938 Z34.92 [id number] Mimi Butcher [place] [address],[place] [address] 12/02/2021 09:16:12 12/02/2021 10:17:13 Routine care 076310218 Z34.92 [id number] Rain Jurado [facility] [address],[place] [address] 01/05/2022 09:50:13 01/05/2022 10:40:30 care 887737952 Z39.2 [id number] Rain Jurado [facility] [address] [place] [address] 03/10/2023 13:46:26 03/10/2023 16:29:19 Gynecologic examination 41908660 Z01.419 Z11.51 mammogram order [facility] [place] [id number] Rain Jurado, ANNALISA [place] [address] [address] 09/30/2022 11:36:20 09/30/2022 12:37:11 Irregular periods 97670437 N92.6 check tsh, change pop, if continue plan pelvic us f/u wwe in 4 mo Health Concerns Section Related Observation LastModified by Organization Detai ls LastModified Time None Recorded Concern Status LastModified by Organization Details LastModified Time None Recorded Advance Directives Directive N: Payers Encounter Date Sequence Insurance Name Policy Number Policy Ko Covered Member ID Ko Member ID Guarantor Name 11/24/[address] [facility] ON OR AFTER 12/10/20 (MEDICAID REPLACEMENT - HMO) Kathie Danielson [id number] Kathie Danielson 12/02/[address] [facility] ON OR AFTER 12/10/20 (MEDICAID REPLACEMENT - HMO) Kathie Danielson [id number] Kathie Danielson 01/05/[address] [facility] ON OR AFTER 12/10/20 (MEDICAID REPLACEMENT - HMO) Kathie Danielson [id number] Kathie Danielson 09/30/[address] [facility] ON OR AFTER 12/10/20 (MEDICAID REPLACEMENT - HMO) Kathie Danielson [id number] Kathie Danielson 03/10/[address] [facility] ON OR AFTER 12/10/20 (MEDICAID REPLACEMENT - HMO) Kathie Danielson [id number] Kathie Danielson Notes Date Note Type Note Provider Name and Address Organization Details Recorded Time 01/05/2022 text/html VisitReported bypatient.Quality:N Context:complicatio ns of : none; complications of labor: none; laceration: ; complications: none; feeding choice: breast; good support from partner/family; resumed menstrual bleeding no Associated Symptoms:no abnormal bleeding; no vaginal discharge; no pelvic pain; laceration well healed; no constipation; no fecal incontinence; no dysuria; no urinary incontinence; no fever; no problems; no mastitis; normal moodNotes:doing well planning vasectomy Rain Jurado CNM [address], [place], [address], [facility] 01/05/2022 10:36:24 09/30/2022 text/html irregular cycles , heavy this last mo, 2 last mo, on slynd,having trouble with weight lossvapes dailyhusband vasectomypcp started her on lexapro for anxiety Rain Jurado CNM [address], [place], [address], [facility] 09/30/2022 12:36:21 03/10/2023 text/html Annual GYNReport ed bypatient.History:n o gynecologic complaints; no change in interval history Menstrual cycle:Normal menses Urinary symptoms:No hematuria; No incontinence Vulva:No genital lesion Vagina:Normal vaginal discharge Breast:No breast pain; No breast lump; No nipple discharge Current Contraception:Partn er had vasectomy Sexual complaints:No sexual complaints; No pain during intercourse; Normal libido Menopausal Symptoms:No menopausal symptoms; Normal vaginal lubrication Psychological symptoms:No depression; No anxiety; No PMDD Preventive measures:Encourage self breast examination; Encourage regular exercise; Encourage no tobacco useNotes:doing well moved back to [place], due for pap, first mammogram Rain Jurado CNM [address], [place], [address], [facility] 03/10/2023 15:55:37 OBGyn Episode Ob Episode Information Episode Created Date Number of Fetuses Patient Bloodtype Patient rh Status Prepregnancy Weight lbs Domestic Partner Domestic Partner Phone Father Name Diesel Engine Engineer Status 06/14/19 22 1 AB Positive 227 CLOSED Fetus Data First Name Last Name Admitted to NICU Weight (g) Sex Living Outcome Pediatric Complications Fetus ID Race Codes Race Delivery Type 3940.58 05 F true Full Term [id number] Vaginal Delivery Problems Problem Notes CF only negative 2017. Decli jessica CF/SMA?call commercial insulator for deliveryGBS NEG Problem Name Start Date End Date Resolution Snomed Code Not e Asthma in [id number] 9103 albuterol 1x/week History of loop electrosurgical excision procedure [id number] CL at 1 6 and 20w Maternal obesity complicating , childbirth and the puerperium, antepartum 812368288394 BMI 3 4- no ante testing needed Advanced maternal age 674975109 NIPT Past history of gestational hypertension [id number] with G3- on ASA,, baseline labs Darrel Calculation Initial Darrel Date Initial Exam Date Initial Exam Provider Initial Ultrasound Date Last Menstrual Period Date Ultra Sound Weeks Gestation 12/10/2021 06/14/2021 05/11/2021 9 Eighteen To Twenty Week Darrel Update Ultra Sound Date Fundal Height At Umbil Quickening Date Ultra Sound Latest Weeks Gestation Final Darrel Confirmed By Final Darrel Confirmed Date Final Darrel Date Ultra Sound Latest Days Gestation 0 [email or web address] 06/14/2021 12/11/19 22 0 Pre-erich Flowsheet Flowsheet Date 06/14/2021 Nielsen Score Blood Edema Fundus Height Fundus Units Glucose Ketones Leukocytes Nitrite Labor Signs Protein Cervic Dilation Cervic Effacement Cervic Station neg none none trace Type Weight in lbs Pre/Post Dialysis Refused Weight 228.843974174343 BP Diastolic BP Location Tested BP Systolic BP Type 82 130 Fetus Heart Rate Present A 150 Fetus Movement A No Comments Kathie is a 41yo at 14 w3d for care. ONly past complication was gHTN in her last starting at about 30 weeks, being delivered at 36. Is already taking ASA. Also has had LEEP in 2006, with no issues with cervix in prior pregnancies. AMA status- aware of risks, discussed again. NIPT and PNL toady. Will also do baseline PIH labs. NT wnl. Also has asthma, using albuterol aout once per week. Has not had flu shot- encouraged. Has had COVID vaccines, but not booster, is due, encouraged. CL with next visit and with anatomy US. Flowsheet Date 07/13/2021 Nielsen Score Blood Edema Fundus Height Fundus Units Glucose Ketones Leukocytes Nitrite Labor Signs Protein Cervic Dilation Cervic Effacement Cervic Station Type Weight in lbs Pre/Post Dialysis Refused BP Diastolic BP Location Tested BP Systolic BP Type Fetus Heart Rate Present Fetus Movement Comments Flowsheet Date 07/13/2021 Nielsen Score Blood Edema Fundus Height Fundus Units Glucose Ketones Leukocytes Nitrite Labor Signs Protein Cervic Dilation Cervic Effacement Cervic Station trace none trace Type Weight in lbs Pre/Post Dialysis Refused Weight 230.731578643101 BP Diastolic BP Location Tested BP Systolic BP Type 76 140 Fetus Heart Rate Present Fetus Movement A Yes Comments Doing well. Cervical length and gender ID today. Having a girl (Moreno)! Plan to return for routine visit and baseline ultrasound. History of GHTN. Will check baseline labs today. Flowsheet Date 07/28/2021 Nielsen Score Blood Edema Fundus Height Fundus Units Glucose Ketones Leukocytes Nitrite Labor Signs Protein Cervic Dilation Cervic Effacement Cervic Station Type Weight in lbs Pre/Post Dialysis Refused BP Diastolic BP Location Tested BP Systolic BP Type Fetus Heart Rate Present Fetus Movement Comments Flowsheet Date 07/28/2021 Nielsen Score Blood Edema Fundus Height Fundus Units Glucose Ketones Leukocytes Nitrite Labor Signs Protein Cervic Dilation Cervic Effacement Cervic Station Type Weight in lbs Pre/Post Dialysis Refused BP Diastolic BP Location Tested BP Systolic BP Type Fetus Heart Rate Present Fetus Movement Comments Flowsheet Date 07/28/2021 Nielsen Score Blood Edema Fundus Height Fundus Units Glucose Ketones Leukocytes Nitrite Labor Signs Protein Cervic Dilation Cervic Effacement Cervic Station trace none trace Type Weight in lbs Pre/Post Dialysis Refused Weight 234.884651002994 BP Diastolic BP Location Tested BP Systolic BP Type 71 116 Fetus Heart Rate Present Fetus Movement A Yes Comments Doing well. Baseline anatomy today. Plan to return in 4 weeks for routine ob. Flowsheet Date 08/25/2021 Nielsen Score Blood Edema Fundus Height Fundus Units Glucose Ketones Leukocytes Nitrite Labor Signs Protein Cervic Dilation Cervic Effacement Cervic Station neg trace 26 trace Type Weight in lbs Pre/Post Dialysis Refused Weight 238.864066126460 BP Diastolic BP Location Tested BP Systolic BP Type 72 117 Fetus Heart Rate Present A 132 Present Fetus Movement A Yes Comments PATIENT IS HAVING CONTRACTIO NS, SWELLING, DISCHARGE, NAUSEA AND HEARTBURN. taking meds for heartburn, precautions reviewed, plan gct next visit Flowsheet Date 09/22/2021 Nielsen Score Blood Edema Fundus Height Fundus Units Glucose Ketones Leukocytes Nitrite Labor Signs Protein Cervic Dilation Cervic Effacement Cervic Station trace trace trace Type Weight in lbs Pre/Post Dialysis Refused Weight 242.842338647607 BP Diastolic BP Location Tested BP Systolic BP Type 77 127 Fetus Heart Rate Present A 137 Present Fetus Movement A Yes Comments PATIENT STATES THAT HAVING P AIN, CONTRACTIONS, SPOTTING, DISCHARGE, CRAMPING AND SWELLING. spotting after days when she does a lot brown/red rare, occasional cntx, plan us today doing gct today f/u 2 weeks Flowsheet Date 09/22/2021 Nielsen Score Blood Edema Fundus Height Fundus Units Glucose Ketones Leukocytes Nitrite Labor Signs Protein Cervic Dilation Cervic Effacement Cervic Station Type Weight in lbs Pre/Post Dialysis Refused BP Diastolic BP Location Tested BP Systolic BP Type Fetus Heart Rate Present Fetus Movement Comments Flowsheet Date 10/06/2021 Nielsen Score Blood Edema Fundus Height Fundus Units Glucose Ketones Leukocytes Nitrite Labor Signs Protein Cervic Dilation Cervic Effacement Cervic Station neg trace 31 none trace Type Weight in lbs Pre/Post Dialysis Refused Weight 242.202928141398 BP Diastolic BP Location Tested BP Systolic BP Type 74 114 Fetus Heart Rate Present A 134 Present Fetus Movement A Yes Comments PATIENT IS PAIN, CONTRACTION S, DISCHARGE, SWELLING, AND NAUSEA. discussed ptl precautions cont procardia until 36 weeks, pelvic rest, f/u 2 weeks Flowsheet Date 10/20/2021 Nielsen Score Blood Edema Fundus Height Fundus Units Glucose Ketones Leukocytes Nitrite Labor Signs Protein Cervic Dilation Cervic Effacement Cervic Station neg trace 33 none trace Type Weight in lbs Pre/Post Dialysis Refused Weight 240.557176288867 BP Diastolic BP Location Tested BP Systolic BP Type 71 116 Fetus Heart Rate Present A 146 Present Fetus Movement A Yes Comments patient states that having s ome contractions, swelling, nausea, and heartburn. discussed precautions, still taking procardia xl 30 mg f/u 2 weeks Flowsheet Date 11/03/2021 Nielsen Score Blood Edema Fundus Height Fundus Units Glucose Ketones Leukocytes Nitrite Labor Signs Protein Cervic Dilation Cervic Effacement Cervic Station neg trace 36 none trace Type Weight in lbs Pre/Post Dialysis Refused Weight 236.939488725200 BP Diastolic BP Location Tested BP Systolic BP Type 68 110 Fetus Heart Rate Present A 145 Fetus Movement A Yes Comments patient states that having c ontractions, swelling, and nausea.doing well, precautions reviewed growth and gbs next visit f/u one week Flowsheet Date 11/10/2021 Nielsen Score Blood Edema Fundus Height Fundus Units Glucose Ketones Leukocytes Nitrite Labor Signs Protein Cervic Dilation Cervic Effacement Cervic Station Type Weight in lbs Pre/Post Dialysis Refused BP Diastolic BP Location Tested BP Systolic BP Type Fetus Heart Rate Present Fetus Movement Comments Flowsheet Date 11/10/2021 Nielsen Score Blood Edema Fundus Height Fundus Units Glucose Ketones Leukocytes Nitrite Labor Signs Protein Cervic Dilation Cervic Effacement Cervic Station 1cm 10% -3 Type Weight in lbs Pre/Post Dialysis Refused BP Diastolic BP Location Tested BP Systolic BP Type Fetus Heart Rate Present Fetus Movement Comments doing well ok to stop procar erik monday, precautions reviewed f/u one week EFW 54% Flowsheet Date 11/17/2021 Nielsen Score Blood Edema Fundus Height Fundus Units Glucose Ketones Leukocytes Nitrite Labor Signs Protein Cervic Dilation Cervic Effacement Cervic Station trace trace none trace 3cm 60% -2 Type Weight in lbs Pre/Post Dialysis Refused Weight 239.198957193743 BP Diastolic BP Location Tested BP Systolic BP Type 70 112 Fetus Heart Rate Present Fetus Movement A Yes Comments patient states that having h eadache, contractions, some bleeding and swelling. bleeding precautions reviewed, suspect from multiple checks at hospital and cervical dilation f/u one week Flowsheet Date 11/24/2021 Nielsen Score Blood Edema Fundus Height Fundus Units Glucose Ketones Leukocytes Nitrite Labor Signs Protein Cervic Dilation Cervic Effacement Cervic Station neg none none trace 2cm 50% -3 Type Weight in lbs Pre/Post Dialysis Refused Weight 239.411454946287 BP Diastolic BP Location Tested BP Systolic BP Type 72 126 Fetus Heart Rate Present A 145 Present Fetus Movement A Yes Comments patient is having contractio ns, discharge, nausea, gas, cramping, back and hip pain. reviewed precautions seen over weekend for asthma doing well now. cant sleep due to contractions and pressure ambien 5mg rx given Flowsheet Date 12/02/2021 Nielsen Score Blood Edema Fundus Height Fundus Units Glucose Ketones Leukocytes Nitrite Labor Signs Protein Cervic Dilation Cervic Effacement Cervic Station neg trace 38 trace trace Type Weight in lbs Pre/Post Dialysis Refused Weight 240.233326096602 BP Diastolic BP Location Tested BP Systolic BP Type 77 130 Fetus Heart Rate Present A 155 Fetus Movement A Yes Comments Doing well. No contractions. MIL on Monday. Has requested Rain or Mimi for delivery. Labor precautions. Flowsheet Date 01/05/2022 Nielsen Score Blood Edema Fundus Height Fundus Units Glucose Ketones Leukocytes Nitrite Labor Signs Protein Cervic Dilation Cervic Effacement Cervic Station Type Weight in lbs Pre/Post Dialysis Refused Weight 220.722888976463 BP Diastolic BP Location Tested BP Systolic BP Type 74 117 Fetus Heart Rate Present Fetus Movement Comments Menstrual History Last Menstrual Date Menses Monthly On Bcp Conception Prior Menses Frequency Hcg Plus Date Menarche Onset Age Genetic Screening And Infection History Question Response Note Mental Retardation/Autism false Patient's Age Will Be 35 Years Or Older At Estim ated Date of Delivery true Thalassemia (Amharic, Micronesian, Mediterranean, Or Background): MCV < 80 false Neural Tube Defect (Meningomyelocele, Spina Bifi da, Or Anencephaly) false Congenital Heart Defect false Down Syndrome false Den-Sachs (eg, Yazdanism, Cajun, Namibian-[place]) f alse Mikayla Disease false Sickle Cell Disease Or Trait () false Hemophilia Or Other Blood Disorders false Muscular Dystrophy false Cystic Fibrosis false Rolette's Chorea false Intellectual Disability/Autism false If Yes, Was Person Tested For Fragile X? false Other Inherited Genetic Or Chromosomal Disorder false Maternal Metabolic Disorder (eg, Type 1 Diabetes , PKU) false Patient Or Baby's Father Had A Child With Defects Not Listed Above false Recurrent Loss, Or A Stillbirth false Medications (including Suppl ements, Vitamins, Herbs, OTC Drugs), Illicit/Recreational Drugs, Alcohol false If Yes, Agent(s) And Strength/Dosage false Any Other Genetic History false Live With Someone With TB Or Exposed To TB false Patient Or Partner Has History Of Genital Herpes false Rash Or Viral Illness Since Last Menstrual Perio d false History Of STD, Gonorrhea, Chlamydia, HPV, Syphi lis false Other Infection History false History of HIV false History of Hepatitis false Prior GBS-infected child false Hemoglobinopathy Or Carrier false Other Structural Defect false Recent Travel History Outside of Country false Delivery Information Delivery Date Delivery Type Labor Anesthesia Weeks Gestation Incision Type Labor Labor Length Hrs Delivered By Post Complications Tubal Sterilization Discharge Date Comments 2 Induce d Regional-Ep idural 39.3 Rain [place] CNM AMA & Maternal obesity Discharge Information Feeding Method Contraceptive Method Maternal HG B and HCT Levels Breast Ob Episode Information Episode Created Date Number of Fetuses Patient Bloodtype Patient rh Status Prepregnancy Weight lbs Domestic Partner Domestic Partner Phone Father Name Diesel Engine Engineer Status 06/14/19 22 1 CLOSED Fetus Data First Name Last Name Admitted to NICU Weight (g) Sex Living Outcome Pediatric Complications Fetus ID Race Codes Race Delivery Type 3883.65 4704 M Full Term [id number] Vaginal Delivery Darrel Calculation Initial Darrel Date Initial Exam Date Initial Exam Provider Initial Ultrasound Date Last Menstrual Period Date Ultra Sound Weeks Gestation 0 Eighteen To Twenty Week Darrel Update Ultra Sound Date Fundal Height At Umbil Quickening Date Ultra Sound Latest Weeks Gestation Final Darrel Confirmed By Final Darrel Confirmed Date Final Darrel Date Ultra Sound Latest Days Gestation 0 0 Menstrual History Last Menstrual Date Menses Monthly On Bcp Conception Prior Menses Frequency Hcg Plus Date Menarche Onset Age Delivery Information Delivery Date Delivery Type Labor Anesthesia Weeks Gestation Incision Type Labor Labor Length Hrs Delivered By Post Complications Tubal Sterilization Discharge Date Comments 1 39 Discharge Information Feeding Method Contraceptive Method Maternal HG B and HCT Levels Ob Episode Information Episode Created Date Number of Fetuses Patient Bloodtype Patient rh Status Prepregnancy Weight lbs Domestic Partner Domestic Partner Phone Father Name Diesel Engine Engineer Status 06/14/19 22 1 CLOSED Fetus Data First Name Last Name Admitted to NICU Weight (g) Sex Living Outcome Pediatric Complications Fetus ID Race Codes Race Delivery Type 4025.62 9 M Full Term [id number] Vaginal Delivery Darrel Calculation Initial Darrel Date Initial Exam Date Initial Exam Provider Initial Ultrasound Date Last Menstrual Period Date Ultra Sound Weeks Gestation 0 Eighteen To Twenty Week Darrel Update Ultra Sound Date Fundal Height At Umbil Quickening Date Ultra Sound Latest Weeks Gestation Final Darrel Confirmed By Final Darrel Confirmed Date Final Darrel Date Ultra Sound Latest Days Gestation 0 0 Menstrual History Last Menstrual Date Menses Monthly On Bcp Conception Prior Menses Frequency Hcg Plus Date Menarche Onset Age Delivery Information Delivery Date Delivery Type Labor Anesthesia Weeks Gestation Incision Type Labor Labor Length Hrs Delivered By Post Complications Tubal Sterilization Discharge Date Comments 2 42 Discharge Information Feeding Method Contraceptive Method Maternal HG B and HCT Levels Ob Episode Information Episode Created Date Number of Fetuses Patient Bloodtype Patient rh Status Prepregnancy Weight lbs Domestic Partner Domestic Partner Phone Father Name Diesel Engine Engineer Status 05/11/20 21 1 CLOSED Fetus Data First Name Last Name Admitted to NICU Weight (g) Sex Living Outcome Pediatric Complications Fetus ID Race Codes Race Delivery Type 3940.35 3704 M Full Term [id number] Vaginal Delivery Darrel Calculation Initial Darrel Date Initial Exam Date Initial Exam Provider Initial Ultrasound Date Last Menstrual Period Date Ultra Sound Weeks Gestation 0 Eighteen To Twenty Week Darrel Update Ultra Sound Date Fundal Height At Umbil Quickening Date Ultra Sound Latest Weeks Gestation Final Darrel Confirmed By Final Darrel Confirmed Date Final Darrel Date Ultra Sound Latest Days Gestation 0 0 Menstrual History Last Menstrual Date Menses Monthly On Bcp Conception Prior Menses Frequency Hcg Plus Date Menarche Onset Age Delivery Information Delivery Date Delivery Type Labor Anesthesia Weeks Gestation Incision Type Labor Labor Length Hrs Delivered By Post Complications Tubal Sterilization Discharge Date Comments 9 38 ghtn Discharge Information Feeding Method Contraceptive Method Maternal HG B and HCT Levels
--- OUTSIDE RECORDS SUMMARY | 2024-07-11 22:58 | XMS_ITS | Clinical Summary ---
Author Organization [facility] Address [address] [place] [address] Phone Care Team Providers Care Timber Harvester Operator Name Role Phone Lori Smith APRN, CNP Primary Care Pro vider Allergies No known active allergies Medications albuterol 108 (90 Base) MCG/ACT Aerosol Solution take 2 Puffs by inhalation every 6 hours as needed (Shortness of breath). 8 g Active Social History Tobacco Use Types Packs/Day Years Used Date Smoking Tobacco: Never Smokeless Tobacco: Never Alcohol Use Standard Drinks/Week Comments Never 0 (1 standard drink = 0.6 oz pur e alcohol) Comments Unknown Sex and Gender Information Value Date Recorded Sex Assigned at Not on file Legal Sex Female 1:09 PM RECORD TESTER Gender Identity Not on file Sexual Orientation Not on file Last Filed Vital Signs Vital Sign Reading Time Taken Comments Blood Pressure 119/82 05/19/2021 5:15 PM RECORD TESTER Pulse 79 05/19/2021 5:15 PM RECORD TESTER Temperature 36.9 ??C (98.5 ??F) 05/19/2021 1:42 PM CS T Respiratory Rate 16 05/19/2021 5:15 PM RECORD TESTER Oxygen Saturation 100% 05/19/2021 5:15 PM RECORD TESTER Inhaled Oxygen Concentration - - Weight 103 kg (227 lb) 05/19/2021 1:42 PM RECORD TESTER Height 172.7 cm (5' 8 ) 05/19/2021 1:42 PM RECORD TESTER Body Mass Index 34.52 05/19/2021 1:42 PM RECORD TESTER Plan of Treatment Health Maintenance Due Date Last Done Comments Hepatitis C Virus (HCV) Screening 1982 Hepatitis B Immunization (1 of 3 - 19+ 3-dose series) 2001 Pap Smear 2003 Cervical Cancer Screening (CCS) 2012 HPV/Cotest 2012 Discussion re Starting/Frequency of Mammograms 2022 Influenza Immunization (#1) 2024 SARS-COV-2 Immunization ( season) 2024 02/11/2021, 01/21/2021 Respiratory Syncytial Virus (RSV) Immunization (Adult) (1 - 1-dose 75+ series) 2057 DTaP/Tdap/Td Immunization Discontinued 2018, 04/25/2016 TdaP Immunization Completed 10/16/2018, 04/25/2016 Meningococcal Immunization (ACWY) Aged Out No longer eligible based on patient's age to complete this topic Pneumococcal Immunization Combined Aged Out No longer eligible based on patient's age to complete this topic Rotavirus Immunization Aged Out No lo nger eligible based on patient's age to complete this topic [place] [address] Care Teams Timber Harvester Operator Relationship Specialty Start Date End Date Lori Smith APRN, LEGAL EDITOR [address] [place] [address] PCP - General Certified Nurse Practitioner 05/19/21
--- OUTSIDE RECORDS SUMMARY | 2024-07-11 22:59 | XMS_ITS | Data Portability ---
Author Organization [place] [facility], Main Office Address [address] [place] [address] Assessment Encounter Date Assessment Date Assessment LastModified by Organization Details LastModified Time 10/31/2022 10/31/2022 Blood work at 6 mo fu, aprox April 2023. Not available 10/31/2022 09:24:51 Plan of Treatment Reminders Order Date Submit Date Provider Last Modified By Organization Details Last Modified Time Details Appointments None record ed. Lab None record ed. Referral None record ed. Procedures None record ed. Surgeries None record ed. Imaging None record ed. Medication Orders None record ed. Patient TargetsNo targets recorded. Patient Instructions Encounter Date Encounter Id Patient Instructions Last Modified By Organization Details Last Modified Time 10/31/2022 [id number] Fu Insomnia, weight, labs in 6 mo. Not available 10/31/2022 09:25:17 Reason for Referral None Reported. Problems Name Problem SNOMED Code Status Onset Date Resolution Date Notes Provider Name and Address Organization Details Recorded Time Metatarsalgia 55785589 Active Not Available [facility] 3 06:46:24 Injury of knee 863406317 Active Not Available [facility] 3 06:46:24 Pain in throat 931835227 Active Not Available [facility] 3 06:46:24 Prepatellar bursitis 69932049 Active Not Available [facility] 3 06:46:24 Wrist joint pain 243052627 Active Not Available [facility] 3 06:46:24 Traumatic hematoma 861326197 Active Not Available [facility] 3 06:46:25 Tingling of skin 746736910 Active 2016 Not Available [facility] 3 06:46:25 Knee pain Active Not Available [facility] 3 06:46:25 Depressive disorder 99931341 Active 2022 Not Available [facility] 3 06:46:25 Sinusitis 22875309 Active Not Available [facility] 3 06:46:25 Fever 446160994 Active Not Available [facility] 3 06:46:25 Shoulder pain 88090087 Active 2016 Not Available [facility] 3 06:46:25 Anxiety 21109253 Active Not Available [facility] 3 06:46:25 Urinary tract infectious disease 96568267 Active 2016 Not Available [facility] 3 06:46:25 Posterior rhinorrhea 26885286 Active Not Available [facility] 3 06:46:26 Insomnia 895288710 Active 2022 Lori Smith NP [address], [place] [address], [place], [address] , [employer] [facility] 3 08:28:34 Headache 79300204 Active 2022 Lori Smith NP [address], [address], [place], [address] , [employer] [facility] 3 08:28:56 Overweight 491186081 Active 2022 Lori Smith NP [address], [address], [place], [address] , [employer] [facility] 3 09:24:08 Problem Notes None recorded. Procedures Surgical History Date Name Laterality Status Provider Name and Address Organization Details Recorded Time 01/08/20 cholecystectomy completed Not Available [facility] 08/10/2022 06:40:24 06/12/19 Gallbladder Surgery completed Not Available [facility] 08/10/2022 06:40:24 Imaging Results None recorded. Procedure Notes None recorded. Medical Equipment None Reported. Allergies Allergen ID Allergen Name Allergen Category Reaction Reaction Severity Criticality Documentation Date Start Date Code Code System Note Provider Name and Address Organization Details Recorded Time 81602 MetroGel medicatio n Not available Not available Not available 08/10/2022 9 RxNorm Not Available [facility] 3 06:52:55 Medications Name Sig Start Date Stop Date Status Note LastModified by Organization Details LastModified Time Singulair 10 mg tablet Take 1 tablet every day by oral route in the evening for 30 days. 12/19 completed Not Available Not Available Not Available nifedipin e ER 30 mg tablet,ex tended release 24 hr TAKE 1 TABLET BY MOUTH EVERY DAY 04/14 completed Not Available Not Available Not Available cyclobenz aprine 10 mg tablet 03/16 completed Not Available Not Available Not Available amoxicill in 500 mg capsule TK 1 C PO Q 12 H FOR 10 DAYS 11/21 completed Not Available Not Available Not Available trazodone 50 mg tablet Take 1 tablet every day by oral route. active Not Available Not Available No t Available azithromy otf 250 mg tablet TAKE 2 TABLETS (500 MG) BY ORAL ROUTE ONCE DAILY FOR 1 DAY THEN 1 TABLET (250 MG) BY ORAL ROUTE ONCE DAILY FOR 4 DAYS 06/16 completed Not Available Not Available Not Available Lidocaine Viscous 2 % mucosal solution Take 5 mL every 4-6 hours by oral route as needed for 15 days. 12/04 completed Not Available Not Available Not Available fluconazo le 150 mg tablet TAKE 1 TABLET BY MOUTH IMMEDIAT DANTE AND TAKE 1 TABLET IN 48 HOURS 04/14 completed Not Available Not Available Not Available benzonata te 200 mg capsule TK ONE C PO TID 11/21 completed Not Available Not Available Not Available hydrocodo ne 5 mg-acetam inophen 325 mg tablet TAKE 1 TABLET BY MOUTH EVERY 6 HOURS NEEDED FOR PAIN 04/14 completed Not Available Not Available Not Available ondansetr on HCl 4 mg tablet TAKE 1 TABLET BY MOUTH EVERY 4 TO 6 HOURS NEEDED FOR NAUSEA 06/16 completed Not Available Not Available Not Available prednison e 20 mg tablet TAKE ONE TABLET BY MOUTH TWO TIMES A DAY FOR 5 DAYS 04/14 completed Not Available Not Available Not Available Tubersol 5 tub. unit/0.1 mL intraderm al injection solution Inject 0.1 mL every day by intrader mal route for 1 day. 06/16 completed Not Available Not Available Not Available penicilli n V potassium 500 mg tablet Take 1 tablet every 8 hours by oral route with meals for 10 days. 11/29 completed Not Available Not Available Not Available nifedipin e ER 30 mg tablet,ex tended release TAKE 1 TABLET BY MOUTH EVERY MORNING 04/14 completed Not Available Not Available Not Available Tamiflu 75 mg capsule active Not Available Not Available Not Available butalbita l-acetami nophen-ca ffeine 50 mg-325 mg-40 mg tablet TAKE ONE TABLET EVERY FOUR TO SIX HOURS NEEDED. MAX 6 TABLETS IN 24 HOURS 04/14 completed Not Available Not Available Not Available amoxicill in 500 mg tablet Take 1 tablet every 12 hours by oral route for 10 days. 11/21 completed Not Available Not Available Not Available ondansetr on 8 mg disintegr ating tablet Place 1 tablet every 8 hours by translin gual route as needed for 5 days. 04/14 completed Not Available Not Available Not Available terconazo le 80 mg vaginal supposito ry IVB FOR 3 NIGHTS 04/14 completed Not Available Not Available Not Available Mobic 15 mg tablet Take 1 tablet every day by oral route in the morning for 30 days. 02/23 completed Not Available Not Available Not Available alprazola m 0.5 mg tablet Take 1 tablet every day by oral route as needed. active Not Available Not Available No t Available Microgest in FE 07/01 (28) 1 mg-20 mcg (21)/75 mg (7) tablet TK 1 T PO QD 04/14 completed Not Available Not Available Not Available amoxicill in 875 mg tablet TK 1 T PO Q 12 H 04/14 completed Not Available Not Available Not Available alprazola m 0.25 mg tablet TK 1 T PO daily prn active Not Available Not Available No t Available methocarb scott 750 mg tablet Take 1 tablet every 6-8 hours by oral route. active Left shoulder pain Not Available Not Available Not Available prednison e 50 mg tablet TAKE 1 TABLET BY MOUTH DAILY FOR 5 DAYS 04/14 completed Not Available Not Available Not Available clindamyc in 2 % vaginal cream IVB FOR 7 DAYS 04/14 completed Not Available Not Available Not Available zolpidem 5 mg tablet TAKE 1 TABLET BY MOUTH EVERY DAY AT BEDTIME 04/14 completed Not Available Not Available Not Available methylpre dnisolone 4 mg tablets in a dose pack FOLLOW PACKAGE DIRECTIO NS 06/16 completed Not Available Not Available Not Available albuterol sulfate HFA 90 mcg/actua tion aerosol inhaler INHALE 2 PUFFS BY MOUTH EVERY 6 HOURS NEEDED FOR SHORTNES S OF BREATH active Not Available Not Available No t Available norethiana paula grosse (contrace ptive) 0.35 mg tablet TK 1 T PO QD 06/16 completed Not Available Not Available Not Available sertralin e 50 mg tablet TAKE 1& 1/2 TABLETS BY MOUTH EVERY DAY 04/14 completed Not Available Not Available Not Available naproxen 500 mg tablet Take 1 tablet twice a day by oral route with meals. 03/16 completed Not Available Not Available Not Available amoxicill in 500 mg-potass ium clavulana te 125 mg tablet TAKE 1 TABLET BY MOUTH EVERY 12 HOURS FOR 7 DAYS 06/16 completed Not Available Not Available Not Available Tylenol Extra Strength 500 mg tablet Take 2 tablets every 6 hours by oral route with meals for 15 days. 12/04 completed Not Available Not Available Not Available Bactrim DS 800 mg-160 mg tablet Take 1 tablet every 12 hours by oral route for 5 days. 12/16 completed Not Available Not Available Not Available azithromy otf 500 mg tablet TK 2 TS PO 1 TIME 06/30 completed Not Available Not Available Not Available escitalop jennifer 10 mg tablet TAKE 1 TABLET BY MOUTH EVERY DAY 08/04 completed Not Available Not Available Not Available Relpax 40 mg tablet 1 tab po x 1 dose at start of migraine . May repeat in 2 hours x 1 dose if symptoms persist. 04/14 completed Not Available Not Available Not Available escitalop jennifer 5 mg tablet Take 1 tablet every day by oral route. 10/31 completed Not Available Not Available Not Available nitrofura ntoin monohydra te/macroc rystals 100 mg capsule TK 1 C PO Q 12 H WF 04/14 completed Not Available Not Available Not Available acetamino phen-caff eine 50 2021 active Not Available Not Available Not Avai lable MICHAEL (28) 3 mg-0.02 mg tablet Take 1 tablet every day by oral route. 2013 active Not Available Not Available Not Avai lable Symbicort 160 mcg-4.5 mcg/actua tion HFA aerosol inhaler INHALE 1 PUFF BY MOUTH TWICE DAILY active Not Available Not Available No t Available Caziant (28) 0.1 mg/0.125 mg/0.15 mg-25 mcg tablet TK 1 T PO QD. active Not Available Not Available No t Available USINE IO 1.5 billion cell capsule Take 1 capsule every day by oral route in the morning for 30 days. 12/19 completed Not Available Not Available Not Available Slynd 4 mg (28) tablet TAKE 1 TABLET BY MOUTH EVERY DAY active Not Available Not Available No t Available Vitals Date Recorded Body mass index (BMI) Body height Oxygen saturation Oxygen saturation in Arterial blood by Pulse oximetry Heart rate Respiratory rate Body temperature Body weight Systolic blood pressure Diastolic blood pressure Provider Name and Address Organization Details Last Updated DateTime 3 31.9 kg/m2 175.26 cm 98 % 98 % 78 /min 16 /min 98.4 [degF] 41457.9 5 g 122 mm[Hg] 84 mm[Hg] Not Available [facility] 3 06:45:21 Date Recorded Body mass index (BMI) Body height Oxygen saturation Oxygen saturation in Arterial blood by Pulse oximetry Heart rate Respiratory rate Body temperature Body weight Systolic blood pressure Diastolic blood pressure Provider Name and Address Organization Details Last Updated DateTime 3 31.9 kg/m2 175.26 cm 97 % 97 % 76 /min 16 /min 97.7 [degF] 76482.2 3 g 108 mm[Hg] 84 mm[Hg] Not Available [facility] 3 06:45:21 Date Recorded Body height Body temperature Provider N caleb and Address Organization Details Last Updated DateTime 05/19/2022 175.26 cm 100.6 [degF] Not Available [facility] 08/10/2022 06:45:25 Date Recorded Body height Body mass index (BMI) Body weight Body temperature Heart rate Respiratory rate Oxygen saturation Oxygen saturation in Arterial blood by Pulse oximetry Systolic blood pressure Diastolic blood pressure Provider Name and Address Organization Details Last Updated DateTime 3 175.26 cm 33.4 kg/m2 363900. 93 g 96.7 [degF] 72 /min 16 /min 97 % 97 % 122 mm[Hg] 80 mm[Hg] Lori Machado RN [place] [facility] 09:02:15 Social History Question Answer Notes LastModified by Organizat ion Details LastModified Time Tobacco Smoking Status Never Smoker Not Available [facility] 08/10/2022 06:40:17 Do You Have An Advance Directive? No Information not available 10/31/2022 What Is Your Level Of Alcohol Consumption? Occasional [id number] Information not available 08/10/2022 Is Blood Transfusion Acceptable In An Emergency? Yes Information not available 10/31/2022 What Is Your Level Of Caffeine Consumption? Heavy [id number] Information not available 08/10/2022 What Is Your Code Status? Full Code Information not available 10/31/2022 In The 14 Days Before Symptom Onset, Have You Had Close Contact With A Laboratory-confir med COVID-19 While That Case Was Ill? No [id number] Information not available 08/10/2022 In The 14 Days Before Symptom Onset, Have You Had Close Contact With A Person Who Is Under Investigation For COVID-19 While That Person Was Ill? 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 20 Information not available 10/31/2022 Have There Been Any Changes To Your Family Or Social Situation? No [id number] Information not available 08/10/2022 What Is The Fluoride Status Of Your Home? Fluoridated [id number].[id number] Information not available 08/10/2022 Do You Use Insect Repellent Routinely? Yes Information not available 10/31/2022 Where Do You Live? [place]House [id number] Information not available 08/10/2022 Do You Have A Medical Power Of Manager Document? No Information not available 10/31/2022 How Many Children Do You Have? 4 Information not available 10/31/2022 Do You Have Any Pets? Yes [id number] Information not available 08/10/2022 What Is Your Relationship Status? [id number] Information not available 08/10/2022 Do You Use Your Seat Belt Or Car Seat Routinely? Yes Information not available 10/31/2022 Do You Have Smoke And Carbon Monoxide Detectors In Your Home? Yes [id number].[id number] Information not available 08/10/2022 Are You Passively Exposed To Smoke? No [id number] Information not available 08/10/2022 Are There Any Smokers In Your House? No [id number].[id number] Information not available 08/10/2022 Do You Participate In Social [employer]? Yes [id number].[id number] Information not available 08/10/2022 What Types Of Sporting Activities Do You Participate In? 5 Information not available 10/31/2022 Do You Feel Stressed (tense, Restless, Nervous, Or Anxious, Or Unable To Sleep At Night)? [id number] Information not available 10/31/2022 Do You Use Any Illicit Or Recreational Drugs? No MIGRATION.[id number] Information not available 08/10/2022 Do You Use Sunscreen Routinely? No Information not available 10/31/2022 Have You Recently Traveled Abroad? No [id number].[id number] Information not available 08/10/2022 Are You Currently In School? No [id number] Information not available 08/10/2022 Do You Have Any Dietary Restrictions? No [id number].12603 [id number] Information not available 08/10/2022 Sex: Female Functional Status Question Answer Note LastModified by Organization D etails LastModified Time What is your exercise level? Moderate Information not available 10/31/2022 Mental Status None recorded. Family History Relationship Description Onset Age of this Age Resolved Age Notes LastModified by Organization Details LastModified Time Father No current problems or disability [id number] Not available 08/10/2022 06:40:28 Mother No current problems or disability [id number] Not available 08/10/2022 06:40:28 Medical History No medical history recorded. Gynecological History Statement/Question Response Abnormal Pap Y Flow Moderate Date of LMP 10/20/2022 STIs/STDs N Date of Last Pap 06/12/2020 Duration of Flow (days) 5 Most Recent Mammogram Age at Menarche 15 Breast Problems NO Date of Last Colonoscopy Frequency of Cycle (Q days) 29 Most Recent Bone Density Menses Monthly Y Date of Last Pap Smear Discharge No Obstetrics History GPAL:G 4 P 0 0 0 0 Immunizations Vaccine Type Date Status Note Provider Nam e and Address Organization Details Recorded Time Tdap 04/25/2016 completed Not Available [facility] 08/10/2022 06:52:47 Past Encounters Encounter ID Performer Location Encounter Start Date Encounter Closed Date Diagnosis/Indication Diagnosis SNOMED-CT Code Diagnosis ICD10 Code Diagnosis Note [id number] [address] [address] 04/14/2022 00:00:00 04/14/2022 15:46:[id number] [address] 04/15/2022 00:00:00 04/15/2022 14:54:[id number] [address] 05/19/2022 00:00:00 05/19/2022 09:24:[id number] [address] 06/16/2022 00:00:00 06/16/2022 17:14:[id number] [address] 08/04/2022 00:00:00 08/04/2022 09:56:18 [id number] Lori Smith NP [address] [address] 10/31/2022 08:49:53 10/31/2022 09:33:37 Depressive disorder 62198363 F32.A Stable on no meds for the past 2 weeks. Anxiety 59495957 F41.9 Stable on no meds for the past 2 weeks. Insomnia 580211194 G47.0 0 Trazodone 50 mg po daily. Headache 80404169 R51.9 Overweight 081207877 E66 .3 Work on diet and exercise. [employer] doesn't cover assistance from medication s.Pt to look in to weight watchers. Health Concerns Section Related Observation LastModified by Organization Detai ls LastModified Time None Recorded Concern Status LastModified by Organization Details LastModified Time None Recorded Advance Directives Directive N: Payers Encounter Date Sequence Insurance Name Policy Number Policy Ko Covered Member ID Ko Member ID Guarantor Name 10/31/2022 1 [facility] - DOS ON OR AFTER 20 (MEDICAID REPLACEMENT - HMO) Kathie Danielson [id number] Kathie Danielson Notes Date Note Type Note Provider Name and Address Organization Details Recorded Time 10/31/2022 text/html Here for 3 mo fu Insomnia- Trazodone working well.anxiety/Dep ression- Stable on no meds. Came off the lexapro.Weight- Hasn't been able to lose wiley. Stopped bread. Chicken and veggie for dinner and lunch. Popcorn at night. Yogurt and banana for breakfast. No ETOH.Water, coffee, and unsweet tea.Quantity of food is decent portion size.Walks the dogs and kids 1 mile twice daily. [place]. Thyroid was just checked at [facility] appt in September- was normal. Lori Smith NP [address], [facility] [address], [place], [address], [facility] [employer] 10/31/2022 09:30:54 OBGyn Episode No OBEpisode recorded.
--- OUTSIDE RECORDS SUMMARY | 2024-07-11 22:59 | XMS_ITS | Clinical Summary ---
Author Organization [facility] Address [address] [place] [address]. 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 Name Role Phone Unavailable Primary Care Provider Unavailabl e Social History Tobacco Use Types Packs/Day Years Used Date Smoking Tobacco: Never Assessed Comments Unknown Sex and Gender Information Value Date Recorded Sex Assigned at Not on file Legal Sex Female 8:30 PM CDT Gender Identity Not on file Sexual Orientation Not on file Plan of Treatment Health Maintenance Due Date Last Done Comments Cervical Cancer Screening Pa p Smear (Age 30 to 64) Every 3 Years 1982 Annual Physical 1985 Hepatitis C 2000 DTaP, Tdap and Td Vaccines ( 1 - Tdap) 2001 Hepatitis B Vaccines (1 of 3 - 19+ 3-dose series) 2001 Cervical Cancer Screening Pa p with HPV Testing (Age 30 to 64) Every 5 Years 2012 Cervical Cancer Screening with HPV 2012 Mammogram Screening 2022 COVID-19 Vaccine (2023-2 5 season) 2024 Influenza Adult (#1) 2024 HPV Vaccines Aged Out No longer eligi ble based on patient's age to complete this topic Meningococcal B Vaccine Aged Out No l onger eligible based on patient's age to complete this topic Meningococcal Vaccine Aged Out No robin servando eligible based on patient's age to complete this topic Pneumococcal Vaccine: Pediat rics (0 to 5 Years) and At-Risk Patients (6 to 64 Years) Aged Out No longer eligible b ased on patient's age to complete this topic RSV Immunizations Under 20 Months Aged Out No longer eligible based on patient's age to complete this topic
[2024-07-11 23:17] LABS: Basophils Percent Auto 0.3 % (0.2-1.2); Eosinophils Absolute Auto 0.2 K/mm3 (0-0.3); Eosinophils Percent Auto 3.7 % (0-4.4); Hematocrit 39.6 % (37.0-47.0); Hemoglobin 13.1 g/dL (12.0-15.0); Immature Granulocyte Absolute 0.02 K/mm3 (0.00-0.031); Immature Granulocyte Percent A 0.3 % (0-0.5); Lymphocytes Absolute Auto 1.77 K/mm3 (0.9-3.2); Lymphocytes Percent Auto 28.3 % (18.3-44.2); Mean Corpuscular HGB Conc 33.1 g/dl (32-36); Mean Corpuscular Hemoglobin 28.6 pg (26-34); Mean Corpuscular Volume 86.5 fl (80-100); Monocytes Absolute Auto 0.4 K/mm3 (0.1-0.6); Monocytes Percent Auto 6.9 % (2.6-8.5); Neutrophils Absolute Auto 3.8 K/mm3 (1.3-6.7); Neutrophils Percent Auto 60.5 % (45.5-73.1); Platelet Count Result 220 k/mm3 (150-375); Red Blood Count 4.58 M/mm3 (4.2-5.4); Red Cell Distribution Width 13.1 % (11.5-14.5); White Blood Count 6.3 K/mm3 (4.5-10.0)
[2024-07-11 23:31] LABS: Alanine Aminotransferase 14 U/L (6-35); Albumin Level 4.4 g/dL (3.5-5.1); Alkaline Phosphatase 74 U/L (38-126); Anion Gap 10 mmol/L (4-12); Aspartate Amino Transferase 18 U/L (14-36); Bilirubin,Total 0.8 mg/dL (0.2-1.3); Blood Urea Nitrogen 7 mg/dL (7-17); Calcium 9.6 mg/dL (8.4-10.2); Carbon Dioxide 26 mmol/L (22-30); Chloride 102 mmol/L (98-107); Estimated Glomerular Filt Rate > 60; Glucose 93 mg/dL (65-110); Lipase 168 U/L (23-300); Potassium 3.6 mmol/L (3.4-5.0); Sodium 138 mmol/L (137-145)
[2024-07-11 23:58] LABS: Add Urine Microscopic? YES; Appearance Urine Cloudy (Clear); Bacteria Urine None Seen /hpf; Bilirubin Urine Negative (Negative); Blood Urine Negative (Negative); Color Urine Yellow (Yellow); Glucose Urine UA Negative (Negative); Ketones Urine Negative (Negative); Leukocyte Esterase Ur 2+ LEU/UL (Negative); Need Manual Microscopic Reviewed; Nitrate Urine Negative (Negative); Non Pathogenic Casts 0-2; Protein Urine Negative (Negative); RBC Urine 0-2 /hpf (0-2); Specific Grav Ur 1.002 (1.001-1.035); Squamous Epithelial Cell Urine Occasional /hpf (Few); Urobilinogen Urine 0.2 mg/dL (<2.0)
--- OUTSIDE RECORDS SUMMARY | 2024-07-12 01:05 | XMS_ITS | Clinical Summary ---
Author Organization [facility] Address [address] [place] [address] Care Team Providers Care Can Capper Name Role Phone Lori Smith APRN-PAYROLL AND BENEFITS MANAGER Primary Care Provider Source Comments [facility],non-owned Affiliates and Associated Physician Practices is amultiple site organization consisting of ambulatory clinics and hospital sitesin [place], [place], [place] and [place]. This disclosure is being madepursuant to the Care Everywhere program and may not contain all information available regarding this patient. Last updated 18.[facility] Allergies No known active allergies Medications * [...] Department Care Team Description 05/15/2024 11:00 AM JAVA DEVELOPER Office Visit [facility] - Allergy [address] [place] [phone] Artur Mckinley MD Idiopathic anaphylaxis, subsequent encounter (Primary Dx); Urticaria; Mild intermittent asthma without complication (HCC); Allergic rhinitis due to animal hair and dander 05/15/2024 Travel 05/14/2024 Travel 04/12/2024 9:55 AM CDT - 04/12/2024 11:59 PM CDT Hospital Encounter [facility] OP DRAW STATION [address] [place] [address] Discharge Disposition: Home or Self Care 04/12/2024 9:00 AM CDT Office Visit [facility] - Allergy [address] [place] [phone] Artur Mckinley MD Anaphylaxis, subsequent encounter (Primary [...] Comments Blood Pressure 107/72 05/15/2024 11:01 AM JAVA DEVELOPER Pulse 70 05/15/2024 11:01 AM JAVA DEVELOPER Temperature 36.4 ??C (97.5 ??F) 05/15/2024 1 1:01 AM JAVA DEVELOPER Respiratory Rate 18 05/15/2024 11:0 1 AM JAVA DEVELOPER Oxygen Saturation 98% 05/15/2024 11: 01 AM JAVA DEVELOPER Inhaled Oxygen Concentration - - Weight 93.8 kg (206 lb 12.8 oz) 024 11:01 AM JAVA DEVELOPER Height 172.7 cm (5' 8 ) 05/15/2024 11:0 1 AM JAVA DEVELOPER Body Mass Index 31.44 05/15/2024 11:01 AM JAVA DEVELOPER Plan of Treatment Upcoming Encounters Date Type Department Care Team (Late st Contact Info) Description 08/13/2024 11:00 AM JAVA DEVELOPER Office Visit [facility] - Allergy [address] [facility] [place] [phone] Artur Mckinley MD [address] [place] [phone] Health Maintenance Due Date Last Done Comments [...] IMMUNOSCORE IGE INTERP (04/12/2024 10:12 AM CDT) [facility] Signature Immunocap Score See Note 4 3:30 PM JAVA DEVELOPER [facility] ([facility]) Comment: REFERENCE INTERVAL: Allergen, Interpretation Less [...] clinical allergy or even anaphylaxis. Performed By: [employer] [address] [place] [address] Public Policy Mediator: Ed Rowell MD, PhD CLIA Number: [id number] Blood BLOOD SPECIMEN / Unknown Lab Venipuncture / Unknown 04/12/2024 10:12 AM CDT 04/12/2024 10:34 AM CDT Artur Mckinley MD LAB - SEROLOGY ORDER GAYLE Performing Organization Address City/[facility] Co de Phone Number [employer] ([facility]) [address] * ALLERGEN ALPHA GAL IGE (04/12/2024 10:12 AM CDT) Allergen Alpha Gal IgE <0.10 <=0.09 kU/L 04/14/2024 3:26 PM JAVA DEVELOPER [employer] ([facility]) Comment: INTERPRETIVE INFORMATION: Allergen, Food, Alpha-Gal, [...] clinical allergy or even anaphylaxis. Performed By: [employer] [address] [place] [address] Public Policy Mediator: Ed Rowell MD, PhD CLIA Number: [id number] Blood BLOOD SPECIMEN / Unknown Lab Venipuncture / Unknown 04/12/2024 10:12 AM CDT 04/12/2024 10:34 AM CDT Artur Mckinley MD LAB - SEROLOGY ORDER GAYLE Performing Organization Address City/[facility]/ZIP Co de Phone Number [facility] ([facility]) [address] * LAB MISC TEST (04/12/2024 10:12 AM CDT) Test Name ALLERGEN WHEAT IGE W COMPONENT RFLXS 04/19/2024 6:36 AM JAVA DEVELOPER [facility] Test Result See Scanned Report 04/19/2024 6:36 AM JAVA DEVELOPER [facility] Comment Ref Lab [facility] 04/19/2024 6:36 AM JAVA DEVELOPER [facility] Blood BLOOD SPECIMEN / Unknown Lab Venipuncture / Unknown 04/12/2024 10:12 AM CDT 04/12/2024 10:34 AM CDT Artur Mckinley MD LAB SEND OUT Performing Organization Address [facility] [place] [address] * TRYPTASE (04/12/2024 10:12 AM CDT) Tryptase 4.6 <=10.9 ug/L 04/14/2024 4:16 PM JAVA DEVELOPER [facility] ([facility]) Blood BLOOD SPECIMEN / Unknown Lab Venipuncture / Unknown 04/12/2024 10:12 AM CDT 04/12/2024 10:34 AM CDT Artur Mckinley MD LAB - CHEMISTRY LINH EASON Performing Organization Address [facility] de Phone Number [facility] [employer] [facility]) [address] [place] [address] * IGE BLOOD (04/12/2024 10:12 AM CDT) Pathologist [facility] IgE Total 62 <=214 kU/L 04/14/2024 8:16 PM JAVA DEVELOPER [facility] [employer] ([facility]) Comment: REFERENCE INTERVAL: Immunoglobulin E, Serum Access complete set of age- and/or gender-specific reference intervals for this test in the [facility] Test Directory ([facility]). Performed By: [employer] [address] [place] [address] Public Policy Mediator: Ed Rowell MD, PhD CLIA Number: [id number] Blood BLOOD SPECIMEN / Unknown Lab Venipuncture / Unknown 04/12/2024 10:12 AM CDT 04/12/2024 10:34 AM CDT Artur Mckinley MD LAB - CHEMISTRY LINH EASON Performing Organization Address [facility] de Phone Number [facility] ([facility]) [address] [place] [address] [facility] from Last 3 Months Care Teams Can Capper Relationship Specialty Start Date End Date Lori Smith, NAUTICAL INSTRUMENT MECHANIC-PAYROLL AND BENEFITS MANAGER [address] [place] [phone] PCP - General 12/15/21
--- OUTSIDE RECORDS SUMMARY | 2024-07-12 01:05 | XMS_ITS | Patient Health Summary ---
Author Organization [facility] Address [address] [place] [address] Care Team Providers Care Research Home Economist Name Role Phone Lori Smith APRN-SAFETY ADMIN ASSISTANT Primary Care Provider Note from [facility],non-owned Affiliates and Associated Physician Practices is amultiple site organization consisting of ambulatory clinics and hospital sitesin [place], [place], [place] and [place]. This disclosure is being madepursuant to the Care Everywhere program and may not contain all information available regarding this patient. Last updated 18.[facility] Allergies No known active allergies Medications * [...] Comments Blood Pressure 107/72 05/15/2024 11:01 AM ADVERTISING SOLICITOR Pulse 70 05/15/2024 11:01 AM ADVERTISING SOLICITOR Temperature 36.4 ??C (97.5 ??F) 05/15/2024 1 1:01 AM ADVERTISING SOLICITOR Respiratory Rate 18 05/15/2024 11:0 1 AM ADVERTISING SOLICITOR Oxygen Saturation 98% 05/15/2024 11: 01 AM ADVERTISING SOLICITOR Inhaled Oxygen Concentration - - Weight 93.8 kg (206 lb 12.8 oz) 024 11:01 AM ADVERTISING SOLICITOR Height 172.7 cm (5' 8 ) 05/15/2024 11:0 1 AM ADVERTISING SOLICITOR Body Mass Index 31.44 05/15/2024 11:01 AM ADVERTISING SOLICITOR Procedures * IMMUNOSCORE IGE INTERP(Performed 04/12/2024) Performed [...] CDT) Immunocap Score See Note 3:30 PM ADVERTISING SOLICITOR [employer] ([facility]) Comment: REFERENCE INTERVAL: Allergen, Interpretation Less than [...] clinical allergy or even anaphylaxis. Performed By: [facility] [address] [place] [address] [employer] Internship: Ed Rowell MD, PhD CLIA Number: [id number] Blood BLOOD SPECIMEN / Unknown Lab Venipuncture / Unknown 04/12/2024 10:12 AM CDT 04/12/2024 10:34 AM CDT Artur Mckinley MD LAB - SEROLOGY ORDER GAYLE [employer] [facility]) [address] * ALLERGEN ALPHA GAL IGE (04/12/2024 10:12 AM CDT) Allergen Alpha Gal IgE <0.10 <=0.09 kU/L 04/14/2024 3:26 PM ADVERTISING SOLICITOR [employer] ([facility]) Comment: INTERPRETIVE INFORMATION: Allergen, Food, Alpha-Gal, IgE [...] clinical allergy or even anaphylaxis. Performed By: [facility] [address] [place] [address] [employer] Internship: Ed Rowell MD, PhD CLIA Number: [id number] Blood BLOOD SPECIMEN / Unknown Lab Venipuncture / Unknown 04/12/2024 10:12 AM CDT 04/12/2024 10:34 AM CDT Artur Mckinley MD LAB - SEROLOGY ORDER GAYLE Performing Organization Address [facility]/ZIP Co de Phone Number [employer] [facility] [facility]) [address] [place] [address] * LAB MISC TEST (04/12/2024 10:12 AM CDT) Test Name ALLERGEN WHEAT IGE W COMPONENT RFLXS 04/19/2024 6:36 AM ADVERTISING SOLICITOR [employer] [facility] Test Result See Scanned Report 04/19/2024 6:36 AM ADVERTISING SOLICITOR [employer] [facility] Comment Ref Lab [facility] 04/19/2024 6:36 AM ADVERTISING SOLICITOR [employer] [facility] Blood BLOOD SPECIMEN / Unknown Lab Venipuncture / Unknown 04/12/2024 10:12 AM CDT 04/12/2024 10:34 AM CDT Artur Mckinley MD LAB SEND OUT Performing Organization Address City/[facility]/[place] [address] * TRYPTASE (04/12/2024 10:12 AM CDT) Tryptase 4.6 <=10.9 ug/L 04/14/2024 4:16 PM ADVERTISING SOLICITOR [employer] ([facility]) Blood BLOOD SPECIMEN / Unknown Lab Venipuncture / Unknown 04/12/2024 10:12 AM CDT 04/12/2024 10:34 AM CDT Artur Mckinley MD LAB - CHEMISTRY LINH EASON Performing Organization Address City/[facility]/ZIP Co de Phone Number [employer] ([facility]) [address] [place] [address] * IGE BLOOD (04/12/2024 10:12 AM CDT) IgE Total 62 <=214 kU/L 04/14/2024 8:16 PM ADVERTISING SOLICITOR [employer] ([facility]) Comment: REFERENCE INTERVAL: Immunoglobulin E, Serum Access complete set of age- and/or gender-specific reference intervals for this test in the [facility] Test Directory ([employer]). Performed By: [facility] [address] [place] [address] [employer] Internship: Ed Rowell MD, PhD CLIA Number: [id number] Blood BLOOD SPECIMEN / Unknown Lab Venipuncture / Unknown 04/12/2024 10:12 AM CDT 04/12/2024 10:34 AM CDT Artur Mckinley MD LAB - CHEMISTRY LINH EASON [employer] ([facility]) [address] [place] [address] Care Teams Research Home Economist Relationship Specialty Start Date End Date Lori Smith, PERSONAL LINES ACCOUNT EXECUTIVE-SAFETY ADMIN ASSISTANT [address] [place] [phone] PCP - General 12/15/21
--- OUTSIDE RECORDS SUMMARY | 2024-07-12 01:05 | XMS_ITS | Clinical Summary ---
Author Organization [facility] Address [address] [place] [address]. [place] [address] [place] [address] Care Team Providers Care Mechanic Name Role Phone Unavailable Primary Care Provider [...]
--- OUTSIDE RECORDS SUMMARY | 2024-07-12 01:05 | XMS_ITS | Referral Summary ---
Author Organization [facility] [employer] Address [address] [facility] [place] [address] Care Team Providers Care Mammography Tech Name Role Phone Lori Smith Winston CARLIN-POWER PLANT OPERATOR APPRENTICE Primary Care Provider Source Comments [facility],non-owned Affiliates and Associated Physician Practices is amultiple site organization consisting of ambulatory clinics and hospital sitesin [place], [place], [place] and [place]. This disclosure is being madepursuant to the Care Everywhere program and may not contain all information available regarding this patient. Last updated 18.[facility] Encounters Date Type Department Care Team Description 05/15/2024 Travel 05/15/2024 11:00 AM VIDEO RENTAL CLERK Office Visit [facility] - Allergy [address] [place] [phone] Artur Mckinley MD Idiopathic anaphylaxis, subsequent encounter (Primary Dx); Urticaria; Mild intermittent asthma without complication (HCC); Allergic rhinitis due to animal hair and dander 05/14/2024 Travel 04/12/2024 9:55 AM CDT - 04/12/2024 11:59 PM CDT Hospital Encounter [facility] OP DRAW STATION [address] [place] [address] Discharge Disposition: Home or Self Care 04/12/2024 Travel 04/12/2024 9:00 AM CDT Office Visit [facility] - Allergy [address] [place] [phone] Artur Mckinley MD Anaphylaxis, subsequent encounter (Primary [...] Comments Blood Pressure 107/72 05/15/2024 11:01 AM VIDEO RENTAL CLERK Pulse 70 05/15/2024 11:01 AM VIDEO RENTAL CLERK Temperature 36.4 ??C (97.5 ??F) 05/15/2024 1 1:01 AM VIDEO RENTAL CLERK Respiratory Rate 18 05/15/2024 11:0 1 AM VIDEO RENTAL CLERK Oxygen Saturation 98% 05/15/2024 11: 01 AM VIDEO RENTAL CLERK Inhaled Oxygen Concentration - - Weight 93.8 kg (206 lb 12.8 oz) 024 11:01 AM VIDEO RENTAL CLERK Height 172.7 cm (5' 8 ) 05/15/2024 11:0 1 AM VIDEO RENTAL CLERK Body Mass Index 31.44 05/15/2024 11:01 AM VIDEO RENTAL CLERK Plan of Treatment Upcoming Encounters Date Type Department Care Team (Late st Contact Info) Description 08/13/2024 11:00 AM VIDEO RENTAL CLERK Office Visit [facility] - Allergy [address] [facility] [place] [phone] Artur Mckinley MD [address] [place] [phone] Procedures Procedure Name Priority Date/Time Associated Diagnosis [...] CDT) Immunocap Score See Note 3:30 PM VIDEO RENTAL CLERK [facility] ([facility]) Comment: REFERENCE INTERVAL: Allergen, Interpretation Less than [...] clinical allergy or even anaphylaxis. Performed By: [facility] [address] [place] [address] Utilization Review Coordinator: Ed Rowell MD, PhD CLIA Number: [id number] Blood BLOOD SPECIMEN / Unknown Lab Venipuncture / Unknown 04/12/2024 10:12 AM CDT 04/12/2024 10:34 AM CDT Artur Mckinley MD LAB - SEROLOGY ORDER GAYLE [facility]) [address] [place] [address], [facility] * ALLERGEN ALPHA GAL IGE (04/12/2024 10:12 AM CDT) Allergen Alpha Gal IgE <0.10 <=0.09 kU/L 04/14/2024 3:26 PM VIDEO RENTAL CLERK [facility] [employer] ([facility]) Comment: INTERPRETIVE INFORMATION: Allergen, Food, Alpha-Gal, IgE [...] clinical allergy or even anaphylaxis. Performed By: [facility] [address] [place] [address] Utilization Review Coordinator: Ed Rowell MD, PhD CLIA Number: [id number] Blood BLOOD SPECIMEN / Unknown Lab Venipuncture / Unknown 04/12/2024 10:12 AM CDT 04/12/2024 10:34 AM CDT Artur Mckinley MD LAB - SEROLOGY ORDER GAYLE Performing Organization Address [facility] Co de Phone Number [employer] ([facility]) [address] [place] [address] * LAB MISC TEST (04/12/2024 10:12 AM CDT) Test Name ALLERGEN WHEAT IGE W COMPONENT RFLXS 04/19/2024 6:36 AM VIDEO RENTAL CLERK [facility] Test Result See Scanned Report 04/19/2024 6:36 AM VIDEO RENTAL CLERK [facility] Comment Ref Lab [facility] 04/19/2024 6:36 AM VIDEO RENTAL CLERK [employer] Blood BLOOD SPECIMEN / Unknown Lab Venipuncture / Unknown 04/12/2024 10:12 AM CDT 04/12/2024 10:34 AM CDT Artur Mckinley MD LAB SEND OUT Performing Organization Address [facility] [place] [address] * TRYPTASE (04/12/2024 10:12 AM CDT) Tryptase 4.6 <=10.9 ug/L 04/14/2024 4:16 PM VIDEO RENTAL CLERK [employer] ([facility]) Blood BLOOD SPECIMEN / Unknown Lab Venipuncture / Unknown 04/12/2024 10:12 AM CDT 04/12/2024 10:34 AM CDT Artur Mckinley MD LAB - CHEMISTRY LINH EASON Performing Organization Address City/[facility]/ZIP Co de Phone Number [employer] ([facility]) [address] [place] [address], [facility] * IGE BLOOD (04/12/2024 10:12 AM CDT) IgE Total 62 <=214 kU/L 04/14/2024 8:16 PM VIDEO RENTAL CLERK [employer] ([facility]) Comment: REFERENCE INTERVAL: Immunoglobulin E, Serum Access complete set of age- and/or gender-specific reference intervals for this test in the [facility] Test Directory ([employer]). Performed By: [facility] [employer] [address] [place] [id number] Utilization Review Coordinator: Ed Rowell MD, PhD CLIA Number: [id number] Blood BLOOD SPECIMEN / Unknown Lab Venipuncture / Unknown 04/12/2024 10:12 AM CDT 04/12/2024 10:34 AM CDT Artur Mckinley MD LAB - CHEMISTRY LINH EASON [employer] ([facility]) [address] [place] [id number], [facility] from Last 3 Months Care Teams Mammography Tech Relationship Specialty Start Date End Date Lori Smith, SAGGER FILLER-POWER PLANT OPERATOR APPRENTICE [address] [place] [phone] PCP - General 12/15/21
--- OUTSIDE RECORDS SUMMARY | 2024-07-12 01:05 | XMS_ITS | Clinical Summary ---
Author Organization [facility] Address [address] [place] [address] Phone Care Team Providers Care Boat Rental Clerk Name Role Phone Lori Smith APRN, CNP [...] on file Legal Sex Female 1:09 PM EPIC RADIANT ANALYST Gender Identity Not on file Sexual Orientation Not on file Last Filed Vital Signs Vital Sign Reading Time Taken Comments Blood Pressure 119/82 05/19/2021 5:15 PM EPIC RADIANT ANALYST Pulse 79 05/19/2021 5:15 PM EPIC RADIANT ANALYST Temperature 36.9 ??C (98.5 ??F) 05/19/2021 1:42 PM CS T Respiratory Rate 16 05/19/2021 5:15 PM EPIC RADIANT ANALYST Oxygen Saturation 100% 05/19/2021 5:15 PM EPIC RADIANT ANALYST Inhaled Oxygen Concentration - - Weight 103 kg (227 lb) 05/19/2021 1:42 PM EPIC RADIANT ANALYST Height 172.7 cm (5' 8 ) 05/19/2021 1:42 PM EPIC RADIANT ANALYST Body Mass Index 34.52 05/19/2021 1:42 PM EPIC RADIANT ANALYST Plan of Treatment Health Maintenance Due Date [...] to complete this topic Insurance [place] [address] Care Teams Boat Rental Clerk Relationship Specialty Start Date End Date Lori Smith APRN, LOG BUYER [address] [place] [address] PCP - General Certified Nurse Practitioner 05/19/21
--- NOTE | 2024-07-12 01:54 | ED_ITS ---
HPI - Abdominal Pain General Chief Complaint: Abdominal Pain Stated Complaint: epigastric pain Time Seen by Provider: 07/12/24 01:00 Source: patient Mode of arrival: ambulatory Limitations: no limitations History of Present Illness HPI narrative: Patient presents with epigastric abdominal pain. Also having increased eructation with foul tasting burps. Started 07/07/24. Worse with movement. Described as sharp, nagging pain but otherwise not radiating towards back or into chest or down into abdomen/pelvis. Was 6/10 now 4/10 severity. No prior EGD or colonoscopy, does not follow with a graphic engineer. Pain occurs intermittently. Pain goes away if she drinks through a straw. Travelled to [place] 06/28 - 07/02. Takes Pepcid BID along with a combination of other medications as part of a regimen for allergies/history of anaphylaxis as prescribed by her analytics leader. History of pancreatitis years ago but that was felt to be secondary to gallstones and she has since has a cholecystectomy. Took Obed 17:30 which is a medication she has prescribed to her PRN given she has been on a semaglutide. No dose change in the past 2.5 months has been on 20mg (started taking this med May last year). Zofran helped briefly. No dysuria, hematuria, urgency or frequency. Nausea returned at 10pm; no emesis. DIarrhea since cholecystectomy. No constipation or blood. No recent antibiotics. No fevers/chills. LBM yesterday. LMP ended approximately 1 week ago. 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 Code status: Full code. 04/23/24 very confident with medical forms Smoking packs per day: 1 Smoking cigarettes per day: 20.0 Years smoked: 30 Smoking pack-years: 30.00 Smoking status: Former smoker Additional smoking assessment comments: Quit in 2018. Alcohol intake: former Substance use: never Do You Feel Safe in your Home?: Yes Lack of Transportation: No Lack of Food: Never True Current Housing: I Have Housing Concerned About Future Housing: No Difficulty Paying Gas/Electric Bills: No Difficulty Paying for Meds: No Currently Unemployed: No Education: Bachelor's Degree Difficulty w/ Childcare or Family Care: No Living arrangements: with family Additional living arrangements comments: Lives with her and 4 children. 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 Gender identity (if verbalized by the patient): Female Spiritual care concerns: No (Scientology) Agree to blood products: Yes Exam 2 Narrative: GENERAL: Well-appearing, well-nourished, and in no acute distress. Non toxic appearing. HEAD: Normocephalic, atraumatic. EYES: Non injected, non icteric ENT: Nares clear, no rhinorrhea or epistaxis. NECK: Supple. CHEST: Speaking in full sentences. No respiratory distress. HEART: Regular rate and rhythm. . ABDOMEN: Soft, nondistended. Non tender to palpation. No ridigity/guarding. Not peritoneal. EXTREMITIES: Normal range of motion. No lower extremity edema. SKIN: Warm, dry, no rash. NEURO: No focal deficits. Alert and oriented x3. PSYCH: Normal mood and affect. Very pleasant and engaged in care. Course Vital Signs Vital signs: Vital Signs Pulse Rate 81 07/12/24 02:35 Respiratory Rate 14 07/12/24 02:35 Blood Pressure 115/68 07/12/24 02:35 Pulse Oximetry 100 07/12/24 02:35 Temperature 98.1 F 07/12/24 05:03 Pulse Rate 77 07/12/24 05:03 Respiratory Rate 14 07/12/24 05:03 Blood Pressure 102/74 07/12/24 05:03 Pulse Oximetry 100 07/12/24 05:03 MDM - Abdominal Pain MDM Narrative Medical decision making narrative: Patient presents with epigastric abdominal pain. In the ED she is afebrile with VS within normal limits. Benign abdominal exam. Patient given PPI and GI cocktail. Lipase within normal limits. Patient has some white blood cells and leukocyte esterase in urine but otherwise without bacteria. She is otherwise asymptomatic as she denies any dysuria, urgency, frequency, or hematuria. For this reason will defer giving antibiotics and await urine culture results. Will defer obtaining imaging at this time. Patient reassessed and feeling better. Will discharge with prescriptions for PPI but advised she contact her analytics leader regarding the need to continue or discontinue the Pepcid she takes at baseline as part of her regimen for her allergies. She states she was told its role is to help her process the other medications she is taking for this purpose. Verifies understanding and comfortable with the plan. Differential Diagnosis Differential diagnosis: Likely abdominal pain, constipation, diverticulitis, endometriosis, pancreatitis and other (gastritis/GERD; medication side effect) Lab Data Attestation: I reviewed the patient's lab results. Lab results narrative: CBC generally unremarkable 07/11/24 23:09 07/11/24 23:09 Labs: Lab Results 07/11/24 07/11/24 Range/Units 23:09 23:23 WBC 6.3 (4.5-10.0) K/mm3 RBC 4.58 (4.2-5.4) M/mm3 Hgb 13.1 (12.0-15.0) g/dL Hct 39.6 (37.0-47.0) % MCV 86.5 (80-100) fl MCH 28.6 (26-34) pg MCHC 33.1 (32-36) g/dl RDW 13.1 (11.5-14.5) % Plt Count 220 (150-375) k/mm3 MPV 11.0 H (7.4-10.4) fl Immature Gran % (Auto) 0.3 (0-0.5) % Neut % (Auto) 60.5 (45.5-73.1) % Lymph % (Auto) 28.3 (18.3-44.2) % [place] % (Auto) 6.9 (2.6-8.5) % Eos % (Auto) 3.7 (0-4.4) % Baso % (Auto) 0.3 (0.2-1.2) % Lymph # (Auto) 1.77 (0.9-3.2) K/mm3 [place] # (Auto) 0.4 (0.1-0.6) K/mm3 Eos # (Auto) 0.2 (0-0.3) K/mm3 Baso # (Auto) 0.0 (0.0-0.1) K/mm3 Abs Immat Gran (auto) 0.02 (0.00-0.031) K/mm3 Absolute Neuts (auto) 3.8 (1.3-6.7) K/mm3 Absolute Nucleated RBC 0.000 (0.0-0.012) K/mm3 Nucleated RBC % 0.0 (0.0-0.2) % Sodium 138 (137-145) mmol/L Potassium 3.6 (3.4-5.0) mmol/L Chloride 102 (98-107) mmol/L Carbon Dioxide 26 (22-30) mmol/L Anion Gap 10 (4-12) mmol/L BUN 7 (7-17) mg/dL Creatinine 0.88 (0.7-1.0) mg/dL Estim Creat Clear Calc Not Reportable Estimated GFR > 60 (59 - ) Glucose 93 (65-110) mg/dL Calcium 9.6 (8.4-10.2) mg/dL Magnesium 2.2 (1.6-2.3) mg/dL Total Bilirubin 0.8 (0.2-1.3) mg/dL AST 18 (14-36) U/L ALT 14 (6-35) U/L Alkaline Phosphatase 74 (38-126) U/L Total Protein 7.0 (6.3-8.2) g/dL Albumin 4.4 (3.5-5.1) g/dL Lipase 168 (23-300) U/L Urine Color Yellow (Yellow) Urine Appearance Cloudy H (Clear) Urine pH 6.0 (5.0-9.0) Ur Specific [place] 1.002 (1.001-1.035) Urine Protein Negative (Negative) mg/dL Urine Glucose (UA) Negative (Negative) mg/dL Urine Ketones Negative (Negative) mg/dL Ur Blood (Man) Negative (Negative) Urine Nitrate Negative (Negative) Urine Bilirubin Negative (Negative) Urine Urobilinogen 0.2 (<2.0) mg/dL Add Ur Microanalysis Reviewed Leukocyte Esterase Rfl 2+ H (Negative) ELVA/UL Urine RBC 0-2 (0-2) /hpf Urine WBC 11-20 H (0-3) /hpf Ur Squamous Epith Cells Occasional (Few) /hpf Urine Bacteria None seen /hpf Urine Casts 0-2 Discharge Plan Discharge Clinical Impression: Epigastric abdominal pain Patient Disposition: Home, Self-Care Condition: Stable Instructions: Antibiotic Form, Epigastric Pain (ED) Additional Instructions: As we discussed, the medication in the drug class PPI (proton pump inhibitors) may be more effective for the symptoms you have been having. Discussed with your analytics leader whether you should discontinue the Pepcid or take both. Follow- up with your primary care physician. Return to the emergency department with any new or worsening symptoms. Patient Language: Dutch Prescriptions: New omeprazole 20 mg tablet,delayed release (DR/EC) 20 mg PO DAILY Qty: 30 0RF No Action cetirizine 10 mg tablet montelukast 10 mg tablet semaglutide (weight loss) diphenhydramine HCl [Benadryl] 25 mg capsule 25 mg PO QHS PRN famotidine [Zantac-360 (famotidine)] 20 mg tablet 20 mg PO DAILY Qty: 90 1RF epinephrine [EpiPen 2-Abelardo] 0.3 mg/0.3 mL auto-injector 0.3 mg IM ONCE Qty: 2 0RF Rx Instructions: as a single dose; may repeat once epinephrine [EpiPen 2-Abelardo] 0.3 mg/0.3 mL auto-injector 0.3 mg IM Q5-15M PRN (Reason: anaphylaxis) Qty: 2 0RF Rx Instructions: do not exceed 3 doses per episode Follow-up/Referrals: Lori Lacey APRN [Primary Care Provider] - Stand Alone Forms: Work/School Release IP Time of Disposition: 04:48
[2024-07-12 02:16] LABS: Magnesium 2.2 mg/dL (1.6-2.3)
[2024-07-12] MEDS: BELLADONNA ALK/PHENOB ELIX 10 ML, MAG HYDROX/ALUMINUM HYD/SIMETH 30 ML, LIDOCAINE 2% VI... PO (02:34)
[2024-07-12 02:35] VITALS: BP 115/68; PULSE 81; RESP 14; O2SAT 100
[2024-07-12] MEDS: PANTOPRAZOLE 40 MG TABLET PO (02:35)
[2024-07-12 05:03] VITALS: BP 102/74; PULSE 77; RESP 14; TEMP 36.7; O2SAT 100
== END 2024-07-12 05:04 | disposition home or self-care (01) ==
PROVIDERS: Emergency Provider Student in an Organized Health Care Education/Training Program; PCP Nurse Practitioner Family
DX: R10.13 Epigastric pain (principal); J45.909 Unspecified asthma, uncomplicated; Z86.2 Personal history of diseases of the blood and blood-forming organs and certain disorders involving the immune mechanism; Z87.891 Personal history of nicotine dependence; Z90.49 Acquired absence of other specified parts of digestive tract
CPT/HCPCS: 36415; 80053; 81001; 83690; 83735; 85025; 87086; 99283; A9270

== ENCOUNTER 2025-05-05 09:05 | Emergency (ER) | payer OTHER, SELFPAY ==
--- OUTSIDE RECORDS SUMMARY | 2025-05-05 09:53 | XMS_ITS | Clinical Summary ---
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 Gender Identity Not on file Sexual Orientation Not on file Last Filed Vital Signs Vital Sign Reading Time Taken Comments Blood Pressure 119/82 05/19/2021 5:15 PM STRUCTURAL STEEL WORKER Pulse 79 05/19/2021 5:15 PM STRUCTURAL STEEL WORKER Temperature 36.9 C (98.5 F) 05/19/2021 1:42 PM STRUCTURAL STEEL WORKER Respiratory Rate 16 05/19/2021 5:15 PM STRUCTURAL STEEL WORKER Oxygen Saturation 100% 05/19/2021 5:15 PM STRUCTURAL STEEL WORKER Inhaled Oxygen Concentration - - Weight 103 kg (227 lb) 05/19/2021 1:42 PM STRUCTURAL STEEL WORKER Height 172.7 cm (5' 8) 05/19/2021 1:42 PM STRUCTURAL STEEL WORKER Body Mass Index 34.52 05/19/2021 1:42 PM STRUCTURAL STEEL WORKER Plan of Treatment Health Maintenance Due Date Last Done Comments Hepatitis C Virus (HCV) Screening 1982 Varicella Immunization (1 of 2 - 13+ 2-dose series) 1995 Hepatitis B Immunization (1 of 3 - 19+ 3-dose series) 2001 Pap Smear 2003 Human Papillomavirus (HPV) Immunization (1 - 3-dose SCDM series) 2009 Cervical Cancer Screening (CCS) 2012 HPV/Cotest 2012 Influenza Immunization (#1) 2025 SARS-COV-2 Immunization (3 - 2024- season) 2025 02/11/2021, 01/21/2021 Respiratory Syncytial Virus (RSV) Immunization [...] to complete this topic Insurance MEDICAID [place] Care Teams Surgical Supply Assistant Relationship Specialty Start Date End Date Lori Smith APRN, MEAT APPRENTICE [address] [place] [id number] PCP - General Certified Nurse Practitioner 05/19/21
--- OUTSIDE RECORDS SUMMARY | 2025-05-05 09:53 | XMS_ITS | Clinical Summary ---
Author Organization [facility] Address [facility] [place] [address] Care Team Providers Care Sleeve Separator Name Role Phone Unavailable Primary Care Provider [...] of 3 - 19+ 3-dose series) 2001 HPV Vaccines (1 - 3-dose SCD M series) 2009 Cervical Cancer Screening Pa p with HPV Testing (Age 30 to 64) Every 5 Years 2012 Cervical Cancer Screening with HPV 2012 Mammogram Screening 2022 COVID-19 Vaccine (2024-2 6 season) 2025 Influenza Adult (#1) 2025 Hepatitis A Vaccines Aged Out No long er eligible based on patient's age to complete this topic Meningococcal B Vaccine Aged Out No l onger eligible based on patient's age to complete this topic Meningococcal Vaccine Aged Out No robin servando eligible based on patient's age to complete this topic Pneumococcal Vaccine: Pediat rics (0 to 5 Years) and At-Risk Patients (6 to 49 Years) Aged Out No longer eligible b ased on patient's age to complete this topic RSV Immunizations Under 20 Months Aged Out No longer eligible based on patient's age to complete this topic
--- OUTSIDE RECORDS SUMMARY | 2025-05-05 09:53 | XMS_ITS | Clinical Summary ---
Author Organization [facility] Address [address] [place] [address] Care Team Providers Care Tawer Name Role Phone Lori Smith APRN-RELEASE MANAGER Primary Care Provider Artur Mckinley MD Unavailable [phone] Source Comments [facility],non-owned Affiliates and Associated Physician Practices is amultiple site organization consisting of ambulatory clinics and hospital sitesin [place], [place], [place] and [place]. This disclosure is being madepursuant to the Care Everywhere program and may not contain all information available regarding this patient. Last updated 18.[facility] Allergies No known active allergies Medications * Be aware that medications may not be up to date on this document. Alwaysverify current medications with the patient. 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 Mild intermittent asthma without complication Encounters Date Type Department Care Team Description 02/05/2025 9:30 AM CDT Office Visit [facility] - Allergy [address] [place] [phone] Artur Mckinley MD Idiopathic anaphylaxis, subsequent encounter (Primary Dx); Mild intermittent asthma without complication (HCC); Epigastric pain; Allergic rhinitis due to animal hair and dander 02/05/2025 Travel from Last 3 Months Social History Tobacco Use Types Packs/Day Years Used Date Smoking Tobacco: Never Smokeless Tobacco: Never Tobacco Cessation:Counseling Given: Not Answered Alcohol Use Standard Drinks/Week Comments Never 0 (1 standard drink = 0.6 oz pur e alcohol) PHQ-2 Answer Date Recorded Patient Health Questionnaire-2 Score 0 04/12/2024 Comments Unknown Sex and Gender Information Value Date Recorded Sex Assigned at Female 04/12/2024 6:00 PM CDT Legal Sex Female 4:06 AM CDT Gender Identity Female 04/12/2024 6:00 PM CDT Sexual Orientation Not on file Last Filed Vital Signs Vital Sign Reading Time Taken Comments Blood Pressure 99/65 02/05/2025 9:44 AM CDT Pulse 72 02/05/2025 9:44 AM CDT Temperature 36.3 C (97.3 F) 02/05/2025 9:44 AM CDT Respiratory Rate 18 02/05/2025 9:44 AM CDT Oxygen Saturation 100% 02/05/2025 9:44 AM CDT Inhaled Oxygen Concentration - - Weight 81.2 kg (179 lb) 02/05/2025 9:44 AM CDT Height 172.7 cm (5' 8) 02/05/2025 9:44 AM CDT Body Mass Index 27.22 02/05/2025 9:44 AM CDT Plan of Treatment Upcoming Encounters Date Type Department Care Team (Late st Contact Info) Description 07/31/2025 11:30 AM EVENT MANAGER Office Visit [facility] - Allergy [address] [place] [phone] Artur Mckinley MD [address] [place] [phone] Health Maintenance Due Date Last Done Comments LIPID TESTING 1982 MAMMOGRAM 1982 HIV SCREENING 1997 HEPATITIS C SCREENING 05/08/2000 DTAP/TDAP/TD VACCINES (1 - Tdap) 2001 HEPATITIS B VACCINE (1 of 3 - 19+ 3-dose series) 2001 PNEUMOCOCCAL VACCINE (1 of 2 - PCV) 2001 HPV VACCINE (1 - 3-dose SCDM series) 2009 PAP with HPV 2012 SCREENING FOR DIABETES 05/15/2024 DEPRESSION SCREENING 06/12/2024 04/12/2024 COVID-19 VACCINE ( season) 2025 04/20/2022, 02/16/2022, 02/11/2021, Additional history exists INFLUENZA VACCINE (#1) 2025 04/20/2022 Cervical Cancer Screening 03/10/2026 PAP SMEAR 03/10/2026 03/10/2023, 03/10/2023 ZOSTER VACCINE (1 of 2) 2032 HIB VACCINE Aged Out No longer eligi ble based on patient's age to complete this topic MENINGOCOCCAL (Group B) VACCINE SHARED DECISION-MAKING Aged Out No longer eligible based on patient's age to complete this topic MENINGOCOCCAL GROUPS A/C/Y/W VACCINE Aged Out No longer eligible based on patient's age to complete this topic Insurance [facility] Care Teams Tawer Relationship Specialty Start Date End Date Lori Smith, MERCHANDISING DIRECTOR-RELEASE MANAGER [address] [place] [phone] PCP - General 12/15/21 Artur Mckinley MD [address] [place] [phone] Physician Allergy and Immunology 01/06/25
[2025-05-05 09:57] VITALS: BP 111/65; PULSE 65; RESP 18; TEMP 36.5; O2SAT 99
--- NOTE | 2025-05-05 10:33 | ED_ITS ---
HPI - URI/Sore Throat General Chief Complaint: Upper Respiratory Infection Stated Complaint: strep Time Seen by Provider: 05/05/25 10:20 Source: patient and RN notes reviewed Mode of arrival: ambulatory Limitations: no limitations History of Present Illness HPI Narrative: 44-year-old female presents today complaining of a 3 day history of headache nasal congestion with sore throat since yesterday. Currently rates her pain 2/10 and has been taking some Tylenol with some improvement. Three children similar symptoms. 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 Code status: Full code. 04/23/24 very confident with medical forms Smoking packs per day: 1 Smoking cigarettes per day: 20.0 Years smoked: 30 Smoking pack-years: 30.00 Smoking status: Former smoker Additional smoking assessment comments: Quit in 2018. Alcohol intake: former Substance use: never Do You Feel Safe in your Home?: Yes Lack of Transportation: No Lack of Food: Never True Current Housing: I Have Housing Concerned About Future Housing: No Difficulty Paying Gas/Electric Bills: No Difficulty Paying for Meds: No Currently Unemployed: No Education: Bachelor's Degree Difficulty w/ Childcare or Family Care: No Living arrangements: with family Additional living arrangements comments: Lives with her and 4 children. 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 Gender identity (if verbalized by the patient): Female Spiritual care concerns: No (Scientology) Agree to blood products: Yes Comments At time of signature, I have reviewed and agree with nursing past medical, surgical, social and family history unless otherwise noted. Please see nursing chart for further information. There is no relevant family history pertinent to the presenting complaint Exam Narrative: GENERAL: Well-appearing, well-nourished, and in no acute distress. HEAD: Normocephalic, atraumatic. EYES: EOMI. No redness or drainage. Conjunctivae normal. ENT: Mucous membranes pink and moist. Nares clear. No rhinorrhea. TMs normal bilaterally. Throat normal. Uvula midline. NECK: Normal AROM. Supple. No lymphadenopathy. CHEST: No respiratory distress. Clear to auscultation. HEART: Regular rate and rhythm. No murmur appreciated. EXTREMITIES: Normal range of motion. No edema. SKIN: Warm, dry, no rash. Capillary refill normal. Normal skin turgor. NEURO: No focal deficits. Alert and oriented x3. Gait steady. PSYCH: Normal affect. No signs of depression or anxiety. Course Course Level of Care: Express Care Visit Vital Signs Vital signs: Vital Signs Temperature 97.7 F 05/05/25 09:57 Pulse Rate 65 05/05/25 09:57 Respiratory Rate 18 05/05/25 09:57 Blood Pressure 111/65 05/05/25 09:57 Pulse Oximetry 99 05/05/25 09:57 Oxygen Delivery Room Air 05/05/25 09:57 Temperature 97.7 F 05/05/25 09:57 Pulse Rate 65 05/05/25 09:57 Respiratory Rate 18 05/05/25 09:57 Blood Pressure 111/65 05/05/25 09:57 Pulse Oximetry 99 05/05/25 09:57 Oxygen Delivery Room Air 05/05/25 09:57 Reviewed MDM - URI/Sore Throat MDM Narrative Medical decision making narrative: 44-year-old female presents today complaining of a 3 day history of headache nasal congestion with sore throat since yesterday. Currently rates her pain 2/10 and has been taking some Tylenol with some improvement. Three children similar symptoms. Normal physical exam. Rapid strep negative. Culture pending. Symptoms likely viral in etiology. Discussed [id number] medication use and duration of illness. No prescription medications indicated at this time. Anticipatory guidance given. Differential Diagnosis Differential diagnosis: Likely upper respiratory infection, viral infection, pharyngitis and other (Strep throat) Lab Data Attestation: I reviewed the patient's lab results. Lab results narrative: Rapid strep negative Critical Care Time Critical Care Time Critical Care Time: No Discharge Plan Discharge Clinical Impression: Upper respiratory infection Qualifiers: URI type: unspecified URI Qualified Code(s): J06.9 - Acute upper respiratory infection, unspecified Patient Disposition: Home Condition: Stable Instructions: Upper Respiratory Infection (DC) Additional Instructions: Your rapid strep swab was negative today at [facility]. You will be notified in a few days if the culture comes back positive for strep, and appropriate antibiotics will be called in for you at that time. Your symptoms are likely due to a viral illness, which is not treated with antibiotics. Viral symptoms can be present for up to 7-10 days. Take Tylenol or ibuprofen for fever or pain. Rest and stay hydrated. Follow up with your PCP in 7 days if symptoms are not improving. Go to the ER immediately if you have any difficulty breathing or swallowing. Patient Language: Icelandic Prescriptions: No Action epinephrine [EpiPen 2-Abelardo] 0.3 mg/0.3 mL auto-injector 0.3 mg IM ONCE Qty: 2 0RF Rx Instructions: as a single dose; may repeat once epinephrine [EpiPen 2-Abelardo] 0.3 mg/0.3 mL auto-injector 0.3 mg IM Q5-15M PRN (Reason: anaphylaxis) Qty: 2 0RF Rx Instructions: do not exceed 3 doses per episode Follow-up/Referrals: Lori Smith APRN [Primary Care Provider, [facility]] Time of Disposition: 10:36
[2025-05-05 11:52] LABS: EDSTREPNEGPOS1 Negative (Negative)
== END 2025-05-05 10:49 | disposition home or self-care (01) ==
PROVIDERS: Emergency Provider Nurse Practitioner; PCP Nurse Practitioner Family
DX: J06.9 Acute upper respiratory infection, unspecified (principal); Z87.891 Personal history of nicotine dependence
CPT/HCPCS: 87081; 87880; 99213; G0463